=== PATIENT | female | born 1975 | race Caucasian/White ===

== ENCOUNTER 2025-01-31 11:19 | Outpatient (CLI) | payer BC, SELFPAY ==
--- NOTE | 2025-01-31 | CA_ITS ---
APPROVED REPORT Exam: Exercise Treadmill Technologist: Michelle Toledo Stress Nurse: Nathalia MENDOSA, RN Ht: 5 ft 6 in Wt: 191 lbs BSA: 1.96 m2 HR: 85 bpm BP: 143/89 mmHg Indications: Rule out ischemia due to chest pain, abnormal ECG Stress Test Details Test: Exercise stress testing was performed using a Dave protocol. HR Resting HR: 85 bpm Max Heart Rate (APMHR): 169.337208 bpm Max HR Achieved: 164 bpm Target HR (85% APMHR): 143.791028 bpm % of APMHR: 97.04 Recovery HR: 103 bpm BP Resting BP: 143.0/89.0 mmHg Max BP: 172.0/88.0 mmHg Recovery BP: 134.0/70.0 mmHg ECG Resting ECG: Sinus rhythm Stress ECG Conclusion Symptoms: None Arrhythmias/Ectopy: PVC ST-T Changes: Less than 0.[address] segment changes. Conclusion: Goel Treadmill Score: + 9 Electronically signed by : Мария Zarate MD 02/01/2025 00:11:13
--- OUTSIDE RECORDS SUMMARY | 2025-01-31 11:24 | XMS_ITS | Continuity of Care Document ---
Author Organization [facility] Address [address] [place] [address] Assessment No assessment recorded. Plan of Treatment Reminders Order Date Submit Date Provider Last Modified By Organization Details Last Modified Time Details Appointments Follow Up 20 2025 08:40A Sabrina Smith PA-C Not available Not available Not available Lab magnesium , serum or plasma 2024 025 JULIANNA [facility], [address], [address], [place], [address], 12/23/2024 08:26:28 renal function panel, serum 2024 025 JULIANNA [facility], [address], [address], [place], [address], 12/23/2024 08:26:28 Referral cardiolog ist referral 2024 025 JULIANNA Not available 01/11/2025 12:20:05 Procedures None recorded. Surgeries None recorded. Imaging electroca rdiogram 2024 025 [email or web address] [facility], [address] [place], [address], 12/22/2024 15:04:11 Medication Orders None recorded. Patient TargetsNo targets recorded. Patient Instructions Encounter Date Encounter Id Patient Instructions Last Modified By Organization Details Last Modified Time 12/22/2024 [id number] CALL W CHANGES RTC OR ED IF SYMPTOMS CHANGE OR WORSEN KEEP NEXT INTERVAL CHECKUP CONT CHRONIC MEDS PERSCRIBED CHRONIC ISSUES ARE STABLE DISCUSSED NATURAL AND EXPECTED COURSE OF THIS DIAGNOSIS AND NEED TO ALERT ME IF SYMPTOMS DO NOT FOLLOW EXPECTED COURSE, OR IF ANY WORSEN INCREASE HCTZ TO 25MG PO QD. asa 81mg po qd. [email or web address] Not available 12/22/2024 14:41:46 Reason for Referral Adventure Therapist Referral for Ch est discomfort Referring Physician: Davonte Smith, Family Medicine, Encounter Date: 12/22/2024 Results Created Date Observation Date Name Description Value Unit Range Abnormal Flag Note LastModifiedBy Organization Detail LastModifiedTime 12/23/1912/23/2024 RENAL PANEL (10) glucose 137 mg/dL 70-99 above high normal Not Available [facility] [address] [place], [address], 12/23/2024 08:26:28 12/23/19 25 12/23/2024 RENAL PANEL (10) BUN 10 mg/dL 6-24 normal Not Available [facility] [address] [place], [address], 12/23/2024 08:26:28 12/23/1912/23/2024 RENAL PANEL (10) creatinine 0.75 mg/dL 0.57-1 .00 normal Not Available [facility] [address] [place], [address], 12/23/2024 08:26:28 12/23/1912/23/2024 RENAL PANEL (10) eGFR 96 mL/mi n/1.7 3 >59 normal Not Available [facility] [address] [place], [address], 12/23/2024 08:26:28 12/23/1912/23/2024 RENAL PANEL (10) BUN/creatini ne ratio 13 9-23 normal Not Available [facility] [address] [place], [address], 12/23/2024 08:26:28 12/23/19 25 12/23/2024 RENAL PANEL (10) sodium 136 mmol/ L 134-14 4 normal Not Available [facility] [address] [facility] [place], [address], 12/23/2024 08:26:28 12/23/19 25 12/23/2024 RENAL PANEL (10) potassium 3.3 mmol/ L 3.5-5. 2 below low normal Not Available [facility] [address] [facility] [place], [address], 12/23/2024 08:26:28 12/23/19 25 12/23/2024 RENAL PANEL (10) chloride 99 mmol/ L 96-106 normal Not Available [facility] [address] [facility] [place], [address], 12/23/2024 08:26:28 12/23/19 25 12/23/2024 RENAL PANEL (10) carbon dioxide, total 22 mmol/ L 20-29 normal Not Available [facility] [address] [facility] [place], [address], 12/23/2024 08:26:28 12/23/19 25 12/23/2024 RENAL PANEL (10) calcium 9.3 mg/dL 8.7-10 .2 normal Not Available [facility] [address] [facility] [place], [address], 12/23/2024 08:26:28 12/23/19 25 12/23/2024 RENAL PANEL (10) phosphorus 3.2 mg/dL 3.0-4. 3 normal Not Available [facility] [address] [facility] [place], [address], 12/23/2024 08:26:28 12/23/19 25 12/23/2024 RENAL PANEL (10) albumin 4.2 g/dL 3.8-4. 9 normal Not Available [facility] [address] [place], [address], 12/23/2024 08:26:28 12/23/1912/23/2024 MAGNE SIUM magnesium 2.0 mg/dL 1.6-2. 3 normal Not Available [facility] [address] [facility], [place], [address], 12/23/2024 08:26:28 12/23/19 25 12/27/2024 elect rocar diogr am No observ ation record ed. [email or web address] [facility] [address] [facility], [place], [address], 12/27/2024 13:54:52 12/24/1912/22/2024 elect rocar diogr am No observ ation record ed. JENNYFER [facility] [address] [place], [address], 12/23/2024 11:31:23 Result Notes None recorded. Problems Name Problem SNOMED Code Status Onset Date Resolution Date Notes Provider Name and Address Organization Details Recorded Time Exposure to SARS-CoV -2 Completed 07/03/2020 Removal Reason: Problem added by user arshal l45 from the COVID-19 watch flag Amara Pedraza null, [place] - [facility] 1 08:23:57 Hyperten sive disorder 61269183 Active 2018 Octavia Rojo null, [place] - [facility] 9 08:51:29 Anxiety 23888707 Active 2018 Octavialuca Rojo null, [place] - [facility] 9 08:51:35 Depressi ve disorder 92049546 Active 2018 Octavia Grullonter null, [place] - [facility] 9 08:51:40 Inguinal lymphade nopathy 067593898 Completed 201905/29/2021 Jane Franco, [employer] [address], [place], [address] , [place] - [facility] 2 15:54:19 Uterine leiomyom a 52132235 Active 2019 Jane Franco APRN [address], [place], [address] , [place] - [facility] 0 12:48:28 Endometr ium thickene d 205757057 Completed 201912/25/2019 Noreen Segura MD [address], [place], [address] , [place] [facility] 0 18:23:33 Menorrha cristóbal 071456041 Completed 201905/29/2021 Jane Franco APRN [address], [place], [address] , [place] [facility] 3 15:27:49 Enlarged uterus 241419882 Completed 201912/25/2019 Noreen Segura MD [address], [place], [address] , [place] [facility] 0 18:23:38 Polyp of corpus uteri 21230059 Completed 201905/29/2021 Jane Franco APRN [address], [place], [address] , [place] [facility] 2 15:54:15 Crying associat ed with mood 700199472 Completed 202108/11/2022 Jane Franco APRN [address], [place], [address] , [place] [facility] 3 08:25:06 Night sweats 37201242 Active 2021 Jane Franco APRN [address], [place], [address] , [place] [facility] 2 15:55:33 Body mass index 30+ - obesity 085487605 Active 2021 Jane Franco APRN [address], [place], [address] , [place] [facility] 2 15:55:42 Mammogra phy abnormal 436151817 Active 2022 Possible evolving focal symmetry left breast. Recommen d spot compress ion tomograp hy in the cc view, true lateral tomogram , and sonograp hic evaluati on-6 mm hypoecho ic nodule superfic ially at the 4 o'clock position of the left breast-b x schedule d 06/19/22- stromal sclerosi s and FBC; no atypia or malignan cy Jane Salvador, [employer] [address], [place], [address] , [place] [facility] 3 17:01:57 Menorrha cristóbal 631164667 Active 2022 Jane Franco APRN [address], [place], [address] , [place] [facility] 3 15:27:49 Anemia 895275308 Active 2022 Jane Franco APRN [address], [place], [address] , [place] [facility] 3 15:27:53 Dysmenor tobi 774404335 Active 2022 Jane Franco APRN [address], [place], [address] , [place] [facility] 3 15:27:55 Cough 09053982 Active 2022 Xiomara Easley PA-C [address], [place], [address] , [place] [facility] 3 11:18:54 COVID-19 408203341 Active 2024 Xiomara Easley PA-C [address], [place], [address] , [place] [facility] 5 09:31:09 Problem Notes None recorded. Procedures Surgical History Date Name Laterality Status Provider Name and Address Organization Details Recorded Time 06/20/19 Breast Biopsy completed Jane Franco APRN [address], [place], [address], [place] [facility] 06/23/2022 17:02:18 05/30/19 23 Date of Last Mammogram completed Jane Franco APRN [address], [place], [address], [place] [facility] 06/02/2022 16:41:04 05/29/19 22 Date of Last Pap Smear completed Jane Lópezcker, [employer] [address], [place], [address], [place] - [facility] 06/03/2021 11:55:05 02/01/20 21 Date of Last Colonoscopy completed Bethany Scales [place] - [facility] 05/29/2021 09:46:27 12/08/19 20 hysteroscopy completed Amara Pedraza [place] - [facility] 12/25/2020 08:17:25 12/29/19 13 Tubal Ligation completed Amara Pedraza [place] - [facility] 12/25/2020 08:17:25 07/17/19 01 Caesarean Section completed Amara MAGUIRE - [facility] 12/25/2020 08:17:25 Tubal Ligation completed Octavia Rojo [place] - [facility] 06/25/2018 08:55:44 section completed Octavia Rojo [place] - [facility] 06/25/2018 08:55:53 Cholecystectomy, laparoscopic completed Octavia Rojo [place] - [facility] 06/25/2018 08:55:58 Imaging Results None recorded. Procedure Notes None recorded. Medical Equipment None Reported. Allergies Allergen ID Allergen Name Allergen Category Reaction Reaction Severity Criticality Documentation Date Start Date Code Code System Note Provider Name and Address Organization Details Recorded Time 045774 doxycycli ne Not available rash Not available Not available 11/18/2022 3640 RxNorm Jeffrey villaseñor [place] - [facility] 3 14:19:58 70309 amoxicill in trihydrat e medicatio n hives Not available Not available 01/11/20162007 10708 8 RxNorm React ion: Hives ; Comme nt: amoxi cilli n; Not Available [facility] 6 09:16:35 Medications Name Sig Start Date Stop Date Status Note LastModified by Organization Details LastModified Time Synalar 0.025 % topical ointment apply to affected area(s) by topical route 2 times per day x one week 11/09 completed Synalar 0.025 % topical ointment ;Recorde d Status: Recorded on: 09/22/19 09 12:04PM; Disconti nued Status: Disconti nued on: 11/10/19 10 11:03AM; User: [facility];P rinted: 09/22/19 09 Not Available Not Available Not Available fluconazo le 100 mg tablet take 1 tablet by oral route daily for 7 days 07/08 completed fluconaz ole 100 mg oral tablet;P rescribe Status: Prescrib ed on: 06/22/19 16 10:47AM; Disconti nued Status: Disconti nued on: 07/09/19 16 4:03PM;U ser: [email or web address];E st. Completi on: 06/29/19 16;Indic ation: Vulvovag inal Candidia sis - ();Phar macyVeri fied: 06/22/19 16 10:47AM Not Available Not Available Not Available venlafaxi ne ER 37.5 mg capsule,e xtended release 24 hr TAKE ONE CAPSULE BY MOUTH DAILY FOR FOURTEEN DAYS 12/06 completed Not Available Not Available Not Available prednison e 10 mg tablet TAKE ONE TABLET BY MOUTH EVERY DAY FOR 5 DAYS 10/16 completed Not Available Not Available Not Available venlafaxi ne ER 75 mg capsule,e xtended release 24 hr TAKE ONE CAPSULE BY MOUTH EVERY DAY active Not Available Not Available No t Available doxycycli ne hyclate 100 mg capsule TAKE ONE CAPSULE BY MOUTH TWICE DAILY 07/03 completed Not Available Not Available Not Available clindamyc in HCl 300 mg capsule Take 1 capsule 3 times a day by oral route for 7 days. 12/20 completed Not Available Not Available Not Available azithromy trevon 250 mg tablet TAKE 2 TABLETS BY MOUTH ON DAY 1, THEN TAKE 1 TABLET DAILY ON DAYS 2-5 06/01 completed Not Available Not Available Not Available hydrocodo ne 5 mg-acetam inophen 325 mg tablet Take 1 Tablet by mouth once for 1 dose. Bring to office on day of procedur e. 11/10 completed Not Available Not Available Not Available prednison e 20 mg tablet TAKE ONE TABLET BY MOUTH EVERY DAY FOR 5 DAYS 06/01 completed Not Available Not Available Not Available Diflucan 150 mg tablet take 1 tablet (150 mg) by oral route once 12/16 completed Diflucan 150 mg oral tablet;R ecorded Status: Recorded on: 12/01/19 13 11:51AM; Disconti nued Status: Disconti nued on: 12/17/19 13 10:46AM; User: Xavier rinted: 12/01/19 13 Not Available Not Available Not Available ciproflox acin 500 mg tablet 07/17 completed Not Available Not Available Not Available doxycycli ne monohydra te 100 mg tablet 11/22 completed Not Available Not Available Not Available triamcino lone acetonide 0.1 % topical cream APPLY A THIN LAYER TO THE AFFECTED AREA(S) BY TOPICAL ROUTE 2 TIMES PER DAY active Not Available Not Available No t Available ketorolac 30 mg/mL (1 mL) injection solution Inject 30 mg by intramus cular route. 12/25 completed Not Available Not Available Not Available terbinafi ne HCl 250 mg tablet TAKE TWO TABLETS BY MOUTH EVERY DAY FOR 7 DAYS, THREE WEEKS off THEN REPEAT 08/08 completed Not Available Not Available Not Available alprazola m 0.5 mg tablet TAKE ONE TABLET BY MOUTH DAILY NEEDED FOR ANXIETY active Not Available Not Available No t Available citalopra m 20 mg tablet TAKE ONE TABLET BY MOUTH DAILY 12/22 completed Not Available Not Available Not Available famotidin e 20 mg tablet TAKE ONE TABLET BY MOUTH TWICE DAILY 08/08 completed Not Available Not Available Not Available Flagyl 500 mg tablet take 1 tablet (500 mg) by oral route every 12 hours for 7 days 05/27 completed Flagyl 500 mg oral tablet;R ecorded Status: Recorded on: 04/22/19 14 11:36AM; Disconti nued Status: Disconti nued on: 05/27/19 14 1:23PM;U ser: [email or web address]; Printed: 04/22/19 14 Not Available Not Available Not Available amlodipin e 10 mg tablet TAKE ONE TABLET BY MOUTH DAILY 2024 active Not Available Not Available Not Avai lable Xanax 0.25 mg tablet take 1 tablet (0.25 mg) by oral route 3 times per day 01/21 completed Xanax 0.25 mg oral tablet;R ecorded Status: Recorded on: 11/10/19 10 12:01PM; Disconti nued Status: Disconti nued on: 01/22/20 10 2:33PM;U ser: [email or web address];In dication : Anxiety - (3000 00) Not Available Not Available Not Available doxycycli ne monohydra te 100 mg capsule Take 1 capsule twice a day by oral route for 10 days. 11/18 completed Not Available Not Available Not Available pantopraz ole 40 mg tablet,de layed release TAKE ONE TABLET BY MOUTH TWICE DAILY active Not Available Not Available No t Available oseltamiv ir 75 mg capsule TAKE ONE CAPSULE BY MOUTH EVERY DAY FOR 10 DAYS 11/10 completed Not Available Not Available Not Available triamcino lone acetonide 0.1 % topical ointment 05/29 completed Not Available Not Available Not Available misoprost ol 200 mcg tablet 12/18 completed Not Available Not Available Not Available metoprolo l tartrate 50 mg tablet take 1 tablet (50 mg) by oral route 1 time per day with meals 06/15 completed metoprol ol tartrate 50 mg oral tablet;R ecorded Status: Recorded on: 05/17/19 13 11:18AM; Disconti nued Status: Disconti nued on: 06/16/19 13 2:58PM;U ser: [email or web address];I ndicatio n: Hyperten mook - (4019 00) Not Available Not Available Not Available hydrochlo rothiazid e 12.5 mg capsule TAKE ONE CAPSULE BY MOUTH DAILY active Not Available Not Available No t Available Valtrex 1 gram tablet Take 1 tablet 3 times a day by oral route for 7 days. 12/20 completed Not Available Not Available Not Available hydrochlo rothiazid e 25 mg tablet take 1 tablet (25 mg) by oral route once daily 11/09 completed hydrochl orothiaz anup 25 mg oral tablet;R ecorded Status: Recorded on: 09/22/19 09 11:27AM; Disconti nued Status: Disconti nued on: 11/10/19 10 11:03AM; User: alix Not Available Not Available Not Available methylpre dnisolone 4 mg tablets in a dose pack take as directed ON package 05/04 completed Not Available Not Available Not Available labetalol 100 mg tablet take 1 tablet (100 mg) by oral route once daily 11/15 completed labetalo l 100 mg oral tablet;R ecorded Status: Recorded on: 07/14/19 13 10:18AM; Disconti nued Status: Disconti nued on: 11/16/19 13 3:17PM;U ser: [email or web address];Lucila grewal Completi on: 11/11/19 13;Print ed: 07/14/19 13 Not Available Not Available Not Available albuterol sulfate HFA 90 mcg/actua tion aerosol inhaler inhale 2 puffs EVERY 4 TO 6 HOURS NEEDED active Not Available Not Available No t Available Terazol 7 0.4 % vaginal cream insert 1 applicat orful by vaginal route once daily at bedtime for 7 days 12/16 completed Terazol 7 0.4 % vaginal cream;Re corded Status: Recorded on: 12/01/19 13 11:51AM; Disconti nued Status: Disconti nued on: 12/17/19 13 10:46AM; User: [email or web address];Lucila grewal Completi on: 12/08/19 13;Print ed: 12/01/19 13 Not Available Not Available Not Available cefdinir 300 mg capsule TAKE ONE CAPSULE BY MOUTH EVERY TWELVE HOURS FOR SEVEN DAYS 12/14 completed Not Available Not Available Not Available losartan 100 mg tablet TAKE ONE TABLET BY MOUTH DAILY 2024 active Not Available Not Available Not Avai lable fluticaso ne propionat e 50 mcg/actua tion nasal spray,isidro pension SPRAY 2 SPRAYS INTO EACH NOSTRIL ONCE DAILY active Not Available Not Available No t Available doxycycli ne hyclate 100 mg tablet TAKE ONE TABLET BY MOUTH TWICE DAILY FOR 7 DAYS 12/24 completed Not Available Not Available Not Available diazepam 5 mg tablet Take 1 Tablet by mouth once for 1 dose. Bring to office on day of procedur e. 11/10 completed Not Available Not Available Not Available Premarin 0.625 mg/gram vaginal cream insert 0.5 gram by vaginal route twice weekly for 30 days 11/01 completed Premarin 0.625 mg/gram vaginal cream;Pr escribe Status: Prescrib ed on: 07/05/19 16 1:30PM;U ser: [email or web address]; Est. Completi on: 11/02/19 16;Pharm [email or web address] ied: 07/05/19 16 1:30PM Not Available Not Available Not Available metoprolo l succinate 04/22 completed metoprol ol succinat e Oral;Rec orded Status: Recorded on: 11/16/19 13 3:19PM;D iscontin ued Status: Disconti nued on: 04/22/19 14 10:57AM; User: [email or web address] Not Available Not Available Not Available Loestrin 24 Fe 1 mg-20 mcg (24)/75 mg (4) tablet take 1 tablet (1-20 (24)-75( 4) mg-mcg-m g) by oral route daily for 28 days 05/17 completed Loestrin 24 Fe 1 mg-20 mcg (24)/75 mg (4) oral tablet;R ecorded Status: Recorded on: 12/10/19 12 9:38AM;D iscontin ued Status: Disconti nued on: 05/17/19 13 11:16AM; User: [email or web address];Lucila st. Completi on: 06/24/19 13;Print ed: 12/10/19 12 Not Available Not Available Not Available Pristiq 50 mg tablet,ex tended release take 1 tablet (50 mg) by oral route once daily for 30 days 08/10 completed Pristiq 50 mg oral tablet extended release 24 hr;Recor ded Status: Recorded on: 09/08/19 14 3:44PM;D iscontin ued Status: Disconti nued on: 08/11/19 15 9:17AM;U ser: santos;E st. Completi on: 09/03/19 15;Print ed: 09/08/19 14 Not Available Not Available Not Available Paxlovid 300 mg (150 mg x 2)-100 mg tablets in a dose pack Take 1 dose pk by oral route as directed . 07/18 completed Not Available Not Available Not Available Vitals Date Recorded Body height Respiratory rate Pain severity - 0-10 verbal numeric rating [Score] - Reported Body temperature Heart rate Oxygen saturation Oxygen saturation in Arterial blood by Pulse oximetry Systolic And Diastolic Provider Name and Address Organization Details Last Updated DateTime 5 167.64 cm 14 /min 0 99.2 [degF] 82 /min 99 % 99 % 152/94 mm[Hg] Kari Mancini [place] - [facility] 5 14:09:37 Social History Question Answer Notes LastModified by Organizat ion Details LastModified Time Tobacco Smoking Status Never Smoker Octavia villaseñor, [place] - [facility] 06/25/2018 08:54:17 Do You Have An Advance Directive? Yes Information not available 06/25/2018 How Many Years Have You Consumed Alcohol? 25 [email or web address] Information not available 12/25/2020 Are You Blind Or Do You Have Difficulty Seeing? No [email or web address] Information not available 06/19/2022 Is Blood Transfusion Acceptable In An Emergency? Yes Information not available 06/25/2018 What Is Your Level Of Caffeine Consumption? Moderate Information not available 06/25/2018 How Much Tobacco Do You Chew? None Information not available 06/25/2018 In The 14 Days Before Symptom Onset, Have You Had Close Contact With A Laboratory-confir med COVID-19 While That Case Was Ill? No Information not available 08/08/2022 In The 14 Days Before Symptom Onset, Have You Had Close Contact With A Person Who Is Under Investigation For COVID-19 While That Person Was Ill? No Information not available 08/08/2022 Have You Been To An Area Known To Be High Risk For COVID-19? No Information not available 08/08/2022 Are You Deaf Or Do You Have Serious Difficulty Hearing? No Information not available 06/25/2018 What Type Of Diet Are You Following? REGULAR Information not available 06/25/2018 Which Illicit Or Recreational Drugs Have You Used? Denies Information not available 06/25/2018 Have You Processed Blood Or Body Fluids From An Ebola Virus Disease Patient Without Appropriate PPE? No Information not available 08/08/2022 Do You Reside In Or Have You Traveled To An Area Where Ebola Virus Transmission Is Active? No Information not available 08/08/2022 What Is The Highest Grade Or Level Of School You Have Completed Or The Highest Degree You Have Received? [id number] [email or web address] Information not available 12/25/2020 Have There Been Any Changes To Your Family Or Social Situation? No Information no t available 08/08/2022 What Is The Fluoride Status Of Your Home? Fluoridated Information not available 08/08/2022 Have You Recently Or Are You Planning To Travel To An Area With Zika Virus? No Information not available 08/08/2022 Live Alone Or With Others? With Others [email or web address] Information not available 06/19/2022 Last Menstrual Period? 07/27/2022 Information not available 08/08/2022 Do You Have A Medical Power Of Shop Assistant? No Information not available 08/08/2022 What Was The Date Of Your Most Recent Tobacco Screening? 01/24/2025 [email or web address] Information not available 01/24/2025 How Many Children Do You Have? 3 Information not available 06/25/2018 Performs Monthly Self-breast Exam? No [email or web address] Information no t available 06/19/2022 Do You Use Protection During Sex? Always Information not available 08/08/2022 Do You Use Protection Against STDs? No [email or web address] Information not available 06/19/2022 What Is Your Relationship Status? Information not available 06/25/2018 Do You Use Your Seat Belt Or Car Seat Routinely? Yes [email or web address] Information not available 12/25/2020 Seat Belts Used Routinely Yes Information not available 06/19/2022 Are You Sexually Active? Yes Information not available 02/15/2021 Do You Have Smoke And Carbon Monoxide Detectors In Your Home? Yes [email or web address] Information not available 12/25/2020 Are You Passively Exposed To Smoke? No [email or web address] Information no t available 12/25/2020 How Much Tobacco Do You Smoke? No [email or web address] Information not available 06/19/2022 Do You Use Sunscreen Routinely? Yes Information not available 06/25/2018 Has Tobacco Cessation Counseling Been Provided? No Information not available 08/08/2022 Do You Have Difficulty Walking Or Climbing Stairs? No Information not available 06/19/2022 What Contraceptive Method Was Reported At Start Of This Visit? Female Sterilization Information not available 08/08/2022 Do You Want To Talk About Contraception Or Prevention During Your Visit Today? No - I Do Not Want To Talk About Contraception Today Because I Am Here For Something Else Information not available 08/08/2022 Do You Have Any Future Plans To Get ? No, I Don't Want To Become Information not available 08/08/2022 Sex: Female Functional Status Question Answer Note LastModified by Radiance ion Details LastModified Time How many times per week do you consume alcohol? 5-7 times per week Information not available 08/08/2022 Do you or have you ever used smokeless tobacco? Never used smokeless tobacco [email or web address] Information not available 07/18/2019 Are you currently employed? Yes [email or web address] Information not available 12/25/2020 Do you have transportation difficulties? No Information not available 08/08/2022 Urinary incontinence assessment performed? No [email or web address] Information not available 06/19/2022 Are you able to care for yourself independently? Yes [email or web address] Information not available 12/25/2020 Do you have difficulty dressing, bathing, grooming, or toileting? No [email or web address] Information not available 06/19/2022 Do you or have you ever used e-cigarettes or vape? Never used electronic cigarettes Information not available 07/18/2019 What is your exercise level? Occasional Information not available 06/25/2018 Do you use any illicit or recreational drugs? No Information not available 08/08/2022 Do you or have you ever used any other forms of tobacco or nicotine? No Information not available 08/08/2022 What is your level of alcohol consumption? Moderate [email or web address] Information not available 12/25/2020 What is your status? Not Information no t available 08/08/2022 Are you able to walk independently without assistance or assistive devices? YESWOREST [email or web address] Information not available 06/19/2022 Do you have difficulty doing errands alone? No [email or web address] Information not available 06/19/2022 What is your occupation? [employer] Information not available 06/25/2018 Mental Status Question Answer Note LastModified by Organizat ion Details LastModified Time Do you feel stressed (tense, restless, nervous, or anxious, or unable to sleep at night)? [id number] [email or web address] Information not available 12/25/2020 Do you have difficulty concentrating, remembering or making decisions? No [email or web address] Information no t available 06/19/2022 Family History Relationship Description Onset Age of this Age Resolved Age Notes LastModified by Organization Details LastModified Time Maternal Grandmother Cerebrovascu lar accident ntarter Not available 08:53:33 Maternal Grandmother Hypertensive disorder ntarter Not available 2018 08:53:59 Brother Diabetes mellitus Not available 09:09:30 Maternal Grandfather Hypertensive disorder [email or web address] Not available 12/06 08:17:03 Mother Hypertensive disorder ntarter Not available 2018 08:53:59 Mother Disorder of thyroid gland ntarter Not available 2018 08:54:10 Mother Heart disease 16 [email or web address] Not available 12/06 08:17:03 Mother Arthritis [email or web address] Not avail able 12/25/2020 08:17:03 Father Hypercholest erolemia [email or web address] Not available 12/06 08:17:03 Father Hypertensive disorder [email or web address] Not available 12/06 08:17:03 Maternal Uncle Diabetes mellitus [email or web address] Not available 09:09:30 Medical History Condition Response AIDS/HIV N ADD/ADHD N Anxiety Disorder Y Allergies/Hayfever Y Acid Reflux (GERD) Y Hypertension Y Depression Y Gynecological History Statement/Question Response Abnormal Pap N Date of Last Mammogram 05/30/2022 Flow Heavy Date of LMP 07/27/2022 Post Menopausal Bleeding N STIs/STDs N HPV Vaccine N Duration of Flow (days) 8 Current Control Method Tubal Ligat ion Age at Menarche 12 Age at First Child 25 Last Annual Exam/Provider 05/29/2021 w/DT Last Lipids 06/19/22 abn Date of Last Colonoscopy 01/31/2021 Frequency of Cycle (Q days) 26 Sexually Active? Y Menses Monthly Y Date of Last Pap Smear 05/29/2021 Sexual Problems? N LMP Definite Hormone Replacement Therapy N Obstetrics History GPAL:G 3 P 3 0 0 3 Type Value Full Term 3 Living 3 Total 3 Immunizations Vaccine Type Date Status Note Provider Name and Address Organization Details Recorded Time Influenza, split virus, quadrivalent, preservative 07/18/19 20 cancelled patient objection Jane Salvador, [employer] [address], [place], [address], [place] [facility] 07/18/2019 16:43:45 Influenza, split virus, quadrivalent, PF 12/26/19 21 completed Amara Pedraza null, [place] - [facility] 01/08/2021 13:40:47 COVID-19, mRNA, LNP-S, PF, 100 mcg/0.5mL dose or 50 mcg/0.25mL dose 04/19/19 22 completed Davonte Smith PA-C [address], [place], [address], [place] [facility] 04/19/2021 11:19:06 Tdap 06/25/19 22 completed Amara Pedraza null, [place] [facility] 06/24/2021 09:29:49 Influenza, split virus, quadrivalent, PF 01/13/20 23 completed Davonte Smith PA-C [address], [place], [address], [place] [facility] 01/12/2023 15:32:57 Influenza, split virus, trivalent, preservative 01/25/20 24 completed Xiomara Spivey PA-C [address], [place], [address], [place] [facility] 01/25/2024 15:25:34 COVID-19, mRNA, LNP-S, PF, 100 mcg/0.5mL dose or 50 mcg/0.25mL dose 06/13/19 21 completed Tiffanie Coats null, [place] - [facility] 08/08/2022 14:58:26 COVID-19, mRNA, LNP-S, PF, 100 mcg/0.5mL dose or 50 mcg/0.25mL dose 07/11/19 21 completed Tiffanie villaseñor, [place] - [facility] 08/08/2022 14:58:26 Past Encounters Encounter ID Performer Location Encounter Start Date Encounter Closed Date Diagnosis/Indication Diagnosis SNOMED-CT Code Diagnosis ICD10 Code Diagnosis IMO Codes Diagnosis Note [id number] ALISON Kee [address] [address] 12/06/2024 14:41:29 12/06/2024 14:55:29 Cellulitis of face 757248782 J34.0 30297 Eruption o f skin of face 0113413098 R21 [id number] Davonte Smith PA-C [place] [address] [address] 12/22/2024 14:03:57 12/22/2024 14:41:52 Chest discomfort 551632503 R07.89 68296 -new Essential hypertension 51243030 I10 33569 -sub optimal control Health Concerns Section Related Observation LastModified by Organization Detai ls LastModified Time None Recorded Concern Status LastModified by Organization Details LastModified Time None Recorded Payers Encounter Date Sequence Insurance Name Policy Number Policy Sorenson Covered Member ID Sorenson Member ID Guarantor Name 12/22/2024 1 [employer] [id number] 1 Tiara Guerra [id number] Tiara Guerra Notes Date Note Type Note Provider Name and Address Organization Details Recorded Time 12/22/2024 text/html PT had some twinges in her chest last week, on and off, pt started checking BP. BP was running elevated 150/90's. PT restarted hctz at 12.5mg and staying about the same at home running 140-150. Last episode of twinge was this AM. none currently. no new meds, pt reports some stress last week at work. no new diet. disc vitalsdisc labsdisc ekg. Davonte Smith PA-C [address], [place], [address], [place] - [facility] 12/22/2024 14:42:08 OBGyn Episode No OBEpisode recorded.
--- OUTSIDE RECORDS SUMMARY | 2025-01-31 11:24 | XMS_ITS | Data Portability ---
Author Organization [facility] RACQUEL Null [place] [facility] Address [address] [place] [address] Care Team Providers Care Systems Tester Name Role Phone CHUCKIE RUIZ Collar Tacker Assessment No assessment recorded. Plan of Treatment Reminders Order Date Submit Date Provider Last Modified By Organization Details Last Modified Time Details Appointments FOLLOW UP [facility] 2025 02:30P M CHUCKIE GALLO-Bull Not available Not available Not available Lab None recorded . Referral None recorded . Procedures None recorded . Surgeries None recorded . Imaging None recorded . Medication Orders None recorded . Patient TargetsNo targets recorded. Patient InstructionsNo instructions recorded. Reason for Referral None Reported. 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 Medical Equipment None Reported. Allergies Allergen ID Allergen Name Allergen Category Reaction Reaction Severity Criticality Documentation Date Start Date Code Code System Note Provider Name and Address Organization Details Recorded Time 345940 amoxicill in trihydrat e medicatio n Not available Not available Not available 02/29/20162015 36671 8 RxNorm Comme nt: Creat ed By: [place] Cryst al;Cr eated Date: 016 2:23: 03 PM; Not Available [facility] 6 10:10:22 958203 doxycycli ne Not available Not available Not available Not available 02/25/2023 3640 RxNorm Darshana Santana [facility] 3 08:04:01 Medications Name Sig Start Date Stop Date Status Note LastModified by Organization Details LastModified Time amlodipine active Medicatio n Description : amlodipine; refills:0 Not Available Not Available Not Available losartan active Not Available Not Avai lable Not Available Celexa active Medication Description : citalopram; refills:0 Not Available Not Available Not Available pantoprazole active Not Available Not Available Not Available Vitals None Recorded Social History Question Answer Notes LastModified by Organizat ion Details LastModified Time Tobacco Smoking Status Never Smoker Darshana Santana [facility] 02/25/2023 08:05:13 Sunscreen Use? Yes [email or web address] Informatio n not available 02/25/2023 Tanning Bed Use Yes Informati on not available 02/25/2023 Are You Or Trying To Become ? No [email or web address] Information not available 02/25/2023 Are You On Control? Yes IUD [email or web address] Information not available 02/25/2023 Are You ? No Information not available 02/25/2023 Sex: Female Functional Status Question Answer Note LastModified by Organizat ion Details LastModified Time Do you use any illicit or recreational drugs? No Information not available 02/25/2023 What is your level of alcohol consumption? Moderate [email or web address] Information not available 02/25/2023 Mental Status None recorded. Family History Relationship Description Onset Age of this Age Resolved Age Notes LastModified by Organization Details LastModified Time Father No current problems or disability [email or web address] Not available 02/25 08:04:58 Mother No current problems or disability [email or web address] Not available 02/25 08:04:58 Medical History Condition Response Autoimmune disease N Melanoma N Skin Cancer N Squamous Cell Carcinoma N Basal Cell Carcinoma N Gynecological HistoryNo gynecological history recorded. Obstetrics History GPAL:G 0 P 0 0 0 0 Past Encounters Encounter ID Performer Location Encounter Start Date Encounter Closed Date Diagnosis/Indication Diagnosis SNOMED-CT Code Diagnosis ICD10 Code Diagnosis IMO Codes Diagnosis Note [id number] CHUCKIE RUIZ PA-C [address] [address] 02/25/2023 07:37:26 02/25/2023 13:06:45 Multiple benign melanocytic nevi 339878603 D22.5 - Benign moles seen on exam today - SPF 30 or higher broad-spec trum sunscreen recommende d with re-applica tion every 2 hours - Discussed sun protection measures, including wide-brimm ed hat, sun-protec tive clothing, and avoidance of sun during peak hours of 10am-4pm - Avoid tanning beds as these can increase the chances of all 3 types of skin cancer - Instructed to monitor for changes and to call us for appointmen t with any changing or worrisome lesions Seborrheic keratosis 394 394784 L82.1 - Benign overgrowth s of skin- Hereditary lesion on R chest previously bx'd, proven to be an SK. Senile angioma 2321832 I 78.1 - Benign blood vessel growths - Hereditary Solar lentigo 65528300 L 81.4 - Benign brown spots - Sun-induce d Acne 18422576 L70.0 Explained dx.Options include bx, which will likely make it worse cosmetical ly; cosmetic tx; retinoids. Pt prefers retinoid. Topical retinoid recommende d: differin gel OTC. Retinoids can cause irritation . Apply pea-sized amount to dry clean skin at night - start a few times a week, then work up to every other to every night, depending on how skin reacts. Avoid eyes and facial folds. Dryness and irritation is common, especially in the first few weeks. May apply moisturize r over retinoid to reduce irritation . Stop use and call clinic with severe irritation . Sun protect area of applicatio n. Do not use during or breastfeed ing. Handout explaining use provided. [id number] CHUCKIE RUIZ PA-C [facility] [place] [address] [place] [address] 05/09/2024 13:48:56 05/09/2024 14:54:27 Multiple benign melanocytic nevi 820122460 D22.5 - Benign moles seen on exam today - SPF 30 or higher broad-spec trum sunscreen recommende d with re-applica tion every 2 hours - Discussed sun protection measures, including wide-brimm ed hat, sun-protec tive clothing, and avoidance of sun during peak hours of 10am-4pm - Avoid tanning beds as these can increase the chances of all 3 types of skin cancer - Instructed to monitor for changes and to call us for appointmen t with any changing or worrisome lesions Seborrheic keratosis 394 131863 L82.1 - Benign overgrowth s of skin - Hereditary Senile angioma 5424051 I 78.1 - Benign blood vessel growths- Hereditary Solar lentigo 58729741 L 81.4 - Benign brown spots - Sun-induce d Telangiect justin of skin of face 249386372 I78.1 - Pt reports lesions recently bleeding- Has been using TAC, rec to stop- The nature of the Dx was discussed. - Informed treatment would be cosmetic with vascular laser Health Concerns Section Related Observation LastModified by Organization Detai ls LastModified Time None Recorded Concern Status LastModified by Organization Details LastModified Time None Recorded Advance Directives Directive None Recorded Payers Insurance Date Sequence Insurance Name Policy Number Policy Sorenson Covered Member ID Sorenson Member ID Guarantor Name 05/09/2024 1 [employer] [id number] 1 Tiara Guerra [id number] Tiara Guerra Notes Date Note Type Note Provider Name and Address Organization Details Recorded Time 02/25/2023 text/html Patient requests a full body skin exam. Location: Full bodyDuration: 2yrsHistory: No Hx of NMSCAreas of concern: Nose CHUCKIE RUIZ PA-C [address] [place], [address], [facility] 02/25/2023 09:02:45 05/09/2024 text/html ROS as noted in the HPI Patient requests a full body skin exam. Location: Full bodyDuration: AnnualHistory: No hx of NMSC/MMAreas of concern: R nose (pt was given triamcinalone by PCP) CHUCKIE RUIZ PA-C [address] [place], [address], [facility] 05/09/2024 21:13:34 OBGyn Episode No OBEpisode recorded.
--- OUTSIDE RECORDS SUMMARY | 2025-01-31 11:24 | XMS_ITS | Data Portability ---
Author Organization [facility] Address [address] [place] [address] Assessment No assessment recorded. Plan of Treatment Reminders Order Date Submit Date Provider Last Modified By Organization Details Last Modified Time Details Appointments Follow Up 2025 08:40A Sabrina Smith PA-C Not available Not available Not available Lab CBC w/ auto diff 2024 025 JULIANNA [facility], [address], [address], [place], [address], 01/25/2025 08:26:50 lipid panel, serum 2024 025 JULIANNA [facility], [address], [place] [address], [place], [address], 01/25/2025 08:26:50 CMP, serum or plasma 2024 025 JULIANNA [facility], [address], [place] [address], [place], [address], 01/25/2025 08:26:50 magnesium , serum or plasma 2024 025 JULIANNA [facility], [address], [place] [address], [place], [address], 12/23/2024 08:26:28 renal function panel, serum 2024 025 JULIANNA [facility], [address], [place], [place], [address], 12/23/2024 08:26:28 CMP, serum or plasma 2024 025 JULIANNA [facility], [address], [place] [address], [place], [address], 07/19/2024 12:21:30 CBC w/ auto diff 2024 025 JULIANNA [facility], [address], [place] [address], [place], [address], 07/19/2024 12:21:29 lipid panel, serum 2024 025 JULIANNA [facility], [address], [place], [place], [address], 07/19/2024 12:21:30 rapid flu (A+B) 2024 025 [facility], [address] [place] [address], [id number], 06/01/2024 09:30:06 rapid SARS CoV + SARS CoV 2 Ag, QL IA, respirato ry specimen 2024 025 [facility], [address] [place] [address], [id number], 06/01/2024 09:30:06 rapid strep group A, throat 2024 025 [facility], [address] [place] [address], [id number], 06/01/2024 09:30:06 Referral cardiolog ist referral 2024 025 JULIANNA Not available 01/11/2025 12:20:05 Procedures None recorded. Surgeries None recorded. Imaging electroca rdiogram 2024 025 [email or web address] [facility], [address] [place] [address], [id number], 12/22/2024 15:04:11 Medication Orders losartan 100 mg tablet 2024 025 JULIANNA Anna, [address] [place] [address] [address] [place], [place], [id number], 01/24/2025 10:35:49 amlodipin e 10 mg tablet 2024 025 JULIANNA [facility], [address] [place] [address] [place], [id number], 01/24/2025 10:25:44 Valtrex 1 gram tablet 2024 JULIANNA Anna, [address] [place] [address] [place], [id number], 12/20/2024 05:01:55 clindamyc in HCl 300 mg capsule 2024 025 JULIANNA Anna, [address] [place] [address] [address] [place], [place], [id number], 12/20/2024 05:01:55 hydrochlo rothiazid e 12.5 mg capsule 2024 025 JULIANNA Anna, [address] [place] [address] [address] [place], [place], [id number], 07/18/2024 13:04:57 amlodipin e 10 mg tablet 2024 025 JULIANNA Anna, [address] [place] [address] [address] [place], [id number], 11/28/2024 17:08:30 citalopra m 20 mg tablet 2024 025 JULIANNA Anna [address] [place] [address] Dr [place], [place], [id number], 12/22/2024 14:47:50 fluticaso ne propionat e 50 mcg/actua tion nasal spray,isidro pension 2024 025 [facility], [address] [place] [address] , [place], [place], [id number], 12/17/2024 11:32:40 losartan 100 mg tablet 2024 [facility], [address] [place] [address] [address] [place], [place], [id number], 01/14/2025 10:52:28 Paxlovid 300 mg (150 mg x 2)-100 mg tablets in a dose pack 2024 [facility], [address] [place] [address] [address] [place], [place], [id number], 07/18/2024 09:26:15 albuterol sulfate HFA 90 mcg/actua tion aerosol inhaler 2024 [facility], [address] [place] [address] [address] [place], [place], [id number], 06/01/2024 10:37:06 Patient TargetsNo targets recorded. Patient Instructions Encounter Date Encounter Id Patient Instructions Last Modified By Organization Details Last Modified Time 06/01/2024 [id number] Call with change s RTC or ED if symptoms change or worsen Keep next interval check-up Cont. chronic meds as prescribed Chronic conditions are stable Discussed natural and expected course of this diagnosis and need to alert me if symptoms do not follow expected course or if any worsens [email or web address] Not available 06/01/2024 09:14:49 07/18/2024 [id number] CALL WITH CHANGE S RTC OR GO TO ED IF SYMPTOMS CHANGE OR WORSEN DISCUSSED IMPORTANCE OF DIET AND EXERCISE ROUTINE HEALTH MAINTANENCE REVIEWED MEDS REVD WITH PATIENT TODAY, SIDE EFFECTS DISCUSSED AND PATIENT VOICES UNDERSTANDING OF THIS CHRONIC ISSUES ARE STABLE CONT CURRENT MEDICATIONS PERSCRIBED DISCUSSED NATURAL AND EXPECTED COURSE OF THIS DIAGNOSIS AND NEED TO ALERT ME IF SYMPTOMS DO NOT FOLLOW EXPECTED COURSE, OR IF ANY WORSEN. [email or web address] Not available 07/18/2024 09:22:25 12/06/2024 [id number] CALL W CHANGES RTC OR ED IF SYMPTOMS CHANGE OR WORSEN KEEP NEXT INTERVAL CHECKUP CONT CHRONIC MEDS PERSCRIBED CHRONIC ISSUES ARE STABLE DISCUSSED NATURAL AND EXPECTED COURSE OF THIS DIAGNOSIS AND NEED TO ALERT ME IF SYMPTOMS DO NOT FOLLOW EXPECTED COURSE, OR IF ANY WORSEN [email or web address] Not available 12/06/2024 14:53:57 12/22/2024 [id number] CALL W CHANGES RTC OR ED IF SYMPTOMS CHANGE OR WORSEN KEEP NEXT INTERVAL CHECKUP CONT CHRONIC MEDS PERSCRIBED CHRONIC ISSUES ARE STABLE DISCUSSED NATURAL AND EXPECTED COURSE OF THIS DIAGNOSIS AND NEED TO ALERT ME IF SYMPTOMS DO NOT FOLLOW EXPECTED COURSE, OR IF ANY WORSEN INCREASE HCTZ TO 25MG PO QD. asa 81mg po qd. [email or web address] Not available 12/22/2024 14:41:46 01/24/2025 [id number] CALL WITH CHANGE S RTC OR GO TO ED IF SYMPTOMS CHANGE OR WORSEN DISCUSSED IMPORTANCE OF DIET AND EXERCISE ROUTINE HEALTH MAINTANENCE REVIEWED MEDS REVD WITH PATIENT TODAY, SIDE EFFECTS DISCUSSED AND PATIENT VOICES UNDERSTANDING OF THIS CHRONIC ISSUES ARE STABLE CONT CURRENT MEDICATIONS PERSCRIBED DISCUSSED NATURAL AND EXPECTED COURSE OF THIS DIAGNOSIS AND NEED TO ALERT ME IF SYMPTOMS DO NOT FOLLOW EXPECTED COURSE, OR IF ANY WORSEN. 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 Referral for Ch est discomfort Referring Physician: Davonte Smith, Family Medicine, Encounter Date: 12/22/2024 Results Created Date Observation Date Name Description Value Unit Range Abnormal Flag Note LastModifiedBy Organization Detail LastModifiedTime 05/04/19 25 05/05/2024 BASIC METAB OLIC PANEL (8) glucose 94 mg/dL 70-99 normal Not Available [facility] ([facility]) [address] [place], [address], 05/05/2024 08:23:50 05/04/19 25 05/05/2024 BASIC METAB OLIC PANEL (8) BUN 15 mg/dL 6-24 normal Not Available [facility] ([facility]) [address] [place], [address], 05/05/2024 08:23:50 05/04/19 25 05/05/2024 BASIC METAB OLIC PANEL (8) creatinine 0.67 mg/dL 0.57-1 .00 normal Not Available [facility] ([facility]) [address], [place], [address], 05/05/2024 08:23:50 05/04/19 25 05/05/2024 BASIC METAB OLIC PANEL (8) eGFR 106 mL/mi n/1.7 3 >59 normal Not Available [facility] ([facility]) [address] [facility] [place], [address], 05/05/2024 08:23:50 05/04/19 25 05/05/2024 BASIC METAB OLIC PANEL (8) BUN/creatini ne ratio 22 9-23 normal Not Available [facility] ([facility]) [address] [facility] [place], [address], 05/05/2024 08:23:50 05/04/19 25 05/05/2024 BASIC METAB OLIC PANEL (8) sodium 138 mmol/ L 134-14 4 normal Not Available [facility] ([facility]) [address] [facility] [place], [address], 05/05/2024 08:23:50 05/04/19 25 05/05/2024 BASIC METAB OLIC PANEL (8) potassium 3.9 mmol/ L 3.5-5. 2 normal Not Available [facility] ([facility]) [address] [facility] [place], [address], 05/05/2024 08:23:50 05/04/19 25 05/05/2024 BASIC METAB OLIC PANEL (8) chloride 100 mmol/ L 96-106 normal Not Available [facility] ([facility]) [address] [facility] [place], [address], 05/05/2024 08:23:50 05/04/19 25 05/05/2024 BASIC METAB OLIC PANEL (8) carbon dioxide, total 24 mmol/ L 20-29 normal Not Available [facility] ([facility]) [address] [facility] [place], [address], 05/05/2024 08:23:50 05/04/19 25 05/05/2024 BASIC METAB OLIC PANEL (8) calcium 9.4 mg/dL 8.7-10 .2 normal Not Available [facility] ([facility]) [address] [facility], [place], [address], 05/05/2024 08:23:50 05/04/19 25 05/05/2024 SEDIM ENTAT ION RATE- WESTE RGREN sedimentatio n rate-westerg rich 13 mm/HR 0-40 normal Not Available [facility] ([facility]) [address] [facility], [place], [address], 05/05/2024 08:23:51 05/04/19 25 05/05/2024 C-DARIO CTIVE PROTE IN, QUANT C-reactive protein, quant 1 mg/L 0-10 normal Not Available [facility] ([facility]) [address] [facility], [place], [address], 05/05/2024 08:23:51 06/01/19 25 06/01/2024 rapid SARS CoV + SARS CoV 2 Ag, QL IA, respi rator y speci men SARS CoV antigen Positi ve Not Available [address], [address], 06/01/2024 09:05:12 06/01/19 25 06/01/2024 rapid strep group A, throa t Strep negati ve Not Available [address], [address], 06/01/2024 09:05:16 06/01/19 25 06/01/2024 rapid strep group A, throa t Culture No Not Available [address], [address], 06/01/2024 09:05:16 06/01/19 25 06/01/2024 rapid flu (A+B) Flu negati ve Not Available [address], [place], [address], 06/01/2024 09:05:08 06/01/19 25 06/01/2024 rapid flu (A+B) Type Both A & B Not Available [facility] [address], [place], [address], 06/01/2024 09:05:08 07/19/19 25 07/19/2024 CBC WITH DIFFE RENTI AL/PL ATELE T WBC 6.1 x10e3 /uL 3.4-10 .8 normal Not Available [facility] ([facility]) [address] [place], [address], 07/19/2024 12:21:29 07/19/19 25 07/19/2024 CBC WITH DIFFE RENTI AL/PL ATELE T RBC 4.22 x10e6 /uL 3.77-5 .28 normal Not Available [facility] ([facility]) [address] [place], [address], 07/19/2024 12:21:29 07/19/19 25 07/19/2024 CBC WITH DIFFE RENTI AL/PL ATELE T hemoglobin 13.7 g/dL 11.1-1 5.9 normal Not Available [facility] ([facility]) [address] [place], [address], 07/19/2024 12:21:29 07/19/19 25 07/19/2024 CBC WITH DIFFE RENTI AL/PL ATELE T hematocrit 42.4 % 34.0-4 6.6 normal Not Available [facility] ([facility]) [address] [place], [address], 07/19/2024 12:21:29 07/19/19 25 07/19/2024 CBC WITH DIFFE RENTI AL/PL ATELE T MCV 101 fL 79-97 above high normal Not Available [facility] ([facility]) [address] [facility], [place], [address], 07/19/2024 12:21:29 07/19/19 25 07/19/2024 CBC WITH DIFFE RENTI AL/PL ATELE T MCH 32.5 pg 26.6-3 3.0 normal Not Available [facility] ([facility]) [address] [facility], [place], [address], 07/19/2024 12:21:29 07/19/19 25 07/19/2024 CBC WITH DIFFE RENTI AL/PL ATELE T MCHC 32.3 g/dL 31.5-3 5.7 normal Not Available [facility] ([facility]) [address] [facility], [place], [address], 07/19/2024 12:21:29 07/19/19 25 07/19/2024 CBC WITH DIFFE RENTI AL/PL ATELE T RDW 13.0 % 11.7-1 5.4 Not Available [facility] ([facility]) [address] [place], [address], 07/19/2024 12:21:29 07/19/19 25 07/19/2024 CBC WITH DIFFE RENTI AL/PL ATELE T platelets 341 x10e3 /uL 150-45 0 normal Not Available [facility] ([facility]) [address] [place], [address], 07/19/2024 12:21:29 07/19/19 25 07/19/2024 CBC WITH DIFFE RENTI AL/PL ATELE T neutrophils 55 % not estab. normal Not Available [facility] ([facility]) [address] [place], [address], 07/19/2024 12:21:29 07/19/19 25 07/19/2024 CBC WITH DIFFE RENTI AL/PL ATELE T lymphs 30 % not estab. normal Not Available [facility] ([facility]) [address] [place], [address], 07/19/2024 12:21:29 07/19/19 25 07/19/2024 CBC WITH DIFFE RENTI AL/PL ATELE T monocytes 12 % not estab. normal Not Available [facility] ([facility]) [address] [facility], [place], [address], 07/19/2024 12:21:29 07/19/19 25 07/19/2024 CBC WITH DIFFE RENTI AL/PL ATELE T eos 2 % not estab. normal Not Available [facility] ([facility]) [address] [place], [address], 07/19/2024 12:21:29 07/19/19 25 07/19/2024 CBC WITH DIFFE RENTI AL/PL ATELE T basos 1 % not estab. normal Not Available [facility] ([facility]) [address] [facility], [place], [address], 07/19/2024 12:21:29 07/19/19 25 07/19/2024 CBC WITH DIFFE RENTI AL/PL ATELE T immature cells COLLISION TECHNICIAN Not Available [facility] ([facility]) [address] [place], [address], 07/19/2024 12:21:29 07/19/19 25 07/19/2024 CBC WITH DIFFE RENTI AL/PL ATELE T neutrophils (absolute) 3.4 x10e3 /uL 1.4-7. 0 normal Not Available [facility] ([facility]) [address] [place], [address], 07/19/2024 12:21:29 07/19/19 25 07/19/2024 CBC WITH DIFFE RENTI AL/PL ATELE T lymphs (absolute) 1.8 x10e3 /uL 0.7-3. 1 normal Not Available [facility] ([facility]) [address] [place], [address], 07/19/2024 12:21:29 07/19/19 25 07/19/2024 CBC WITH DIFFE RENTI AL/PL ATELE T monocytes(ab solute) 0.7 x10e3 /uL 0.1-0. 9 normal Not Available [facility] ([facility]) [address] [facility], [place], [address], 07/19/2024 12:21:29 07/19/19 25 07/19/2024 CBC WITH DIFFE RENTI AL/PL ATELE T eos (absolute) 0.1 x10e3 /uL 0.0-0. 4 normal Not Available [facility] ([facility]) [address] [facility], [place], [address], 07/19/2024 12:21:29 07/19/19 25 07/19/2024 CBC WITH DIFFE RENTI AL/PL ATELE T baso (absolute) 0.0 x10e3 /uL 0.0-0. 2 normal Not Available [facility] ([facility]) [address] [place], [address], 07/19/2024 12:21:29 07/19/19 25 07/19/2024 CBC WITH DIFFE RENTI AL/PL ATELE T immature granulocytes 0 % not estab. Not Available [facility] ([facility]) [address] [place], [address], 07/19/2024 12:21:29 07/19/19 25 07/19/2024 CBC WITH DIFFE RENTI AL/PL ATELE T immature grans (abs) 0.0 x10e3 /uL 0.0-0. 1 Not Available [facility] ([facility]) [address] [place], [address], 07/19/2024 12:21:29 07/19/19 25 07/19/2024 CBC WITH DIFFE RENTI AL/PL ATELE T NRBC COLLISION TECHNICIAN Not Available [facility] ([facility]) [address] [facility], [place], [address], 07/19/2024 12:21:29 07/19/19 25 07/19/2024 CBC WITH DIFFE YOUSIF AL/RYANN Harris hematology comments: COLLISION TECHNICIAN Not Available [facility] ([facility]) [address] [facility], [place], [address], 07/19/2024 12:21:29 07/19/19 25 07/19/2024 COMP. METAB OLIC PANEL (14) glucose 84 mg/dL 70-99 normal Not Available [facility] ([facility]) [address] [facility], [place], [address], 07/19/2024 12:21:30 07/19/19 25 07/19/2024 COMP. METAB OLIC PANEL (14) BUN 9 mg/dL 6-24 normal Not Available [facility] ([facility]) [address] [facility], [place], [address], 07/19/2024 12:21:30 07/19/19 25 07/19/2024 COMP. METAB OLIC PANEL (14) creatinine 0.74 mg/dL 0.57-1 .00 normal Not Available [facility] ([facility]) [address] [facility], [place], [address], 07/19/2024 12:21:30 07/19/19 25 07/19/2024 COMP. METAB OLIC PANEL (14) eGFR 98 mL/mi n/1.7 3 >59 normal Not Available [facility] ([facility]) [address] [facility], [place], [address], 07/19/2024 12:21:30 07/19/19 25 07/19/2024 COMP. METAB OLIC PANEL (14) BUN/creatini ne ratio 12 9-23 normal Not Available [facility] ([facility]) [address] [facility], [place], [address], 07/19/2024 12:21:30 07/19/19 25 07/19/2024 COMP. METAB OLIC PANEL (14) sodium 138 mmol/ L 134-14 4 normal Not Available [facility] ([facility]) [address] [facility] [place], [address], 07/19/2024 12:21:30 07/19/19 25 07/19/2024 COMP. METAB OLIC PANEL (14) potassium 4.1 mmol/ L 3.5-5. 2 normal Not Available [facility] ([facility]) [address] [facility] [place], [address], 07/19/2024 12:21:30 07/19/19 25 07/19/2024 COMP. METAB OLIC PANEL (14) chloride 101 mmol/ L 96-106 normal Not Available [facility] ([facility]) [address] [facility] [place], [address], 07/19/2024 12:21:30 07/19/19 25 07/19/2024 COMP. METAB OLIC PANEL (14) carbon dioxide, total 21 mmol/ L 20-29 normal Not Available [facility] ([facility]) [address] [place], [address], 07/19/2024 12:21:30 07/19/19 25 07/19/2024 COMP. METAB OLIC PANEL (14) calcium 9.0 mg/dL 8.7-10 .2 normal Not Available [facility] ([facility]) [address] [place], [address], 07/19/2024 12:21:30 07/19/19 25 07/19/2024 COMP. METAB OLIC PANEL (14) protein, total 6.6 g/dL 6.0-8. 5 normal Not Available [facility] ([facility]) [address] [facility] [place], [address], 07/19/2024 12:21:30 07/19/19 25 07/19/2024 COMP. METAB OLIC PANEL (14) albumin 4.1 g/dL 3.8-4. 9 normal Not Available [facility] ([facility]) [address] [place], [address], 07/19/2024 12:21:30 07/19/19 25 07/19/2024 COMP. METAB OLIC PANEL (14) globulin, total 2.5 g/dL 1.5-4. 5 Not Available [facility] ([facility]) [address] [place], [address], 07/19/2024 12:21:30 07/19/19 25 07/19/2024 COMP. METAB OLIC PANEL (14) bilirubin, total 0.9 mg/dL 0.0-1. 2 normal Not Available [facility] ([facility]) [address] [place], [address], 07/19/2024 12:21:30 07/19/19 25 07/19/2024 COMP. METAB OLIC PANEL (14) alkaline phosphatase 70 IU/L 44-121 normal Not Available [facility] ([facility]) [address] [place], [address], 07/19/2024 12:21:30 07/19/19 25 07/19/2024 COMP. METAB OLIC PANEL (14) AST (SGOT) 17 IU/L 0-40 normal Not Available [facility] ([facility]) [address] [place], [address], 07/19/2024 12:21:30 07/19/19 25 07/19/2024 COMP. METAB OLIC PANEL (14) ALT (SGPT) 15 IU/L 0-32 normal Not Available [facility] ([facility]) [address] [place], [address], 07/19/2024 12:21:30 07/19/19 25 07/19/2024 LIPID PANEL cholesterol, total 204 mg/dL 100-19 9 above high normal Not Available [facility] ([facility]) [address] [place], [address], 07/19/2024 12:21:30 07/19/19 25 07/19/2024 LIPID PANEL triglyceride s 78 mg/dL 0-149 normal Not Available [facility] ([facility]) [address] [place], [address], 07/19/2024 12:21:30 07/19/19 25 07/19/2024 LIPID PANEL HDL cholesterol 74 mg/dL >39 normal Not Available [facility] ([facility]) [address] [place], [address], 07/19/2024 12:21:30 07/19/19 25 07/19/2024 LIPID PANEL VLDL cholesterol param 14 mg/dL 5-40 Not Available [facility] ([facility]) [address] [place], [address], 07/19/2024 12:21:30 07/19/19 25 07/19/2024 LIPID PANEL LDL chol calc ([facility]) 116 mg/dL 0-99 above high normal Not Available [facility] ([facility]) [address] [place], [address], 07/19/2024 12:21:30 07/19/19 25 07/19/2024 LIPID PANEL LDL calc comment: COLLISION TECHNICIAN Not Available [facility] ([facility]) [address] [place], [address], 07/19/2024 12:21:30 07/19/19 25 07/20/2024 VITAM IN B12 AND FOLAT E vitamin B12 436 pg/mL 232-12 45 normal Not Available [facility] ([facility]) [address] [place], [address], 07/20/2024 12:23:13 07/19/19 25 07/20/2024 VITAM IN B12 AND FOLAT E folate (folic acid), serum 15.6 NG/mL >3.0 normal A serum folat e gin ntrat ion of less than 3.1 ng/mL is consi dered to repre sent clini param defic iency . Not Available [facility] ([facility]) [address] [facility], [place], [address], 07/20/2024 12:23:13 07/19/1907/19/2024 DIXON EN AUTHO RIZAT ION written authorizatio n Commen t Dixon en Autho rizat ion Recei mary. Autho rizat ion recei mary from [employer] [facility] 07-19 Logge d by Rocky Zimmerman an Not Available [facility] ([facility]) [address] [facility], [place], [address], 07/20/2024 12:23:14 12/23/1912/23/2024 RENAL PANEL (10) glucose 137 mg/dL 70-99 above high normal Not Available [facility] ([facility]) [address] [facility], [place], [address], 12/23/2024 08:26:28 12/23/19 25 12/23/2024 RENAL PANEL (10) BUN 10 mg/dL 6-24 normal Not Available [facility] ([facility]) [address] [place], [address], 12/23/2024 08:26:28 12/23/1912/23/2024 RENAL PANEL (10) creatinine 0.75 mg/dL 0.57-1 .00 normal Not Available [facility] ([facility]) [address] [place], [address], 12/23/2024 08:26:28 12/23/19 25 12/23/2024 RENAL PANEL (10) eGFR 96 mL/mi n/1.7 3 >59 normal Not Available [facility] ([facility]) [address] [place], [address], 12/23/2024 08:26:28 12/23/19 25 12/23/2024 RENAL PANEL (10) BUN/creatini ne ratio 13 9-23 normal Not Available [facility] ([facility]) [address] [facility] [place], [address], 12/23/2024 08:26:28 12/23/19 25 12/23/2024 RENAL PANEL (10) sodium 136 mmol/ L 134-14 4 normal Not Available [facility] ([facility]) [address] [facility] [place], [address], 12/23/2024 08:26:28 12/23/19 25 12/23/2024 RENAL PANEL (10) potassium 3.3 mmol/ L 3.5-5. 2 below low normal Not Available [facility] ([facility]) [address] [facility] [place], [address], 12/23/2024 08:26:28 12/23/19 25 12/23/2024 RENAL PANEL (10) chloride 99 mmol/ L 96-106 normal Not Available [facility] ([facility]) [address] [facility] [place], [address], 12/23/2024 08:26:28 12/23/19 25 12/23/2024 RENAL PANEL (10) carbon dioxide, total 22 mmol/ L 20-29 normal Not Available [facility] ([facility]) [address] [facility] [place], [address], 12/23/2024 08:26:28 12/23/19 25 12/23/2024 RENAL PANEL (10) calcium 9.3 mg/dL 8.7-10 .2 normal Not Available [facility] ([facility]) [address] [place], [address], 12/23/2024 08:26:28 12/23/19 25 12/23/2024 RENAL PANEL (10) phosphorus 3.2 mg/dL 3.0-4. 3 normal Not Available [facility] ([facility]) [address] [place], [address], 12/23/2024 08:26:28 12/23/19 25 12/23/2024 RENAL PANEL (10) albumin 4.2 g/dL 3.8-4. 9 normal Not Available [facility] ([facility]) [address] [facility], [place], [address], 12/23/2024 08:26:28 12/23/19 25 12/23/2024 MAGNE SIUM magnesium 2.0 mg/dL 1.6-2. 3 normal Not Available [facility] ([facility]) [address] [facility], [place], [address], 12/23/2024 08:26:28 01/25/20 25 01/25/2025 CBC WITH DIFFE RENTI AL/PL ATELE T WBC 6.8 x10e3 /uL 3.4-10 .8 normal Not Available [facility] ([facility]) [address] [place], [address], 01/25/2025 08:26:50 01/25/20 25 01/25/2025 CBC WITH DIFFE RENTI AL/PL ATELE T RBC 4.11 x10e6 /uL 3.77-5 .28 normal Not Available [facility] ([facility]) [address] [place], [address], 01/25/2025 08:26:50 01/25/20 25 01/25/2025 CBC WITH DIFFE RENTI AL/PL ATELE T hemoglobin 13.3 g/dL 11.1-1 5.9 normal Not Available [facility] ([facility]) [address] [place], [address], 01/25/2025 08:26:50 01/25/20 25 01/25/2025 CBC WITH DIFFE RENTI AL/PL ATELE T hematocrit 40.4 % 34.0-4 6.6 normal Not Available [facility] ([facility]) [address] [facility], [place], [address], 01/25/2025 08:26:50 01/25/20 25 01/25/2025 CBC WITH DIFFE RENTI AL/PL ATELE T MCV 98 fL 79-97 above high normal Not Available [facility] ([facility]) [address] [facility], [place], [address], 01/25/2025 08:26:50 01/25/20 25 01/25/2025 CBC WITH DIFFE RENTI AL/PL ATELE T MCH 32.4 pg 26.6-3 3.0 normal Not Available [facility] ([facility]) [address] [facility], [place], [address], 01/25/2025 08:26:50 01/25/20 25 01/25/2025 CBC WITH DIFFE RENTI AL/PL ATELE T MCHC 32.9 g/dL 31.5-3 5.7 normal Not Available [facility] ([facility]) [address] [place], [address], 01/25/2025 08:26:50 01/25/20 25 01/25/2025 CBC WITH DIFFE RENTI AL/PL ATELE T RDW 11.8 % 11.7-1 5.4 Not Available [facility] ([facility]) [address] [facility], [place], [address], 01/25/2025 08:26:50 01/25/20 25 01/25/2025 CBC WITH DIFFE RENTI AL/PL ATELE T platelets 308 x10e3 /uL 150-45 0 normal Not Available [facility] ([facility]) [address] [place], [address], 01/25/2025 08:26:50 01/25/20 25 01/25/2025 CBC WITH DIFFE RENTI AL/PL ATELE T neutrophils 55 % not estab. normal Not Available [facility] ([facility]) [address] [facility], [place], [address], 01/25/2025 08:26:50 01/25/20 25 01/25/2025 CBC WITH DIFFE RENTI AL/PL ATELE T lymphs 32 % not estab. normal Not Available [facility] ([facility]) [address] [place], [address], 01/25/2025 08:26:50 01/25/20 25 01/25/2025 CBC WITH DIFFE RENTI AL/PL ATELE T monocytes 11 % not estab. normal Not Available [facility] ([facility]) [address] [facility], [place], [address], 01/25/2025 08:26:50 01/25/20 25 01/25/2025 CBC WITH DIFFE RENTI AL/PL ATELE T eos 1 % not estab. normal Not Available [facility] ([facility]) [address] [facility], [place], [address], 01/25/2025 08:26:50 01/25/20 25 01/25/2025 CBC WITH DIFFE RENTI AL/PL ATELE T basos 1 % not estab. normal Not Available [facility] ([facility]) [address] [place], [address], 01/25/2025 08:26:50 01/25/20 25 01/25/2025 CBC WITH DIFFE RENTI AL/PL ATELE T immature cells COLLISION TECHNICIAN Not Available [facility] ([facility]) [address] [facility], [place], [address], 01/25/2025 08:26:50 01/25/20 25 01/25/2025 CBC WITH DIFFE RENTI AL/PL ATELE T neutrophils (absolute) 3.7 x10e3 /uL 1.4-7. 0 normal Not Available [facility] ([facility]) [address] [place], [address], 01/25/2025 08:26:50 01/25/20 25 01/25/2025 CBC WITH DIFFE RENTI AL/PL ATELE T lymphs (absolute) 2.2 x10e3 /uL 0.7-3. 1 normal Not Available [facility] ([facility]) [address] [facility], [place], [address], 01/25/2025 08:26:50 01/25/20 25 01/25/2025 CBC WITH DIFFE RENTI AL/PL ATELE T monocytes(ab solute) 0.8 x10e3 /uL 0.1-0. 9 normal Not Available [facility] ([facility]) [address] [place], [address], 01/25/2025 08:26:50 01/25/20 25 01/25/2025 CBC WITH DIFFE RENTI AL/PL ATELE T eos (absolute) 0.1 x10e3 /uL 0.0-0. 4 normal Not Available [facility] ([facility]) [address] [place], [address], 01/25/2025 08:26:50 01/25/20 25 01/25/2025 CBC WITH DIFFE RENTI AL/PL ATELE T baso (absolute) 0.0 x10e3 /uL 0.0-0. 2 normal Not Available [facility] ([facility]) [address] [facility], [place], [address], 01/25/2025 08:26:50 01/25/20 25 01/25/2025 CBC WITH DIFFE RENTI AL/PL ATELE T immature granulocytes 0 % not estab. Not Available [facility] ([facility]) [address] [place], [address], 01/25/2025 08:26:50 01/25/20 25 01/25/2025 CBC WITH DIFFE RENTI AL/PL ATELE T immature grans (abs) 0.0 x10e3 /uL 0.0-0. 1 Not Available [facility] ([facility]) [address], [place], [address], 01/25/2025 08:26:50 01/25/20 25 01/25/2025 CBC WITH DIFFE RENTI AL/PL ATELE T NRBC COLLISION TECHNICIAN Not Available [facility] ([facility]) [address], [place], [address], 01/25/2025 08:26:50 01/25/20 25 01/25/2025 CBC WITH DIFFE RENTI AL/PL ATELE T hematology comments: COLLISION TECHNICIAN Not Available [facility] ([facility]) [address], [place], [address], 01/25/2025 08:26:50 01/25/20 25 01/25/2025 COMP. METAB OLIC PANEL (14) glucose 95 mg/dL 70-99 normal Not Available [facility] ([facility]) [address], [place], [address], 01/25/2025 08:26:50 01/25/20 25 01/25/2025 COMP. METAB OLIC PANEL (14) BUN 10 mg/dL 6-24 normal Not Available [facility] ([facility]) [address] [facility], [place], [address], 01/25/2025 08:26:50 01/25/20 25 01/25/2025 COMP. METAB OLIC PANEL (14) creatinine 0.76 mg/dL 0.57-1 .00 normal Not Available [facility] ([facility]) [address] [facility] [place], [address], 01/25/2025 08:26:50 01/25/20 25 01/25/2025 COMP. METAB OLIC PANEL (14) eGFR 95 mL/mi n/1.7 3 >59 normal Not Available [facility] ([facility]) [address] [facility] [place], [address], 01/25/2025 08:26:50 01/25/20 25 01/25/2025 COMP. METAB OLIC PANEL (14) BUN/creatini ne ratio 13 9-23 normal Not Available [facility] ([facility]) [address] [facility], [place], [address], 01/25/2025 08:26:50 01/25/20 25 01/25/2025 COMP. METAB OLIC PANEL (14) sodium 137 mmol/ L 134-14 4 normal Not Available [facility] ([facility]) [address] [facility], [place], [address], 01/25/2025 08:26:50 01/25/20 25 01/25/2025 COMP. METAB OLIC PANEL (14) potassium 3.9 mmol/ L 3.5-5. 2 normal Not Available [facility] ([facility]) [address] [facility], [place], [address], 01/25/2025 08:26:50 01/25/20 25 01/25/2025 COMP. METAB OLIC PANEL (14) chloride 99 mmol/ L 96-106 normal Not Available [facility] ([facility]) [address] [place], [address], 01/25/2025 08:26:50 01/25/20 25 01/25/2025 COMP. METAB OLIC PANEL (14) carbon dioxide, total 22 mmol/ L 20-29 normal Not Available [facility] ([facility]) [address] [place], [address], 01/25/2025 08:26:50 01/25/20 25 01/25/2025 COMP. METAB OLIC PANEL (14) calcium 9.3 mg/dL 8.7-10 .2 normal Not Available [facility] ([facility]) [address] [facility], [place], [address], 01/25/2025 08:26:50 01/25/20 25 01/25/2025 COMP. METAB OLIC PANEL (14) protein, total 6.8 g/dL 6.0-8. 5 normal Not Available [facility] ([facility]) [address] [place], [address], 01/25/2025 08:26:50 01/25/20 25 01/25/2025 COMP. METAB OLIC PANEL (14) albumin 4.2 g/dL 3.8-4. 9 normal Not Available [facility] ([facility]) [address] [place], [address], 01/25/2025 08:26:50 01/25/20 25 01/25/2025 COMP. METAB OLIC PANEL (14) globulin, total 2.6 g/dL 1.5-4. 5 Not Available [facility] ([facility]) [address] [place], [address], 01/25/2025 08:26:50 01/25/20 25 01/25/2025 COMP. METAB OLIC PANEL (14) bilirubin, total 1.3 mg/dL 0.0-1. 2 above high normal Not Available [facility] ([facility]) [address] [place], [address], 01/25/2025 08:26:50 01/25/20 25 01/25/2025 COMP. METAB OLIC PANEL (14) alkaline phosphatase 73 IU/L 49-135 normal Not Available [facility] ([facility]) [address] [place], [address], 01/25/2025 08:26:50 01/25/20 25 01/25/2025 COMP. METAB OLIC PANEL (14) AST (SGOT) 17 IU/L 0-40 normal Not Available [facility] ([facility]) [address] [place], [address], 01/25/2025 08:26:50 01/25/20 25 01/25/2025 COMP. METAB OLIC PANEL (14) ALT (SGPT) 17 IU/L 0-32 normal Not Available [facility] ([facility]) [address] [place], [address], 01/25/2025 08:26:50 01/25/20 25 01/25/2025 LIPID PANEL cholesterol, total 205 mg/dL 100-19 9 above high normal Not Available [facility] ([facility]) [address] [place], [address], 01/25/2025 08:26:50 01/25/20 25 01/25/2025 LIPID PANEL triglyceride s 101 mg/dL 0-149 normal Not Available [facility] ([facility]) [address] [place], [address], 01/25/2025 08:26:50 01/25/20 25 01/25/2025 LIPID PANEL HDL cholesterol 54 mg/dL >39 normal Not Available [facility] ([facility]) [address] [place], [address], 01/25/2025 08:26:50 01/25/20 25 01/25/2025 LIPID PANEL VLDL cholesterol param 18 mg/dL 5-40 Not Available [facility] ([facility]) [address] [place], [address], 01/25/2025 08:26:50 01/25/20 25 01/25/2025 LIPID PANEL LDL chol calc ([facility]) 133 mg/dL 0-99 above high normal Not Available [facility] ([facility]) [address] [place], [address], 01/25/2025 08:26:50 01/25/20 25 01/25/2025 LIPID PANEL LDL calc comment: COLLISION TECHNICIAN Not Available [facility] ([facility]) [address] [place], [address], 01/25/2025 08:26:50 05/02/19 25 04/27/2024 elect rocar diogr am No observ ation record ed. BARCODE [address], [place], [address], 05/02/2024 15:13:03 05/04/19 CT, head, w/o contr ast No observ ation record ed. [email or web address] [address], [place], [address], 05/04/2024 14:19:23 05/19/19 25 05/19/2024 MRI, head, w/o contr ast No observ ation record ed. [email or web address] [facility] (Scheduling) [address], [place], [address], 05/26/2024 11:04:24 05/25/19 25 05/19/2024 MRI, head, w/o contr ast No observ ation record ed. [facility] [address], [place], [address], 05/26/2024 08:51:24 12/23/19 25 12/27/2024 elect rocar diogr am No observ ation [facility] ed. [email or web address] [address], [place], [address], 12/27/2024 13:54:52 12/24/19 25 12/22/2024 elect rocar diogr am No observ ation record ed. [address], [address], 12/23/2024 11:31:23 Result Notes None recorded. Problems Name Problem SNOMED Code Status Onset Date Resolution Date Notes Provider Name and Address Organization Details Recorded Time Exposure to SARS-CoV -2 Completed 07/03/2020 Removal Reason: Problem added by user rmarshal [email or web address] from the COVID-19 watch flag Amara villaseñor [place] - [facility] 08:23:57 Hyperten sive disorder 69388574 Active 2018 Octavia Rojo null, [place] - [facility] 9 08:51:29 Anxiety 27539735 Active 2018 Octavia Rojo [place], [place] - [facility] 9 08:51:35 Depressi ve disorder 13263851 Active 2018 Octavia Rojo null, [place] - [facility] 9 08:51:40 Inguinal lymphade nopathy 374597074 Completed 201905/29/2021 Jane Franco APRN [address], [place], [address] , [place] - [facility] 2 15:54:19 Uterine leiomyom a 01688067 Active 2019 Jane Franco APRN [address], [place], [address] , [place] - [facility] 0 12:48:28 Endometr ium thickene d 165830769 Completed 201912/25/2019 Noreen Segura MD [address], [place], [address] , [place] - [facility] 0 18:23:33 Menorrha cristóbal 890217324 Completed 201905/29/2021 Jane Franco APRN [address], [place], [address] , [place] - [facility] 3 15:27:49 Enlarged uterus 943736183 Completed 201912/25/2019 Noreen Segura MD [address], [place], [address] , [place] - [facility] 0 18:23:38 Polyp of corpus uteri 79748596 Completed 201905/29/2021 Jane Franco APRN [address], [place], [address] , [place] - [facility] 2 15:54:15 Crying associat ed with mood 505764544 Completed 202108/11/2022 Jane Franco APRN [address], [place], [address] , [place] - [facility] 3 08:25:06 Night sweats 35028771 Active 2021 Jane Franco APRN [address], [place], [address] , [place] [facility] 2 15:55:33 Body mass index 30+ - obesity 265599874 Active 2021 Jane Franco, [employer] [address], [place], [address] , [place] [facility] 2 15:55:42 Mammogra phy abnormal 914293143 Active 2022 Possible evolving focal symmetry left breast. Recommen d spot compress ion tomograp hy in the cc view, true lateral tomogram , and sonograp hic evaluati on-6 mm hypoecho ic nodule superfic ially at the 4 o'clock position of the left breast-b x schedule d 06/19/22- stromal sclerosi s and FBC; no atypia or malignan cy Jane Franco, [employer] [address], [place], [address] , [place] [facility] 3 17:01:57 Menorrha cristóbal 938762960 Active 2022 Jane Franco, [employer] [address], [place], [address] , [place] [facility] 3 15:27:49 Anemia 746904037 Active 2022 Jane FrancoBERNA [address], [place], [address] , [place] [facility] 3 15:27:53 Dysmenor tobi 331595904 Active 2022 Jane Lópezcker, [employer] [address], [place], [address] , [place] [facility] 3 15:27:55 Cough 97492526 Active 2022 Xiomara Easley PA-C [address], [place], [address] , [place] [facility] 3 11:18:54 COVID-19 817911899 Active 2024 Xiomara Easley PA-C [address], [place], [address] , [place] - [facility] 09:31:09 Problem Notes None recorded. Procedures Surgical History Date Name Laterality Status Provider Name and Address Organization Details Recorded Time 06/20/19 23 Breast Biopsy completed Jane FrancoBERNA [address], [place], [address], [place] - [facility] 06/23/2022 17:02:18 05/30/19 23 Date of Last Mammogram completed Jane ParkerABHISHEK johnN [address], [place], [address], [place] - [facility] 06/02/2022 16:41:04 05/29/19 22 Date of Last Pap Smear completed Jane FrancoBERNA [address], [place], [address], [place] - [facility] 06/03/2021 11:55:05 02/01/20 21 Date of Last Colonoscopy completed Bethany Scales [place] - [facility] 05/29/2021 09:46:27 12/08/19 20 hysteroscopy completed Amara Pderaza [place] - [facility] 12/25/2020 08:17:25 12/29/19 13 Tubal Ligation completed Amara Pedraza [place] - [facility] 12/25/2020 08:17:25 07/17/19 01 Caesarean Section completed Amara Pedraza [place] - [facility] 12/25/2020 08:17:25 Tubal Ligation completed Octavia Rojo [place] - [facility] 06/25/2018 08:55:44 section completed Octavia Grullonter [place] - [facility] 06/25/2018 08:55:53 Cholecystectomy, laparoscopic completed Octavia Grullonter [place] - [facility] 06/25/2018 08:55:58 Imaging Results None recorded. Procedure Notes None recorded. Medical Equipment None Reported. Allergies Allergen ID Allergen Name Allergen Category Reaction Reaction Severity Criticality Documentation Date Start Date Code Code System Note Provider Name and Address Organization Details Recorded Time 456854 doxycycli ne Not available rash Not available Not available 11/18/2022 3640 RxNorm Jeffrey villaseñor [place] - [facility] 3 14:19:58 94200 amoxicill in trihydrat e medicatio n hives Not available Not available 01/11/20162007 82151 8 RxNorm React ion: Hives ; Comme nt: amoxi cilli n; Not Available [facility] 6 09:16:35 Medications Name Sig Start Date Stop Date Status Note LastModified by Organization Details LastModified Time Synalar 0.025 % topical ointment apply to affected area(s) by topical route 2 times per day x one week 11/09 completed Synalar 0.025 % topical ointment ;Recorde d Status: Recorded on: 09/22/19 09 12:04PM; Disconti nued Status: Disconti nued on: 11/10/19 10 11:03AM; User: [email or web address];Karen rinted: 09/22/19 09 Not Available Not Available [...] Disconti nued on: 12/17/19 13 10:46AM; User: [email or web address];P rinted: 12/01/19 13 Not Available Not Available [...] Disconti nued on: 05/27/19 14 1:23PM;U ser: [email or web address]; Printed: 04/22/19 14 Not Available Not Available [...] 2:33PM;U ser: [email or web address];In dication : Anxiety - () Not Available Not Available Not Available doxycycli [...] ser: [email or web address];I ndicatio n: Hyperten mook - () Not Available Not Available Not Available hydrochlo [...] Disconti nued on: 11/10/19 10 11:03AM; User: [email or web address] Not Available Not Available Not Available methylpre [...] Disconti nued on: 11/16/19 13 3:17PM;U ser: Mame grewal Completi on: 11/11/19 13;Print ed: 07/14/19 [...] Disconti nued on: 12/17/19 13 10:46AM; User: Mame grewal Completi on: 12/08/19 13;Print ed: 12/01/19 [...] Prescrib ed on: 07/05/19 16 1:30PM;U ser: [email or web address]; Est. Completi on: 11/02/19 16;Pharm acyVerif ied: 07/05/19 16 1:30PM Not Available Not [...] Disconti nued on: 05/17/19 13 11:16AM; User: [email or web address];E st. Completi on: 06/24/19 13;Print ed: 12/10/19 12 Not Available Not Available Not Available Pristiq 50 mg tablet,ex tended release take 1 tablet (50 mg) by oral route once daily for 30 days 08/10 completed Pristiq 50 mg oral tablet extended release 24 hr;Recor ded Status: Recorded on: 09/08/19 14 3:44PM;D iscontin ued Status: Discguillei nued on: 08/11/19 15 9:17AM;U ser: grant;E st. Completi on: 09/03/19 15;Print ed: 09/08/19 14 Not Available Not Available Not Available Paxlovid 300 mg (150 mg x 2)-100 mg tablets in a dose pack Take 1 dose pk by oral route as directed . 07/18 completed Not Available Not Available Not Available Vitals Date Recorded Body height Respiratory rate Heart rate Oxygen saturation Oxygen saturation in Arterial blood by Pulse oximetry Pain severity - 0-10 verbal numeric rating [Score] - Reported Body temperature Systolic And Diastolic Provider Name and Address Organization Details Last Updated DateTime 5 167.64 cm 14 /min 87 /min 98 % 98 % 0 98.6 [degF] 144/82 mm[Hg] Jenny Schwartz [place] - [facility] 5 09:04:21 Date Recorded Body height Respiratory rate Pain severity - 0-10 verbal numeric rating [Score] - Reported Body temperature Oxygen saturation Oxygen saturation in Arterial blood by Pulse oximetry Heart rate Systolic And Diastolic Provider Name and Address Organization Details Last Updated DateTime 5 167.64 cm 14 /min 0 98.5 [degF] 98 % 98 % 75 /min 125/70 mm[Hg] Kari Mancini [place] - [facility] 5 09:13:04 Date Recorded Body height Respiratory rate Pain severity - 0-10 verbal numeric rating [Score] - Reported Body temperature Heart rate Oxygen saturation Oxygen saturation in Arterial blood by Pulse oximetry Systolic And Diastolic Provider Name and Address Organization Details Last Updated DateTime 5 167.64 cm 14 /min 0 99.1 [degF] 81 /min 96 % 96 % 144/86 mm[Hg] Kari Mancini [place] - [facility] 5 14:47:42 Date Recorded Body height Respiratory rate Pain severity - 0-10 verbal numeric rating [Score] - Reported Body temperature Heart rate Oxygen saturation Oxygen saturation in Arterial blood by Pulse oximetry Systolic And Diastolic Provider Name and Address Organization Details Last Updated DateTime 5 167.64 cm 14 /min 0 99.2 [degF] 82 /min 99 % 99 % 152/94 mm[Hg] Kari Mancini [facility] 5 14:09:37 Date Recorded Body height Respiratory rate Pain severity - 0-10 verbal numeric rating [Score] - Reported Body mass index (BMI) Body weight Body temperature Heart rate Oxygen saturation Oxygen saturation in Arterial blood by Pulse oximetry Systolic And Diastolic Provider Name and Address Organization Details Last Updated DateTime 5 167.64 cm 14 /min 0 29.9 kg/m2 38589.6 9 g 98.2 [degF] 80 /min 98 % 98 % 130/72 mm[Hg] Kari Mancini [facility] 5 10:02:51 Social History Question Answer Notes LastModified by Organizat ion Details LastModified Time Tobacco Smoking Status [facility] 08:54:17 Do You Have An Advance Directive? Yes Information not available 06/25/2018 How Many Years Have You Consumed Alcohol? 25 [email or web address] Information not available 12/25/2020 Are You Blind Or Do You Have Difficulty Seeing? No [email or web address] Information not available 06/19/2022 Is Blood Transfusion [...] Or The Highest Degree You Have Received? [id number] [email or web address] Information not available 12/25/2020 Have There Been Any Changes To Your Family Or Social Situation? No Information no t available 08/08/2022 What Is The Fluoride Status Of Your Home? Fluoridated Information not available 08/08/2022 Have You Recently Or Are You Planning To Travel To An Area With Zika Virus? No Information not available 08/08/2022 Live Alone Or With Others? With Others [email or web address] Information not available 06/19/2022 Last Menstrual Period? 07/27/2022 Information not available 08/08/2022 Do You Have A Medical Power Of Media Associate? No Information not available 08/08/2022 What Was The Date Of Your Most Recent Tobacco Screening? 01/24/2025 [email or web address] Information not available 01/24/2025 How Many Children Do You Have? 3 Information not available 06/25/2018 Performs Monthly Self-breast Exam? No [email or web address] Information no t available 06/19/2022 Do You Use Protection During Sex? Always Information not available 08/08/2022 Do You Use Protection Against STDs? No [email or web address] Information not available 06/19/2022 What Is Your Relationship Status? Information not available 06/25/2018 Do You Use Your Seat Belt Or Car Seat Routinely? Yes [email or web address] Information not available 12/25/2020 Seat Belts Used Routinely Yes [email or web address] Information not available 06/19/2022 Are You Sexually Active? Yes [email or web address] Information not available 02/15/2021 Do You Have Smoke And Carbon Monoxide Detectors In Your Home? Yes [email or web address] Information not available 12/25/2020 Are You Passively Exposed To Smoke? No [email or web address] Information no t available 12/25/2020 How Much Tobacco Do You Smoke? No [email or web address] Information not available 06/19/2022 Do You Use Sunscreen Routinely? Yes Information not available 06/25/2018 Has Tobacco Cessation Counseling Been Provided? No Information not available 08/08/2022 Do You Have Difficulty Walking Or Climbing Stairs? No [email or web address] Information not available 06/19/2022 What Contraceptive Method [...] Functional Status Question Answer Note LastModified by [employer] ion Details LastModified Time How many times per week do you consume alcohol? 5-7 times per week Information not available 08/08/2022 Do you or have you ever used smokeless tobacco? Never used smokeless tobacco [email or web address] Information not available 07/18/2019 Are you currently employed? Yes [email or web address] Information not available 12/25/2020 Do you have transportation difficulties? No Information not available 08/08/2022 Urinary incontinence assessment performed? No [email or web address] Information not available 06/19/2022 Are you able to care for yourself independently? Yes [email or web address] Information not available 12/25/2020 Do you have difficulty dressing, bathing, grooming, or toileting? No [email or web address] Information not available 06/19/2022 Do you or have you ever used e-cigarettes or vape? Never used electronic cigarettes [email or web address] Information not available 07/18/2019 What is your exercise level? Occasional Information not available 06/25/2018 Do you use any illicit or recreational drugs? No Information not available 08/08/2022 Do you or have you ever used any other forms of tobacco or nicotine? No Information not available 08/08/2022 What is your level of alcohol consumption? Moderate [email or web address] Information not available 12/25/2020 What is your status? Not Information no t available 08/08/2022 Are you able to walk independently without assistance or assistive devices? [email or web address] Information not available 06/19/2022 Do you have difficulty doing errands alone? No [email or web address] Information not available 06/19/2022 What is your occupation? [employer] Information not available 06/25/2018 Mental Status Question Answer Note LastModified by Organizat ion Details LastModified Time Do you feel stressed (tense, restless, nervous, or anxious, or unable to sleep at night)? [id number] [email or web address] Information not available 12/25/2020 Do you have difficulty concentrating, remembering or making decisions? No Information no t available 06/19/2022 Family History Relationship Description Onset Age of this Age Resolved Age Notes LastModified by Organization Details LastModified Time Maternal Grandmother Cerebrovascu lar accident ntarter Not available 08:53:33 Maternal Grandmother Hypertensive disorder ntarter Not available 2018 08:53:59 Brother Diabetes mellitus [email or web address] Not available 09:09:30 Maternal Grandfather Hypertensive disorder [email or web address] Not available 12/06 08:17:03 Mother Hypertensive disorder ntarter Not available 2018 08:53:59 Mother Disorder of thyroid gland ntarter Not available 2018 08:54:10 Mother Heart disease 16 [email or web address] Not available 12/06 08:17:03 Mother Arthritis [email or web address] Not avail able 12/25/2020 08:17:03 Father Hypercholest erolemia [email or web address] Not available 12/06 08:17:03 Father Hypertensive disorder [email or web address] Not available 12/06 08:17:03 Maternal Uncle Diabetes mellitus [email or web address] Not available 09:09:30 Medical History Condition Response Allergies/Hayfever Y Depression Y ADD/ADHD N Anxiety Disorder Y AIDS/HIV N Acid Reflux (GERD) Y Hypertension Y Gynecological History Statement/Question Response Abnormal Pap [...] preservative 07/18/19 20 cancelled patient objection Jane Franco, BERNA [address], [place], [address], [place] [facility] 07/18/2019 16:43:45 Influenza, split virus, quadrivalent, PF 12/26/19 21 completed Amara villaseñor, [place] - [facility] 01/08/2021 13:40:47 COVID-19, mRNA, LNP-S, PF, 100 mcg/0.5mL dose or 50 mcg/0.25mL dose 04/19/19 22 completed Davonte Smith PA-C [address], [place], [address], [place] [facility] 04/19/2021 11:19:06 Tdap 06/25/19 22 completed Amara Pedraza null, [place] - [facility] 06/24/2021 09:29:49 Influenza, split virus, quadrivalent, PF 01/13/20 23 completed Davonte Smith PA-C [address], [place], [address], [place] [facility] 01/12/2023 15:32:57 Influenza, split virus, trivalent, preservative 01/25/20 24 completed Xiomara Spivey PA-C [address], [place], [address], [place] [facility] 01/25/2024 15:25:34 COVID-19, mRNA, LNP-S, PF, 100 mcg/0.5mL dose or 50 mcg/0.25mL dose 06/13/19 21 completed Tiffanie villaseñor, [place] - [facility] 08/08/2022 14:58:26 COVID-19, mRNA, LNP-S, PF, 100 mcg/0.5mL dose or 50 mcg/0.25mL dose 07/11/19 21 completed Tiffanie villaseñor, [place] - [facility] 08/08/2022 14:58:26 Past Encounters Encounter ID Performer Location Encounter Start Date Encounter Closed Date Diagnosis/Indication Diagnosis SNOMED-CT Code Diagnosis ICD10 Code Diagnosis IMO Codes Diagnosis Note [id number] [facility] [address] [place] [address] 08/10/2014 00:00:00 [id number] [facility] [address] [place] [address] 06/22/2015 00:00:00 [id number] [facility] [address] [place] [address] 07/09/2015 00:00:00 [id number] [facility] [address] [place] [address] 08/13/2015 00:00:00 [id number] [facility] [address] [place] [address] 11/03/2005 00:00:00 [id number] [facility] [address] [place] [address] 11/06/2006 00:00:00 [id number] [facility] [address] [place] [address] 05/04/2007 00:00:00 [id number] [facility] [address] [place] [address] 09/21/2008 00:00:00 [id number] [facility] [address] [place] [address] 11/09/2009 00:00:00 [id number] [facility] [address] [place] [address] 01/21/2010 00:00:00 [id number] [facility] [address] [place] [address] 02/08/2010 00:00:00 [id number] [facility] [address] [place] [address] 04/22/2010 00:00:00 [id number] [facility] [address] [place] [address] 12/02/2010 00:00:00 [id number] [facility] [address] [place] [address] 12/10/2011 00:00:00 [id number] [facility] [address] [place] [address] 05/17/2012 00:00:00 [id number] [facility] [address] [place] [address] 06/15/2012 00:00:00 [id number] [facility] [address] [place] [address] 01/13/2013 00:00:00 [id number] [facility] [address] [place] [address] 02/17/2013 00:00:00 [id number] [facility] [address] [place] [address] 04/22/2013 00:00:00 [id number] [facility] [address] [place] [address] 05/27/2013 00:00:00 [id number] [facility] [address] [place] [address] 06/22/2013 00:00:00 [id number] [facility] [address] [place] [address] 09/07/2013 00:00:00 [id number] BERNA Ureña [employer] [address] [place] [address] [place] [address] 06/25/2018 08:34:36 06/25/2018 09:36:45 Routine gynecologic examination done 0147435813 9101 Z01.419 Depression screening 171 745284 Z13.89 Hypertensi on screening 676881799 Z13.6 Screening for malignant neoplasm of cervix 777482818 Z12.4 Diet education 95769824 Z71.3 Encourage healthy eating/dec reased fats, sugars, fried foods Counseling 936912624 Z71 .82 Encouraged regular exercise 30-40min/d ay 4-5 days/wk Body mass index 25-29 - overweight 332562628 Z68.28 Hypertensive disorder 38 839744 I10 [id number] BERNA Ureña [employer] [address] [place] [address] [place] [address] 02/04/2019 13:56:30 02/04/2019 14:26:48 Cyst of right ovary 0498298015 4636929 N83.726 [id number] BERNA Ureña [employer] [address] [place] [address] [place] [address] 02/07/2019 10:59:15 02/07/2019 11:25:32 Cyst of right ovary 0682545958 3317364 N83.423 [id number] BERNA Ureña [employer] [address] [place] [address] [place] [address] 07/18/2019 14:51:50 07/18/2019 16:22:47 Routine gynecologic examination done 9376085211 9101 Z01.419 Depression screening 171 005320 Z13.89 Diet education 90912909 Z71.3 Encourage healthy eating/dec reased fats, sugars, fried foods Counseling 524608061 Z71 .82 Encouraged regular exercise 30-40min/d ay 4-5 days/wk Administra tion of influenza vaccine 31338486 Z23 Examinatio n of blood pressure 008170774 Z01.30 Body mass index 25-29 - overweight 493892090 Z68.28 Hypertensive disorder 38 997926 I10 Depressive disorder 3548 9007 F32.9 Screening for malignant neoplasm of breast 291229622 Z12.39 Menorrhagia 535063126 N9 2.0 [id number] BERNA Ureña [employer] [address] [place] [address] [place] [address] 11/23/2019 14:08:12 11/23/2019 15:04:20 Inguinal lymphadenopathy 225081330 R59.0 [id number] BERNA Ureña [employer] [address] [place] [address] [place] [address] 11/25/2019 09:46:19 11/25/2019 10:14:01 Inguinal lymphadenopathy 371340819 R59.0 Uterine leiomyoma 950661 05 D25.9 Endometrium thickened 44 8226638 R93.89 Enlarged uterus 01669908 4 N85.2 [id number] MD Gloria Carias [employer] [address] [place] [address] [place] [address] 12/06/2019 14:55:58 12/06/2019 16:00:02 Pre-surgery evaluation 536871544 Z01.818 Abnormal u terine bleeding 2983573639 9100 N93.9 Inguinal lymphadenopathy 500881905 R59.0 Uterine leiomyoma 239591 05 D25.9 [id number] MD Gloria Carias [employer] [address] [place] [address] [place] [address] 12/23/2019 13:20:35 12/23/2019 13:42:19 Postoperative visit 299900905 Z09 Abnormal u terine bleeding 9094649263 9100 N93.9 Polyp of corpus uteri 11 661265 N84.0 Uterine leiomyoma 186398 05 D25.9 [id number] ALISON Augustin [facility] [address] [place] [address] 07/03/2020 08:23:20 07/03/2020 09:08:35 Headache 81792421 R51.9 went over to push fluids. tylenol, Ibuprofen. Went over to hold Ibuprofen. Acute sinusitis 87828736 J01.90 Long-term current use of drug therapy 600941695 Z79.094 [id number] Davonte Smith PA-C [address] [address] 12/05/2020 13:31:08 12/05/2020 14:13:52 Congestion of nasal sinus 06708657 R09.81 -new Pain in throat 263068655 R07.0 -new [id number] Xiomara Spivey PA-C [address] [address] 12/25/2020 08:16:04 12/25/2020 08:52:12 Depressive disorder 34589836 F32.9 stable. Anxiety 36272575 F41.9 stable Hypertensive disorder 38 703008 I10 stable Screening mammography 24 860902 Z12.31 pt had at [facility] . last was normal per pt was with in the year. Screening for malignant neoplasm of colon 189823257 Z12.11 pt will do cologuard. Administra tion of influenza vaccine 19341144 Z23 Taking med ication for chronic disease 2721734686 80705 Z79.899 Fatigue 32542965 R53.83 Vitamin D deficiency 347 25991 E55.9 last level was 39 in old system. PT takes OTC Vit D. [id number] Xiomara Spivey PA-C [address] [address] 02/15/2021 09:02:51 02/15/2021 09:47:28 Cough 76557016 R05.9 pt did not want chest xray Dyspnea 203222956 R06.00 push fluids, steam will help. gave inhaler. Acute sinusitis 13684737 J01.90 Long-term drug therapy 473820466 Z79.899 chronic conditons are stable. pt did not need refills. Sinusitis 52428156 J32.9 push fluids, steam will help. [id number] Xiomara Spivey PA-C [address] [address] 03/06/2021 15:16:17 03/06/2021 15:37:22 Allergic rhinitis 73132559 J30.9 went over to take claritin. use mucinex. Acute sinusitis 17149156 J01.90 gave pred and different antibiotic . went over to eat yogurt. Pruritic rash 39811562 L 28.2 continue steroid cream. [id number] ALISON Augustin [address] [address] 04/19/2021 11:02:47 04/19/2021 11:41:53 Administration of SARS-CoV-2 antigen vaccine 579148620 Z23 [id number] BERNA Ureña [employer] [address] [facility] [place] [address] 05/29/2021 09:37:17 05/29/2021 10:53:18 Routine gynecologic examination done 0473641799 9101 Z01.419 Depression screening 171 301950 Z13.89 Screening for malignant neoplasm of cervix 626365257 Z12.4 Diet education 58129763 Z71.3 Encourage healthy eating/dec reased fats, sugars, fried foods Counseling 079718534 Z71 .82 Encouraged regular exercise 30-40min/d ay 4-5 days/wk Examinatio n of blood pressure 359899497 Z01.30 Anxiety 93287247 F41.9 Hypertensive disorder 38 680749 I10 Crying ass ociated with mood 395411907 R45.89 Night sweats 58098701 R6 1 Body mass index 30+ - obesity 755370173 Z68.30 [id number] ALISON Augustin [address] [address] 06/24/2021 09:02:44 06/24/2021 09:29:31 Anxiety 11288542 F41.9 stable Body mass index 30+ - obesity 311239410 Z68.30 30.8 Depressive disorder 3548 9007 F32.9 stable. Hypertensive disorder 38 138707 I10 stable Screening mammography 24 933753 Z12.31 pt had at [facility] . we have in chart. Screening for malignant neoplasm of cervix 209006761 Z12.4 pt has done this with Jane, in chart. Screening for malignant neoplasm of colon 994988806 Z12.11 pt did cologuard in Uterine leiomyoma 684110 05 D25.9 pt sees jane. Viral screening 06995962 4 Z11.59 Taking med ication for chronic disease 4172263269 23238 Z79.899 chronic conditions are stable. gave refills. Vitamin D deficiency 347 54818 E55.9 last level was 39 in old system. PT takes OTC Vit D. Hemoglobin below reference range 164869979 D64.9 pt could not give blood. Long-term drug therapy 774177428 Z79.899 chronic conditions are stable. pt did not need refills. Administra tion of tetanus vaccine 767538091 Z23 [id number] ALISON Augustin [place] [address] 2 10/11/2021 09:05:37 10/11/2021 09:50:17 SARS-CoV-2 154204451 U07.1 went over to quarantine for full 10 days Dyspnea 319703635 R06.00 push fluids, steam will help. gave inhaler. [id number] ALISON Augustin [address] 2 10/16/2021 13:38:02 10/16/2021 14:34:12 COVID-19 716296242 U07.1 improved Dyspnea 064918102 R06.00 improving. Long-term drug therapy 634078993 Z79.899 chronic conditions are stable. pt did not need refills. [id number] ALISON Kee [address] 2 11/18/2021 08:56:52 11/18/2021 09:51:40 Viral screening 906920915 Z11.52 Cough 52906894 R05.1 -new Tachycardia 2667507 R00. 0 -new ekg revd today. Pneumonia 218122512 J18. 9 -new Chest pain 65214220 R07. 9 [id number] Davonte Smith PA-C [place] [address] 11/21/2021 11:36:56 11/21/2021 11:57:08 Headache 47084438 R51.9 -stable Chest pain 00913749 R07. 9 -improving Cough 58552025 R05.1 -improving [id number] Davonte Smith PA-C [facility] [address] [place] [address] 12/24/2021 09:05:42 12/24/2021 09:51:07 Hypertensive disorder 67852839 I10 -stable Anxiety 86445131 F41.9 -stable Heartburn 19484397 R12 -new Long-term drug therapy 638922737 Z79.365 [id number] Jane Franco APRN [place] [employer] [address] [facility] [place] [address] 08/08/2022 14:53:38 08/08/2022 15:35:17 Routine gynecologic examination done 9880607633 9101 Z01.419 Depression screening 171 057955 Z13.89 Diet education 07185970 Z71.3 Encourage healthy eating/yu it fats, sugars, fried foods Counseling 065168105 Z71 .82 Encouraged regular exercise 30-40min/d ay 4-5 days/wk Examinatio n of blood pressure 566051467 Z01.30 Body mass index 30+ - obesity 114893466 Z68.30 Obesity 647063917 E66.9 Hypertensive disorder 38 827964 I10 Menorrhagia 249586446 N9 2.0 Uterine leiomyoma 406844 05 D25.9 Anemia 697035044 D64.9 Dysmenorrhea 786388743 N 94.6 [id number] Davonte Smith PA-C [place] [facility] [address] [place] [address] 06/19/2022 09:06:04 06/19/2022 09:35:59 Hypertensive disorder 07132037 I10 -stable Anxiety 44108347 F41.9 -stable General ex amination of patient 106025480 Z00.00 Screening for cardiovascular system disease 692989728 Z13.6 Exercises education, guidance, and counseling 119365443 Z71.82 The patient was advised to continue a healthy diet and exercise regularly. Dietary ma nagement surveillance 524114849 Z71.3 Acute sinusitis 17140814 J01.90 Long-term drug therapy 361355542 Z79.419 [id number] Noreen Segura MD [place] [employer] [address] [facility] [place] [address] 08/29/2022 15:53:19 08/29/2022 16:56:43 Menorrhagia 257788824 N92.0 Anemia 681551098 D64.9 Uterine leiomyoma 782928 05 D25.9 [id number] Xiomara Easley PA-C [address] [address] 11/10/2022 10:41:16 11/10/2022 11:23:21 Cough 60448168 R05.9 worsening [id number] Davonte Smith PA-C [address] [address] 12/18/2022 08:54:02 12/18/2022 09:30:32 Hypertensive disorder 82785741 I10 -stable Depressive disorder 3548 9007 F32.9 -stable Anxiety 42150289 F41.9 -stable Body mass index 30+ - obesity 837814868 Z68.30 Obesity 875304039 E66.9 Long-term drug therapy 104020573 Z79.714 [id number] Davonte Smith PA-C [address] [address] 01/12/2023 15:16:14 01/12/2023 16:08:23 Influenza vaccine needed 2629324122 106 Z23 [id number] Davonte Smith PA-C [address] [address] 06/18/2023 08:37:44 06/18/2023 09:19:26 Hypertensive disorder 86716320 I10 -stable Long-term drug therapy 098150384 Z79.899 Anemia 284658477 D64.9 -stable Anxiety 59936829 F41.9 -stable [id number] Davonte Smith PA-C [place] [address] 12/15/2023 08:10:48 12/15/2023 09:04:03 Hypertensive disorder 31724927 I10 -stable Anxiety 05302242 F41.9 -stable Long-term drug therapy 576166082 Z79.899 Fatigue 94102103 R53.83 [id number] Xiomara Spivey PA-C [place] [address] 01/25/2024 11:53:02 01/25/2024 12:06:22 Influenza vaccine needed 3421589246 106 Z23 [id number] Davonte Smith PA-C [place] [address] 03/16/2024 11:32:29 03/16/2024 11:44:18 Lesion of skin of face 9866763568 06 L98.9 -new [id number] Davonte Smith PA-C [address] 2 04/27/2024 10:17:21 04/27/2024 11:09:19 Essential hypertension 03413084 I10 Dizziness 253919130 R42 Horizontal nystagmus 817 24012 H55.09 [id number] Davonte Smith PA-C [place] [address] 05/04/2024 10:43:17 05/04/2024 11:26:21 Headache 02488956 R51.9 -stable Acute sinusitis 12468776 J01.90 Essential hypertension 51033605 I10 -improving [id number] Xiomara Easley PA-C [address] [address] 06/01/2024 08:39:36 06/01/2024 09:30:54 Cough 91637770 R05.9 worsening COVID-19 001482492 U07.1 -[facility] sed supportive care, encouraged oral fluids to maintain hydration, acetaminop hen or ibuprofen per OTC label instructio ns for pain/fever . [id number] ALISON Kee [address] [address] 07/18/2024 09:01:20 07/18/2024 09:46:45 Long-term drug therapy 197522558 Z79.899 Essential hypertension 20855472 I10 -stable Anxiety 42886848 F41.9 -stable [id number] ALISON Kee [address] [address] 12/06/2024 14:41:29 12/06/2024 14:55:29 Cellulitis of face 437981963 J34.0 28750 Eruption o f skin of face 0118609724 R21 41549383 [id number] aDvonte Smith PA-C [place] [address] [address] 12/22/2024 14:03:57 12/22/2024 14:41:52 Chest discomfort 070019838 R07.89 23462 -new Essential hypertension 37340681 I10 95250 -sub optimal control [id number] Davonte Smith PA-C [address] [address] 01/24/2025 09:55:47 01/24/2025 10:33:19 Anxiety 34870025 F41.9 -stable Hypertensive disorder 38 239749 I10 -stable Long-term drug therapy 206113807 Z79.899 Health Concerns Section Related Observation LastModified by Organization Detai ls LastModified Time None Recorded Concern Status LastModified by Organization Details LastModified Time None Recorded Advance Directives Directive Y: Payers Insurance Date Sequence Insurance Name Policy Number Policy Sorenson Covered Member ID Sorenson Member ID Guarantor Name 01/30/2025 1 [place] [id number] 1 Tiara Guerra [id number] Tiara Guerra Notes Date Note Type Note Provider Name and Address Organization Details Recorded Time 06/01/2024 text/html ROS as noted in the HPI pt presents to the office for shortness of breathe. pt states she has been coughing, congestion, and headachesPt reports not feeling wellShe will cough so much she has a hard time getting her breathsymptoms started Thursdaydenies fever, body aches.She reports the soa when coughing or going up and down stairs. It is both productive and dry cough. Pt has tried claritin, mucinex, and she tried left over prednisone. It didn't help much. Pt denies n/v/d, chest pain, trouble swallowing, or trouble going to the bathroom. Xiomara Easley PA-C [address], [place], [address], [facility] 06/01/2024 09:31:13 07/18/2024 text/html Hypertension F/UReported by PatientHPIFor medications, patient reportstaking medications as directedandno side effects from medication. For lifestyle, patient reportsregular exercise,limiting/oni iding salt, andcompliant with low salt diet. For associated symptoms, patient reportsno dizziness,no lightheadedness,no chest pain,no shortness of breath,no palpitations,no edema,no calf pain with exertion, andno headache. Generalized Anxiety DisorderReported by PatientHPIFor associated symptoms, patient reportsno difficulty concentrating,no difficulty controlling worry,no difficulty swallowing,no anxiety,no excessive sweating,no hot flashes,no palpitations,no shortness of breath,no nausea,no diarrhea,no fatigue,no irritability,no muscle tension,no muscle aches,no trembling,no twitching,no headaches,no restlessness, andno sleep disturbances. Chronic medication use, meds reviewed with patient. Compliance is good. Patient reports no side effects. Davonte Smith PA-C [address], [place], [address], [facility] 07/18/2024 09:27:41 12/06/2024 text/html PT noticed a rash on her face that started Thursday AM, on upper lip but has spread up to nose and on face. No itching or burning of rash. No changes with water. Davonte Smith PA-C [address], [place], [address], [facility] 12/06/2024 14:54:08 12/22/2024 text/html PT had some twinges in [...] ekg. Davonte Smith PA-C [address], [place], [address], [facility] 12/22/2024 14:42:08 01/24/2025 text/html Hypertension F/UReported by PatientHPIFor medications, patient reportstaking medications as directedandno side effects from medication. For lifestyle, patient reportsregular exercise,limiting/oni iding salt, andcompliant with low salt diet. For associated symptoms, patient reportsno dizziness,no lightheadedness,no chest pain,no shortness of breath,no palpitations,no edema,no calf pain with exertion, andno headache. Generalized Anxiety DisorderReported by PatientHPIFor associated symptoms, patient reportsno difficulty concentrating,no difficulty controlling worry,no difficulty swallowing,no anxiety,no excessive sweating,no hot flashes,no palpitations,no shortness of breath,no nausea,no diarrhea,no fatigue,no irritability,no muscle tension,no muscle aches,no trembling,no twitching,no headaches,no restlessness, andno sleep disturbances. Chronic medication use, meds reviewed with patient. Compliance is good. Patient reports no side effects. Davonte Smith PA-C [address], [place], [address], [facility] 01/24/2025 10:17:09 OBGyn Episode No OBEpisode recorded.
--- OUTSIDE RECORDS SUMMARY | 2025-01-31 11:24 | XMS_ITS | Continuity of Care Document ---
Author Organization [facility] Address [address] [place] [address] Assessment No assessment recorded. Plan of Treatment Reminders Order Date Submit Date Provider Last Modified By Organization Details Last Modified Time Details Appointments Follow Up 2025 08:40A Sabrina Smith PA-C Not available Not available Not available Lab None recorded. Referral None recorded. Procedures None recorded. Surgeries None recorded. Imaging None recorded. Medication Orders Valtrex 1 gram tablet 2024 025 [place] [employer], [address] [place] [address] [place], [phone], 12/20/2024 05:01:55 clindamyc in HCl 300 mg capsule 2024 025 [place] [facility], [address] [place] [address] [place], [place], [phone], 12/20/2024 05:01:55 Patient TargetsNo targets recorded. Patient Instructions Encounter Date Encounter Id Patient Instructions Last Modified By Organization Details Last Modified Time 12/06/2024 [id number] CALL W CHANGES RTC OR ED IF SYMPTOMS CHANGE OR WORSEN KEEP NEXT INTERVAL CHECKUP CONT CHRONIC MEDS PERSCRIBED CHRONIC ISSUES ARE STABLE DISCUSSED NATURAL AND EXPECTED COURSE OF THIS DIAGNOSIS AND NEED TO ALERT ME IF SYMPTOMS DO NOT FOLLOW EXPECTED COURSE, OR IF ANY WORSEN aappelman Not available 12/06/2024 14:53:57 Reason for Referral None Reported. Results Created Date Observation Date Name Description Value Unit Range Abnormal Flag Note LastModifiedBy Organization Detail LastModifiedTime 12/23/1912/27/2024 elect jessy coughlin am No observ ation record ed. [facility] [address], [place], [address], 12/27/2024 13:54:52 12/24/19 25 12/22/2024 elect jessy coughlin am No observ ation record ed. JENNY[facility] [address], [place], [address], 12/23/2024 11:31:23 Result Notes None recorded. Problems Name Problem SNOMED Code Status Onset Date Resolution Date Notes Provider Name and Address Organization Details Recorded Time Exposure to SARS-CoV -2 Completed 07/03/2020 Removal Reason: Problem added by user kayla [email or web address] from the COVID-19 watch flag Amara Milo null, [place] - [facility] 1 08:23:57 Hyperten sive disorder 29856060 Active 2018 Octavia Rojo null, [place] - [facility] 9 08:51:29 Anxiety 15636320 Active 2018 Octavia Alia null[place] - [facility] 9 08:51:35 Depressi ve disorder 55505655 Active 2018 Octavia Rojo null[place] [facility] 9 08:51:40 Inguinal lymphade nopathy 541771264 Completed 201905/29/2021 Jane Franco APRN [address], [place], [address] , [place] - [facility] 2 15:54:19 Uterine leiomyom a 41223957 Active 2019 Jane Franco APRN [address], [place], [address] , [place] - [facility] 0 12:48:28 Endometr ium thickene d 778402787 Completed 201912/25/2019 Noreen Segura MD [address], [place], [address] , [place] - [facility] 0 18:23:33 Menorrha cristóbal 456600206 Completed 201905/29/2021 Jane Franco APRN [address], [place], [address] , [place] [facility] 3 15:27:49 Enlarged uterus 255784927 Completed 201912/25/2019 Noreen Segura MD [address], [place], [address] , [place] [facility] 0 18:23:38 Polyp of corpus uteri 97109863 Completed 201905/29/2021 Jane Franco APRN [address], [place], [address] , [place] [facility] 2 15:54:15 Crying associat ed with mood 820540480 Completed 202108/11/2022 Jane Franco APRN [address], [place], [address] , [place] [facility] 3 08:25:06 Night sweats 88824825 Active 2021 Jane Franco APRN [address], [place], [address] , [place] [facility] 2 15:55:33 Body mass index 30+ - obesity 967736784 Active 2021 Jane Franco APRN [address], [place], [address] , [place] [facility] 2 15:55:42 Mammogra phy abnormal 837204180 Active 2022 Possible evolving focal symmetry left breast. Recommen d spot compress ion tomograp hy in the cc view, true lateral tomogram , and sonograp hic evaluati on-6 mm hypoecho ic nodule superfic ially at the 4 o'clock position of the left breast-b x schedule d 06/19/22- stromal sclerosi s and FBC; no atypia or malignan cy Jane Franco APRN [address], [place], [address] , [place] [facility] 3 17:01:57 Menorrha cristóbal 889419865 Active 2022 Jane Franco APRN [address], [place], [address] , [place] [facility] 3 15:27:49 Anemia 329498195 Active 2022 Jane Franco [employer] [address], [place], [address] , [place] [facility] 3 15:27:53 Dysmenor tobi 441028153 Active 2022 Jane Salvador BERNA [address], [place], [address] , [place] [facility] 3 15:27:55 Cough 87034267 Active 2022 Xiomara Ealsey PA-C [address], [place], [address] , [place] [facility] 3 11:18:54 COVID-19 306742308 Active 2024 Xiomara Easley PA-C [address], [place], [address] , [place] [facility] 5 09:31:09 Problem Notes None recorded. Procedures Surgical History Date Name Laterality Status Provider Name and Address Organization Details Recorded Time 06/20/19 23 Breast Biopsy completed Jane Franco APRN [address], [place], [address], [place] [facility] 06/23/2022 17:02:18 05/30/19 23 Date of Last Mammogram completed Jane Franco APRN [address], [place], [address], [place] [facility] 06/02/2022 16:41:04 05/29/19 22 Date of Last Pap Smear completed Jane Franco APRN [address], [place], [address], [place] [facility] 06/03/2021 11:55:05 02/01/20 21 Date of Last Colonoscopy completed Bethany Scales [place] - [facility] 05/29/2021 09:46:27 12/08/19 20 hysteroscopy completed Amara Pedraza [place] - [facility] 12/25/2020 08:17:25 12/29/19 13 Tubal Ligation completed Amara MAGUIRE - [facility] 12/25/2020 08:17:25 07/17/19 01 Caesarean Section completed Amara MAGUIRE - [facility] 12/25/2020 08:17:25 Tubal Ligation completed Octavia MAGUIRE - [facility] 06/25/2018 08:55:44 section completed Octavia MAGUIRE - [facility] 06/25/2018 08:55:53 Cholecystectomy, laparoscopic completed Octavia MAGUIRE - [facility] 06/25/2018 08:55:58 Imaging Results None recorded. Procedure Notes None recorded. Medical Equipment None Reported. Allergies Allergen ID Allergen Name Allergen Category Reaction Reaction Severity Criticality Documentation Date Start Date Code Code System Note Provider Name and Address Organization Details Recorded Time 209626 doxycycli ne Not available rash Not available Not available 11/18/2022 3640 RxNorm [facility] 3 14:19:58 37676 amoxicill in trihydrat e medicatio n hives Not available Not available 01/11/20162007 73155 8 RxNorm React ion: Hives ; Comme nt: amoxi cilli n; Not Available [facility] 6 09:16:35 Medications Name Sig Start Date Stop Date Status Note LastModified by Organization Details LastModified Time Synalar 0.025 % topical ointment apply to affected area(s) by topical route 2 times per day x one week 11/09 completed Synalar 0.025 % topical ointment ;Recorde d Status: Recorded on: 09/22/19 09 12:04PM; Disconti nued Status: Disconti nued on: 11/10/19 10 11:03AM; User: Xavier rinted: 09/22/19 09 Not Available Not Available Not Available fluconazo le 100 mg tablet take 1 tablet by oral route daily for 7 days 07/08 completed fluconaz ole 100 mg oral tablet;P rescribe Status: Prescrib ed on: 06/22/19 16 10:47AM; Disconti nued Status: Disconti nued on: 07/09/19 16 4:03PM;U ser: youngk;E st. Completi on: 06/29/19 16;Indic ation: Vulvovag inal Candidia sis - ();Phar Praneeth fied: 06/22/19 16 10:47AM Not Available Not [...] Disconti nued on: 12/17/19 13 10:46AM; User: santos;Karen rinted: 12/01/19 13 Not Available Not Available [...] Disconti nued on: 06/16/19 13 2:58PM;U ser: hiangiem;I ndicatio n: Hyperten mook - (4019 ) Not Available Not Available Not Available hydrochlo [...] Disconti nued on: 11/16/19 13 3:17PM;U ser: santosCharlotte grewal Completi on: 11/11/19 13;Print ed: 07/14/19 [...] Disconti nued on: 12/17/19 13 10:46AM; User: [email or web address] grewal Completsavage on: 12/08/19 13;Print ed: 12/01/19 13 Not [...] Prescrib ed on: 07/05/19 16 1:30PM;U ser: andru; EstLorin Completsavage on: 11/02/19 16;Pharm acyVerif ied: 07/05/19 16 [...] nued on: 05/17/19 13 11:16AM; User: santos;Lucila holloway. Completi on: 06/24/19 13;Print ed: 12/10/19 12 Not Available Not Available Not Available Pristiq 50 mg tablet,ex tended release take 1 tablet (50 mg) by oral route once daily for 30 days 08/10 completed Pristiq 50 mg oral tablet extended release 24 hr;Recor ded Status: Recorded on: 09/08/19 14 3:44PM;D iscontin ued Status: Disconti nued on: 08/11/19 15 9:17AM;U ser: santos;Lucila st. Completi on: 09/03/19 15;Print ed: 09/08/19 [...] 96 % 96 % 144/86 mm[Hg] Kari Mancnii [place] - [facility] 5 14:47:42 Social History Question Answer Notes LastModified by Organizat ion Details LastModified Time Tobacco Smoking Status Never Smoker Octavia Rojo null, [place] - [facility] 06/25/2018 08:54:17 Do You Have An Advance Directive? Yes Information not available 06/25/2018 How Many Years Have You Consumed Alcohol? 25 [email or web address] Information not available 12/25/2020 Are You Blind Or Do You Have Difficulty Seeing? No [email or web address] Information not available 06/19/2022 Is Blood Transfusion [...] Or The Highest Degree You Have Received? UT84210-9 [email or web address] Information not available 12/25/2020 Have There Been Any Changes To Your Family Or Social Situation? No Information no t available 08/08/2022 What Is The Fluoride Status Of Your Home? Fluoridated Information not available 08/08/2022 Have You Recently Or Are You Planning To Travel To An Area With Zika Virus? No Information not available 08/08/2022 Live Alone Or With Others? With Others [email or web address] Information not available 06/19/2022 Last Menstrual Period? 07/27/2022 Information not available 08/08/2022 Do You Have A Medical Power Of Liquor Clerk? No Information not available 08/08/2022 What Was The Date Of Your Most Recent Tobacco Screening? 01/24/2025 [email or web address] Information not available 01/24/2025 How Many Children Do You Have? 3 Information not available 06/25/2018 Performs Monthly Self-breast Exam? No [email or web address] Information no t available 06/19/2022 Do You Use Protection During Sex? Always Information not available 08/08/2022 Do You Use Protection Against STDs? No [email or web address] Information not available 06/19/2022 What Is Your Relationship Status? Information not available 06/25/2018 Do You Use Your Seat Belt Or Car Seat Routinely? Yes [email or web address] Information not available 12/25/2020 Seat Belts Used Routinely Yes [email or web address] Information not available 06/19/2022 Are You Sexually Active? Yes [email or web address] Information not available 02/15/2021 Do You Have Smoke And Carbon Monoxide Detectors In Your Home? Yes [email or web address] Information not available 12/25/2020 Are You Passively Exposed To Smoke? No [email or web address] Information no t available 12/25/2020 How Much Tobacco Do You Smoke? No [email or web address] Information not available 06/19/2022 Do You Use Sunscreen Routinely? Yes Information not available 06/25/2018 Has Tobacco Cessation Counseling Been Provided? No Information not available 08/08/2022 Do You Have Difficulty Walking Or Climbing Stairs? No [email or web address] Information not available 06/19/2022 What Contraceptive Method [...] LastModified by Organizat ion Details LastModified Time How many times per week do you consume alcohol? 5-7 times per week Information not available 08/08/2022 Do you or have you ever used smokeless tobacco? Never used smokeless tobacco Information not available 07/18/2019 Are you currently employed? Yes [email or web address] Information not available 12/25/2020 Do you have transportation difficulties? No Information not available 08/08/2022 Urinary incontinence assessment performed? No [email or web address] Information not available 06/19/2022 Are you able to care for yourself independently? Yes [email or web address] Information not available 12/25/2020 Do you have difficulty dressing, bathing, grooming, or toileting? No [email or web address] Information not available 06/19/2022 Do you or [...] is your level of alcohol consumption? Moderate [email or web address] Information not available 12/25/2020 What is your status? Not Information no t available 08/08/2022 Are you able to walk independently without assistance or assistive devices? YESWOREST [email or web address] Information not available 06/19/2022 Do you have difficulty doing errands alone? No [email or web address] Information not available 06/19/2022 What is your occupation? [employer] Information not available 06/25/2018 Mental Status Question Answer Note LastModified by Organizat ion Details LastModified Time Do you feel stressed (tense, restless, nervous, or anxious, or unable to sleep at night)? [id number] [email or web address] Information not available 12/25/2020 Do you have difficulty concentrating, remembering or making decisions? No Information no t available 06/19/2022 Family History Relationship Description Onset Age of this Age Resolved Age Notes LastModified by Organization Details LastModified Time Maternal Grandmother Cerebrovascu lar accident ntarter Not available 08:53:33 Maternal Grandmother Hypertensive disorder ntarter Not available 2018 08:53:59 Brother Diabetes mellitus [email or web address] Not available 09:09:30 Maternal Grandfather Hypertensive disorder [email or web address] Not available 12/06 08:17:03 Mother Hypertensive disorder ntarter Not available 2018 08:53:59 Mother Disorder of thyroid gland ntarter Not available 2018 08:54:10 Mother Heart disease 16 [email or web address] Not available 12/06 08:17:03 Mother Arthritis [email or web address] Not avail able 12/25/2020 08:17:03 Father Hypercholest erolemia Not available 12/06 08:17:03 Father Hypertensive disorder [email or web address] Not available 12/06 08:17:03 Maternal Uncle Diabetes mellitus [email or web address] Not available 09:09:30 Medical History Condition Response [...] cancelled patient objection Jane Franco, BERNA [address], [place], [address], [place] [facility] 07/18/2019 16:43:45 Influenza, split virus, quadrivalent, PF 12/26/19 21 completed Amara Pedraza null, [place] [facility] 01/08/2021 13:40:47 COVID-19, mRNA, LNP-S, PF, 100 mcg/0.5mL dose or 50 mcg/0.25mL dose 04/19/19 22 completed Davonte Smith PA-C [address], [place], [address], [place] [facility] 04/19/2021 11:19:06 Tdap 06/25/19 22 completed Amara Pedra[place] [facility] 06/24/2021 09:29:49 Influenza, split virus, quadrivalent, PF 01/13/20 23 completed Davonte Smith PA-C [address], [place], [address], [place] [facility] 01/12/2023 15:32:57 Influenza, split virus, trivalent, preservative 01/25/20 24 completed Xiomara Spivey PA-C [address], [place], [address], [place] [facility] 01/25/2024 15:25:34 COVID-19, mRNA, LNP-S, PF, 100 mcg/0.5mL dose or 50 mcg/0.25mL dose 06/13/19 21 completed Tiffanie Coats null, [place] [facility] 08/08/2022 14:58:26 COVID-19, mRNA, LNP-S, PF, 100 mcg/0.5mL dose or 50 mcg/0.25mL dose 07/11/19 21 completed Tiffanie Coats null, [place] [facility] 08/08/2022 14:58:26 Past Encounters Encounter ID Performer Location Encounter Start Date Encounter Closed Date Diagnosis/Indication Diagnosis SNOMED-CT Code Diagnosis ICD10 Code Diagnosis IMO Codes Diagnosis Note [id number] ALISON Kee [address] [address] 12/06/2024 14:41:29 12/06/2024 14:55:29 Cellulitis of face 814797484 J34.0 98114 Eruption o f skin of face 2836929141 R21 52178174 Health Concerns Section Related Observation LastModified by Organization Detai ls LastModified Time None Recorded Concern Status LastModified by Organization Details LastModified Time None Recorded Payers Encounter Date Sequence Insurance Name Policy Number Policy Sorenson Covered Member ID Sorenson Member ID Guarantor Name 12/06/2024 1 [employer] [id number] 1 Tiara Guerra [id number] Tiara Guerra Notes Date Note Type Note Provider Name and Address Organization Details Recorded Time 12/06/2024 text/html PT noticed a rash on her face that started Thursday AM, on upper lip but has spread up to nose and on face. No itching or burning of rash. No changes with water. Davonte Smith PA-C [facility] [address], [place], [address], [place] [facility] 12/06/2024 14:54:08 OBGyn Episode No OBEpisode recorded.
--- OUTSIDE RECORDS SUMMARY | 2025-01-31 11:24 | XMS_ITS | Continuity of Care Document ---
Author Organization [facility] Address [address] [place] [id number] Assessment No assessment recorded. Plan of Treatment Reminders Order Date Submit Date Provider Last Modified By Organization Details Last Modified Time Details Appointments Follow Up 2025 08:40A Sabrina Smith PA-C Not available Not available Not available Lab CBC w/ auto diff 2024 025 PEETZ [facility], [address], [place], [place], [address], 01/25/2025 08:26:50 lipid panel, serum 2024 025 PEETZ [facility], [address], [place] [address], [place], [address], 01/25/2025 08:26:50 CMP, serum or plasma 2024 025 JULIANNA [facility], [address], [place] [address], [place], [address], 01/25/2025 08:26:50 Referral None recorded. Procedures None recorded. Surgeries None recorded. Imaging None recorded. Medication Orders losartan 100 mg tablet 2024 025 JULIANNA Herman [facility], [address] [place] [address] [place], [place], [id number], 01/24/2025 10:35:49 amlodipin e 10 mg tablet 2024 025 PEETZ Herman [facility], [address] [place] [address] Dr, [place], [place], [id number], 01/24/2025 10:25:44 Patient TargetsNo targets recorded. Patient Instructions Encounter Date Encounter Id Patient Instructions Last Modified By Organization Details Last Modified Time 01/24/2025 [id number] CALL WITH CHANGE S RTC OR GO [...] OR IF ANY WORSEN. [email or web address] Not available 01/24/2025 10:12:32 Reason for Referral None Reported. Results Created Date Observation Date Name Description Value Unit Range Abnormal Flag Note LastModifiedBy Organization Detail LastModifiedTime 01/25/2001/25/2025 CBC WITH DIFFE RENTI AL/PL ATELE T WBC 6.8 x10e3 /uL 3.4-10 .8 normal Not Available [facility] ([facility]) [address] [place], [address], 01/25/2025 08:26:50 01/25/2001/25/2025 CBC WITH DIFFE RENTI AL/PL ATELE T RBC 4.11 x10e6 /uL 3.77-5 .28 normal Not Available [facility] ([facility]) [address] [place], [address], 01/25/2025 08:26:50 01/25/20 25 01/25/2025 CBC WITH DIFFE RENTI AL/PL ATELE T hemoglobin 13.3 g/dL 11.1-1 5.9 normal Not Available [facility] ([facility]) [address] [place], [address], 01/25/2025 08:26:50 01/25/20 25 01/25/2025 CBC WITH DIFFE RENTI AL/PL ATELE T hematocrit 40.4 % 34.0-4 6.6 normal Not Available [facility] ([facility]) [address] [facility], [place], [address], 01/25/2025 08:26:50 01/25/2001/25/2025 CBC WITH DIFFE RENTI AL/PL ATELE T MCV 98 fL 79-97 above high normal Not Available [facility] ([facility]) [address] [facility], [place], [address], 01/25/2025 08:26:50 01/25/20 25 01/25/2025 CBC WITH DIFFE RENTI AL/PL ATELE T MCH 32.4 pg 26.6-3 3.0 normal Not Available [facility] ([facility]) [address] [facility], [place], [address], 01/25/2025 08:26:50 01/25/20 25 01/25/2025 CBC WITH DIFFE RENTI AL/PL ATELE T MCHC 32.9 g/dL 31.5-3 5.7 normal Not Available [facility] ([facility]) [address] [facility], [place], [address], 01/25/2025 08:26:50 01/25/20 25 01/25/2025 CBC WITH DIFFE RENTI AL/PL ATELE T RDW 11.8 % 11.7-1 5.4 Not Available [facility] ([facility]) [address] [facility], [place], [address], 01/25/2025 08:26:50 01/25/20 25 01/25/2025 CBC WITH DIFFE RENTI AL/PL ATELE T platelets 308 x10e3 /uL 150-45 0 normal Not Available [facility] ([facility]) [address] [place], [address], 01/25/2025 08:26:50 01/25/20 25 01/25/2025 CBC WITH DIFFE RENTI AL/PL ATELE T neutrophils 55 % not estab. normal Not Available [facility] ([facility]) [address] [place], [address], 01/25/2025 08:26:50 01/25/20 25 01/25/2025 CBC WITH DIFFE RENTI AL/PL ATELE T lymphs 32 % not estab. normal Not Available [facility] ([facility]) [address] [facility], [place], [address], 01/25/2025 08:26:50 01/25/20 25 01/25/2025 CBC WITH DIFFE RENTI AL/PL ATELE T monocytes 11 % not estab. normal Not Available [facility] ([facility]) [address] [facility], [place], [address], 01/25/2025 08:26:50 01/25/2001/25/2025 CBC WITH DIFFE RENTI AL/PL ATELE T eos 1 % not estab. normal Not Available [facility] ([facility]) [address] [facility], [place], [address], 01/25/2025 08:26:50 01/25/20 25 01/25/2025 CBC WITH DIFFE RENTI AL/PL ATELE T basos 1 % not estab. normal Not Available [facility] ([facility]) [address] [facility], [place], [address], 01/25/2025 08:26:50 01/25/20 25 01/25/2025 CBC WITH DIFFE RENTI AL/PL ATELE T immature cells DOOR CAPTAIN Not Available [facility] ([facility]) [address] [facility], [place], [address], 01/25/2025 08:26:50 01/25/20 25 01/25/2025 CBC WITH DIFFE RENTI AL/PL ATELE T neutrophils (absolute) 3.7 x10e3 /uL 1.4-7. 0 normal Not Available [facility] ([facility]) [address] [place], [address], 01/25/2025 08:26:50 01/25/20 25 01/25/2025 CBC WITH DIFFE RENTI AL/PL ATELE T lymphs (absolute) 2.2 x10e3 /uL 0.7-3. 1 normal Not Available [facility] ([facility]) [address] [facility], [place], [address], 01/25/2025 08:26:50 01/25/20 25 01/25/2025 CBC WITH DIFFE RENTI AL/PL ATELE T monocytes(ab solute) 0.8 x10e3 /uL 0.1-0. 9 normal Not Available [facility] ([facility]) [address] [facility], [place], [address], 01/25/2025 08:26:50 01/25/20 25 01/25/2025 CBC WITH DIFFE RENTI AL/PL ATELE T eos (absolute) 0.1 x10e3 /uL 0.0-0. 4 normal Not Available [facility] ([facility]) [address] [facility], [place], [address], 01/25/2025 08:26:50 01/25/20 25 01/25/2025 CBC WITH DIFFE RENTI AL/PL ATELE T baso (absolute) 0.0 x10e3 /uL 0.0-0. 2 normal Not Available [facility] ([facility]) [address] [facility], [place], [address], 01/25/2025 08:26:50 01/25/20 25 01/25/2025 CBC WITH DIFFE RENTI AL/PL ATELE T immature granulocytes 0 % not estab. Not Available [facility] ([facility]) [address] [place], [address], 01/25/2025 08:26:50 01/25/20 25 01/25/2025 CBC WITH DIFFE RENTI AL/PL ATELE T immature grans (abs) 0.0 x10e3 /uL 0.0-0. 1 Not Available [facility] ([facility]) [address], [place], [address], 01/25/2025 08:26:50 01/25/20 25 01/25/2025 CBC WITH DIFFE RENTI AL/PL ATELE T NRBC DOOR CAPTAIN Not Available [facility] ([facility]) [address], [place], [address], 01/25/2025 08:26:50 01/25/20 25 01/25/2025 CBC WITH DIFFE RENTI AL/PL ATELE T hematology comments: DOOR CAPTAIN Not Available [facility] ([facility]) [address] [facility], [place], [address], 01/25/2025 08:26:50 01/25/20 25 01/25/2025 COMP. METAB OLIC PANEL (14) glucose 95 mg/dL 70-99 normal Not Available [facility] ([facility]) [address] [facility], [place], [address], 01/25/2025 08:26:50 01/25/20 25 01/25/2025 COMP. METAB OLIC PANEL (14) BUN 10 mg/dL 6-24 normal Not Available [facility] ([facility]) [address] [facility], [place], [address], 01/25/2025 08:26:50 01/25/20 25 01/25/2025 COMP. METAB OLIC PANEL (14) creatinine 0.76 mg/dL 0.57-1 .00 normal Not Available [facility] ([facility]) [address] [facility], [place], [address], 01/25/2025 08:26:50 01/25/20 25 01/25/2025 COMP. METAB OLIC PANEL (14) eGFR 95 mL/mi n/1.7 3 >59 normal Not Available [facility] ([facility]) [address] [facility], [place], [address], 01/25/2025 08:26:50 01/25/20 25 01/25/2025 COMP. METAB OLIC PANEL (14) BUN/creatini ne ratio 13 9-23 normal Not Available [facility] ([facility]) [address] [place], [address], 01/25/2025 08:26:50 01/25/20 25 01/25/2025 COMP. METAB OLIC PANEL (14) sodium 137 mmol/ L 134-14 4 normal Not Available [facility] ([facility]) [address] [place], [address], 01/25/2025 08:26:50 01/25/20 25 01/25/2025 COMP. METAB OLIC PANEL (14) potassium 3.9 mmol/ L 3.5-5. 2 normal Not Available [facility] ([facility]) [address] [place], [address], 01/25/2025 08:26:50 01/25/20 25 01/25/2025 COMP. METAB OLIC PANEL (14) chloride 99 mmol/ L 96-106 normal Not Available [facility] ([facility]) [address] [place], [address], 01/25/2025 08:26:50 01/25/20 25 01/25/2025 COMP. METAB OLIC PANEL (14) carbon dioxide, total 22 mmol/ L 20-29 normal Not Available [facility] ([facility]) [address] [place], [address], 01/25/2025 08:26:50 01/25/20 25 01/25/2025 COMP. METAB OLIC PANEL (14) calcium 9.3 mg/dL 8.7-10 .2 normal Not Available [facility] ([facility]) [address] [place], [address], 01/25/2025 08:26:50 01/25/20 25 01/25/2025 COMP. METAB OLIC PANEL (14) protein, total 6.8 g/dL 6.0-8. 5 normal Not Available [facility] ([facility]) [address] [facility] [place], [address], 01/25/2025 08:26:50 01/25/20 25 01/25/2025 COMP. METAB OLIC PANEL (14) albumin 4.2 g/dL 3.8-4. 9 normal Not Available [facility] ([facility]) [address] [facility] [place], [address], 01/25/2025 08:26:50 01/25/20 25 01/25/2025 COMP. METAB OLIC PANEL (14) globulin, total 2.6 g/dL 1.5-4. 5 Not Available [facility] ([facility]) [address] [facility] [place], [address], 01/25/2025 08:26:50 01/25/20 25 01/25/2025 COMP. METAB OLIC PANEL (14) bilirubin, total 1.3 mg/dL 0.0-1. 2 above high normal Not Available [facility] ([facility]) [address] [facility] [place], [address], 01/25/2025 08:26:50 01/25/20 25 01/25/2025 COMP. METAB OLIC PANEL (14) alkaline phosphatase 73 IU/L 49-135 normal Not Available [facility] ([facility]) [address] [facility] [place], [address], 01/25/2025 08:26:50 01/25/20 25 01/25/2025 COMP. METAB OLIC PANEL (14) AST (SGOT) 17 IU/L 0-40 normal Not Available [facility] ([facility]) [address] [facility] [place], [address], 01/25/2025 08:26:50 01/25/20 25 01/25/2025 COMP. METAB OLIC PANEL (14) ALT (SGPT) 17 IU/L 0-32 normal Not Available [facility] ([facility]) [address] [place], [address], 01/25/2025 08:26:50 01/25/20 25 01/25/2025 LIPID PANEL cholesterol, total 205 mg/dL 100-19 9 above high normal Not Available [facility] ([facility]) [address] [place], [address], 01/25/2025 08:26:50 01/25/2001/25/2025 LIPID PANEL triglyceride s 101 mg/dL 0-149 normal Not Available [facility] ([facility]) [address] [place], [address], 01/25/2025 08:26:50 01/25/2001/25/2025 LIPID PANEL HDL cholesterol 54 mg/dL >39 normal Not Available [facility] ([facility]) [address] [place], [address], 01/25/2025 08:26:50 01/25/20 25 01/25/2025 LIPID PANEL VLDL cholesterol param 18 mg/dL 5-40 Not Available [facility] ([facility]) [address] [place], [address], 01/25/2025 08:26:50 01/25/20 25 01/25/2025 LIPID PANEL LDL chol calc ([facility]) 133 mg/dL 0-99 above high normal Not Available [facility] ([facility]) [address] [place], [address], 01/25/2025 08:26:50 01/25/2001/25/2025 LIPID PANEL LDL calc comment: DOOR CAPTAIN Not Available [facility] ([facility]) [address] [place], [address], 01/25/2025 08:26:50 Result Notes None recorded. Problems Name Problem SNOMED Code Status Onset Date Resolution Date Notes Provider Name and Address Organization Details Recorded Time Exposure to SARS-CoV -2 Completed 07/03/2020 Removal Reason: Problem added by user [email or web address] [email or web address] from the COVID-19 watch flag Amara Pedraza null, [place] - [facility] 1 08:23:57 Hyperten sive disorder 45938114 Active 2018 Octavia Rojo null, [place] - [facility] 9 08:51:29 Anxiety 50512445 Active 2018 Octavia Rojo null, [place] - [facility] 9 08:51:35 Depressi ve disorder 72300517 Active 2018 Octavia Rjoo null, [place] - [facility] 9 08:51:40 Inguinal lymphade nopathy 052152730 Completed 201905/29/2021 Jane Franco APRN [address], [place], [address] , [place] - [facility] 2 15:54:19 Uterine leiomyom a 82790718 Active 2019 Jane Franco APRN [address], [place], [address] , [place] - [facility] 0 12:48:28 Endometr ium thickene d 199555401 Completed 201912/25/2019 Noreen Segura MD [address], [place], [address] , [place] - [facility] 0 18:23:33 Menorrha cristóbal 501444898 Completed 201905/29/2021 Jane Franco APRN [address], [place], [address] , [place] - [facility] 3 15:27:49 Enlarged uterus 913454768 Completed 201912/25/2019 Noreen Segura MD [address], [place], [address] , [place] - [facility] 0 18:23:38 Polyp of corpus uteri 55102189 Completed 201905/29/2021 Jane Franco APRN [address], [place], [address] , [place] - [facility] 2 15:54:15 Crying associat ed with mood 584183813 Completed 202108/11/2022 Jane Franco CLASS C [employer]UCK [employer] [address], [place], [address] , [place] - [facility] 3 08:25:06 Night sweats 05539731 Active 2021 Jane Franco CLASS C [employer] [address], [place], [address] , [place] [facility] 2 15:55:33 Body mass index 30+ - obesity 111490817 Active 2021 Jane Franco CLASS C [employer]UCK [employer]IVER [address], [place], [address] , [place] [facility] 2 15:55:42 Mammogra phy abnormal 039558111 Active 2022 Possible evolving focal symmetry left breast. Recommen d spot compress ion tomograp hy in the cc view, true lateral tomogram , and sonograp hic evaluati on-6 mm hypoecho ic nodule superfic ially at the 4 o'clock position of the left breast-b x schedule d 06/19/22- stromal sclerosi s and FBC; no atypia or malignan cy Jane FrancoABHISHEKN [address], [place], [address] , [place] [facility] 3 17:01:57 Menorrha cristóbal 027821615 Active 2022 Jane SalvadorBERNA thomas [address], [place], [address] , [place] [facility] 3 15:27:49 Anemia 712045105 Active 2022 Jane Salvador, CLASS C [employer]IVER [address], [place], [address] , [place] [facility] 3 15:27:53 Dysmenor tobi 683439450 Active 2022 Jane Franco APRN [address], [place], [address] , [place] [facility] 3 15:27:55 Cough 38844299 Active 2022 Xiomara Easley PA-C [address], [place], [address] , [place] - [facility] 11:18:54 COVID-19 721197730 Active 2024 iXomara Easley PA-C [address], [place], [address] , [place] - [facility] 09:31:09 Problem Notes None recorded. Procedures Surgical History Date Name Laterality Status Provider Name and Address Organization Details Recorded Time 06/20/19 23 Breast Biopsy completed Jane Franco APRN [address], [place], [address], [place] - [facility] 06/23/2022 17:02:18 05/30/19 23 Date of Last Mammogram completed Jane Franco APRN [address], [place], [address], [place] - [facility] 06/02/2022 16:41:04 05/29/19 22 Date of Last Pap Smear completed Jane Franco APRN [address], [place], [address], [place] - [facility] 06/03/2021 11:55:05 02/01/20 21 Date of Last Colonoscopy completed Bethany Scales [place] - [facility] 05/29/2021 09:46:27 12/08/19 20 hysteroscopy completed Amara Pedraza [place] - [facility] 12/25/2020 08:17:25 12/29/19 13 Tubal Ligation completed Amara Hernandezall [place] - [facility] 12/25/2020 08:17:25 07/17/19 01 Caesarean Section completed Amara Pedraza [place] - [facility] 12/25/2020 08:17:25 Tubal Ligation completed Octavia Alia [place] - [facility] 06/25/2018 08:55:44 section completed Octavia Alia [place] - [facility] 06/25/2018 08:55:53 Cholecystectomy, laparoscopic completed Octavia Alia [place] - [facility] 06/25/2018 08:55:58 Imaging Results None recorded. Procedure Notes None recorded. Medical Equipment None Reported. Allergies Allergen ID Allergen Name Allergen Category Reaction Reaction Severity Criticality Documentation Date Start Date Code Code System Note Provider Name and Address Organization Details Recorded Time 982089 doxycycli ne Not available rash Not available Not available 11/18/2022 3640 RxNorm Jeffrey villaseñor, [place] - [facility] 3 14:19:58 47726 amoxicill in trihydrat e medicatio n hives Not available Not available 01/11/20162007 02441 8 RxNorm React ion: Hives ; Comme nt: amoxi cilli n; Not Available [facility] 6 09:16:35 Medications Name Sig Start Date Stop Date Status Note LastModified by Organization Details LastModified Time Synalar 0.025 % topical ointment apply to affected area(s) by topical route 2 times per day x one week 11/09 completed Synalar 0.025 % topical ointment ;Recorde d Status: Recorded on: 09/22/19 09 12:04PM; Disconti nued Status: Disconti nued on: 11/10/19 10 11:03AM; User: [email or web address];P rinted: 09/22/19 09 Not Available Not Available [...] Disconti nued on: 12/17/19 13 10:46AM; User: [email or web address];P rinted: 12/01/19 13 Not Available Not [...] 2:33PM;U ser: ringm;In dication : Anxiety - (05.3000 00) Not Available Not Available Not Available [...] Disconti nued on: 06/16/19 13 2:58PM;U ser: Carmen [email or web address] n: Hyperten mook - (4019 ) Not [...] nued on: 11/16/19 13 3:17PM;U ser: Mame Smithi on: 11/11/19 13;Print ed: 07/14/19 13 Not [...] nued on: 12/17/19 13 10:46AM; User: santos;Lucila st. Completi on: 12/08/19 13;Print ed: 12/01/19 13 [...] 167.64 cm 14 /min 0 29.9 kg/m2 90197.6 9 g 98.2 [degF] 80 /min 98 % 98 % 130/72 mm[Hg] Kari Mancini [place] - [facility] 5 10:02:51 Social History Question Answer Notes LastModified by Organizat ion Details LastModified Time Tobacco Smoking Status Never Smoker Octavia villaseñor, [place] - [facility] 06/25/2018 08:54:17 Do You Have An Advance Directive? Yes Information not available 06/25/2018 How Many Years Have You Consumed Alcohol? 25 [email or web address] Information not available 12/25/2020 Are You Blind Or Do You Have Difficulty Seeing? No [email or web address] Information not available 06/19/2022 Is Blood Transfusion [...] Or The Highest Degree You Have Received? GP68740-5 Information not available 12/25/2020 Have There Been Any Changes To Your Family Or Social Situation? No Information no t available 08/08/2022 What Is The Fluoride Status Of Your Home? Fluoridated Information not available 08/08/2022 Have You Recently Or Are You Planning To Travel To An Area With Zika Virus? No Information not available 08/08/2022 Live Alone Or With Others? With Others [email or web address] Information not available 06/19/2022 Last Menstrual Period? 07/27/2022 Information not available 08/08/2022 Do You Have A Medical Power Of Electrotherapist? No Information not available 08/08/2022 What Was The Date Of Your Most Recent Tobacco Screening? 01/24/2025 [email or web address] Information not available 01/24/2025 How Many Children Do You Have? 3 Information not available 06/25/2018 Performs Monthly Self-breast Exam? No [email or web address] Information no t available 06/19/2022 Do You Use Protection During Sex? Always Information not available 08/08/2022 Do You Use Protection Against STDs? No [email or web address] Information not available 06/19/2022 What Is Your Relationship Status? Information not available 06/25/2018 Do You Use Your Seat Belt Or Car Seat Routinely? Yes Information not available 12/25/2020 Seat Belts Used Routinely Yes [email or web address] Information not available 06/19/2022 Are You Sexually Active? Yes Information not available 02/15/2021 Do You Have Smoke And Carbon Monoxide Detectors In Your Home? Yes [email or web address] Information not available 12/25/2020 Are You Passively Exposed To Smoke? No [email or web address] Information no t available 12/25/2020 How Much Tobacco Do You Smoke? No [email or web address] Information not available 06/19/2022 Do You Use Sunscreen Routinely? Yes Information not available 06/25/2018 Has Tobacco Cessation Counseling Been Provided? No Information not available 08/08/2022 Do You Have Difficulty Walking Or Climbing Stairs? No [email or web address] Information not available 06/19/2022 What Contraceptive Method [...] used smokeless tobacco? Never used smokeless tobacco [email or web address] Information not available 07/18/2019 Are you currently employed? Yes [email or web address] Information not available 12/25/2020 Do you have transportation difficulties? No Information not available 08/08/2022 Urinary incontinence assessment performed? No [email or web address] Information not available 06/19/2022 Are you able to care for yourself independently? Yes Information not available 12/25/2020 Do you have difficulty dressing, bathing, grooming, or toileting? No [email or web address] Information not available 06/19/2022 Do you or have you ever used e-cigarettes or vape? Never used electronic cigarettes [email or web address] Information not available 07/18/2019 What is your exercise level? Occasional Information not available 06/25/2018 Do you use any illicit or recreational drugs? No Information not available 08/08/2022 Do you or have you ever used any other forms of tobacco or nicotine? No Information not available 08/08/2022 What is your level of alcohol consumption? Moderate [email or web address] Information not available 12/25/2020 What is your status? Not Information no t available 08/08/2022 Are you able to walk independently without assistance or assistive devices? YESWOREST [email or web address] Information not available 06/19/2022 Do you have difficulty doing errands alone? No [email or web address] Information not available 06/19/2022 What is your occupation? [employer] Information not available 06/25/2018 Mental Status Question Answer Note LastModified by Organizat ion Details LastModified Time Do you feel stressed (tense, restless, nervous, or anxious, or unable to sleep at night)? [id number] [email or web address] Information not available 12/25/2020 Do you have difficulty concentrating, remembering or making decisions? No [email or web address] Information no t available 06/19/2022 Family History Relationship Description Onset Age of this Age Resolved Age Notes LastModified by Organization Details LastModified Time Maternal Grandmother Cerebrovascu lar accident ntarter Not available 08:53:33 Maternal Grandmother Hypertensive disorder ntarter Not available 2018 08:53:59 Brother Diabetes mellitus [email or web address] Not available 09:09:30 Maternal Grandfather Hypertensive disorder [email or web address] Not available 12/06 08:17:03 Mother Hypertensive disorder ntarter Not available 2018 08:53:59 Mother Disorder of thyroid gland ntarter Not available 2018 08:54:10 Mother Heart disease 16 [email or web address] Not available 12/06 08:17:03 Mother Arthritis [email or web address] Not avail able 12/25/2020 08:17:03 Father Hypercholest erolemia [email or web address] Not available 12/06 08:17:03 Father Hypertensive disorder [email or web address] Not available 12/06 08:17:03 Maternal Uncle Diabetes mellitus [email or web address] Not available 09:09:30 Medical History Condition Response Depression Y Anxiety Disorder Y Acid Reflux (GERD) Y Allergies/Hayfever Y ADD/ADHD N AIDS/HIV N Hypertension Y Gynecological History Statement/Question Response Abnormal [...] cancelled patient objection Jane Franco, BERNA [address], [place], [address], [place] [facility] 07/18/2019 16:43:45 Influenza, split virus, quadrivalent, PF 12/26/19 21 completed Amara villaseñor [place] - [facility] 01/08/2021 13:40:47 COVID-19, mRNA, LNP-S, PF, 100 mcg/0.5mL dose or 50 mcg/0.25mL dose 04/19/19 22 completed Davonte Smith PA-C [address], [place], [address], [place] [facility] 04/19/2021 11:19:06 Tdap 06/25/19 22 completed Amara Pedraza null, [place] - [facility] 06/24/2021 09:29:49 Influenza, split virus, quadrivalent, PF 01/13/20 23 completed Davonte Smith PA-C [address], [place], [address], [place] [facility] 01/12/2023 15:32:57 Influenza, split virus, trivalent, preservative 01/25/20 24 completed Xiomara Spivey PA-C [address], [place], [address], [facility] - [facility] 01/25/2024 15:25:34 COVID-19, mRNA, LNP-S, PF, 100 mcg/0.5mL dose or 50 mcg/0.25mL dose 06/13/19 21 completed Tiffanie Coats null, [place] - [facility] 08/08/2022 14:58:26 COVID-19, mRNA, LNP-S, PF, 100 mcg/0.5mL dose or 50 mcg/0.25mL dose 07/11/19 21 completed Tiffanie Coats null, [place] - [facility] 08/08/2022 14:58:26 Past Encounters Encounter ID Performer Location Encounter Start Date Encounter Closed Date Diagnosis/Indication Diagnosis SNOMED-CT Code Diagnosis ICD10 Code Diagnosis IMO Codes Diagnosis Note [id number] Davonte Smith PA-C [address] [address] 01/24/2025 09:55:47 01/24/2025 10:33:19 Anxiety 20923664 F41.9 -stable Hypertensive disorder 38 502107 I10 -stable Long-term drug therapy 351445735 Z79.899 Health Concerns Section Related Observation LastModified by Organization Detai ls LastModified Time None Recorded Concern Status LastModified by Organization Details LastModified Time None Recorded Payers Encounter Date Sequence Insurance Name Policy Number Policy Sorenson Covered Member ID Sorenson Member ID Guarantor Name 01/24/2025 1 [place] [id number] 1 Tiara Guerra [id number] Tiara Guerra Notes Date Note Type Note Provider Name and Address Organization Details Recorded Time 01/24/2025 text/html Hypertension F/UReported by PatientHPIFor medications, patient reportstaking medications as directedandno side effects from medication. For lifestyle, patient reportsregular exercise,limiting/avoi ding salt, andcompliant with low salt diet. For [...] effects. Davonte Smith PA-C [address], [place], [address], [place] [facility] 01/24/2025 10:17:09 OBGyn Episode No OBEpisode recorded.
[2025-01-31 11:50] VITALS: BP 143/89; BP 172/88; PULSE 85; RESP 14
== END 2025-01-31 23:59 | disposition home or self-care (01) ==
LOC: RT 11:19
PROVIDERS: PCP Family Medicine; Visit Provider Nurse Practitioner Family
DX: I49.3 Ventricular premature depolarization (principal); R94.31 Abnormal electrocardiogram [ECG] [EKG]; R07.89 Other chest pain
CPT/HCPCS: 93017; 93018

== ENCOUNTER 2025-02-17 08:31 | Outpatient (CLI) | payer BC, SELFPAY ==
--- NOTE | 2025-02-17 08:30 | US_ITS ---
FINAL REPORT CLINICAL HISTORY: elevated bilirubin,alcohol use FINDINGS: ULTRASOUND ABDOMEN There is fatty infiltration of the liver. Spleen has a normal sonographic appearance. Patient is status postcholecystectomy. There is mild biliary ductal dilatation, probably related to previous cholecystectomy. The kidneys show no evidence of mass. There is mild hydronephrosis of the left kidney. Pancreas is not well visualized. IVC and aorta are grossly unremarkable. There is no obvious fluid collection. IMPRESSION: Mild biliary ductal dilatation, probably related to previous cholecystectomy. Fatty liver. Mild left hydronephrosis. Reviewed, Interpreted and Dictated by Mohsen Drew MD Transcribed by Odalys Nelson Authenticated and . [facility]
--- OUTSIDE RECORDS SUMMARY | 2025-02-17 08:34 | XMS_ITS | Encounter Summary ---
Author Organization [place] [address] Care Team Providers Care Cap Lining Machine Operator Name Role Phone Fortino Castro MD Unavailable [phone] Reason for Visit * Reason Comments Medication Refill Encounter Details Date Type Department Care Team (Late st Contact Info) Description 01/13/2025 Refill [facility] [address] [place] [address] Fransisco Mariscal MD [address] [place] [address] Medication Refill Social History Tobacco Use Types Packs/Day Years Used Date Smoking Tobacco: Never Passive Smoke Exposure: Never Smokeless Tobacco: Never Alcohol Use Standard Drinks/Week Comments Yes 24 (1 standard drink = 0.6 oz pu re alcohol) Sexually Active Control Partners Comments Yes Surgical Male Tubal Comments No Sex and Gender Information Value Date Recorded Sex Assigned at Not on file Legal Sex Female 8:27 AM EST Gender Identity Not on file Sexual Orientation Not on file documented as of this encounter Miscellaneous Notes * Telephone Encounter - Frieda Herrera CPhT - 01/16/2025 4:58 PM EDT pantoprazole Patient has not had an office visit for any reason in >13 months (395 days). Lab tests needed, if any: NONE Defer to office. documented in this encounter Plan of Treatment Upcoming Encounters Date Type Department Care Team (Late st Contact Info) Description 03/09/2025 10:15 AM EST Office Visit [facility] [address] [address] Israel Bailon MD [address] [address] documented as of this encounter Visit Diagnoses Not on filedocumented in this encounter Care Teams Cap Lining Machine Operator Relationship Specialty Start Date End Date Fortino Castro MD [address] [place] [address] Medical Oncologist Internal Medicine-Hematology and Oncology 09/29/22 documented as of this encounter
--- OUTSIDE RECORDS SUMMARY | 2025-02-17 08:34 | XMS_ITS | Data Portability ---
Author Organization [facility] RACQUEL Null [place] [facility] Address [address] [facility] [address] [place] [address] Care Team Providers Care Director Multimedia Name Role Phone CHUCKIE RUIZ Human Resource Statistician Assessment No assessment recorded. 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 Medical Equipment None Reported. Allergies Allergen ID Allergen Name Allergen Category Reaction Reaction Severity Criticality Documentation Date Start Date Code Code System Note Provider Name and Address Organization Details Recorded Time 264485 amoxicill in trihydrat e medicatio n Not available Not available Not available 02/29/20162015 31531 8 RxNorm Comme nt: Creat ed By: Houston Cryst al;Cr eated Date: 016 2:23: 03 PM; Not Available [facility] 6 10:10:22 894916 doxycycli ne Not available Not available Not available Not available 02/25/2023 3640 RxNorm Darshana Santana [facility] 3 08:04:01 Medications Name Sig Start Date [...] Tobacco Smoking Status Never Smoker Darshana Santana [facility] 02/25/2023 08:05:13 Sunscreen Use? Yes [email or web address] Informatio n not available 02/25/2023 Tanning Bed Use Yes [email or web address] Informati on not available 02/25/2023 Are You Or Trying To Become ? No [email or web address] Information not available 02/25/2023 Are You On Control? Yes IUD [email or web address] Information not available 02/25/2023 Are You ? No [email or web address] Information not available 02/25/2023 Sex: Female Functional Status Question Answer Note LastModified by Organizat ion Details LastModified Time Do you use any illicit or recreational drugs? No Information not available 02/25/2023 What is your level of alcohol consumption? Moderate [email or web address] Information not available 02/25/2023 Mental Status None recorded. Family History Relationship Description Onset Age of this Age Resolved Age Notes LastModified by Organization Details LastModified Time Father No current problems or disability Not available 02/25 08:04:58 Mother No current problems or disability [email or web address] Not available 02/25 08:04:58 Medical History Condition Response Autoimmune disease N Melanoma N Skin Cancer N Squamous Cell Carcinoma N Basal Cell Carcinoma N Gynecological HistoryNo gynecological history recorded. Obstetrics History GPAL:G 0 P 0 0 0 0 Past Encounters Encounter ID Performer Location Encounter Start Date Encounter Closed Date Diagnosis/Indication Diagnosis SNOMED-CT Code Diagnosis ICD10 Code Diagnosis IMO Codes Diagnosis Note [id number] CHUCKIE RUIZ PA-C [address] [address] 02/25/2023 07:37:26 02/25/2023 13:06:45 Multiple benign melanocytic nevi 732092543 D22.5 - Benign moles seen on exam [...] changing or worrisome lesions Seborrheic keratosis 394 485020 L82.1 - Benign overgrowth s of skin- Hereditary lesion on R chest previously bx'd, proven to be an SK. Senile angioma 0096712 I 78.1 - Benign blood vessel growths - Hereditary Solar lentigo 05736012 L 81.4 - Benign brown spots - Sun-induce d Acne 12780382 L70.0 Explained dx.Options include bx, which will [...] or breastfeed ing. Handout explaining use provided. [id number] CHUCKIE RUIZ PA-C [place] [place] [address] [place] [address] 05/09/2024 13:48:56 05/09/2024 14:54:27 Multiple benign melanocytic nevi 892870557 D22.5 - Benign moles seen on exam [...] changing or worrisome lesions Seborrheic keratosis 394 124480 L82.1 - Benign overgrowth s of skin - Hereditary Senile angioma 2175003 I 78.1 - Benign blood vessel growths- Hereditary Solar lentigo 48646652 L 81.4 - Benign brown spots - Sun-induce d Telangiect justin of skin of face 779723527 I78.1 - Pt reports lesions recently bleeding- [...] ID Guarantor Name 05/09/2024 1 [place] [id number] 1 Tiara Guerra [id number] Tiara Guerra Notes Date Note Type Note Provider Name and Address Organization Details Recorded Time 02/25/2023 text/html Patient requests a full body skin exam. Location: Full bodyDuration: 2yrsHistory: No Hx of NMSCAreas of concern: Nose CHUCKIE RUIZ PA-C [address] [place], [address], [facility] 02/25/2023 09:02:45 05/09/2024 text/html ROS as noted in the HPI Patient requests a full body skin exam. Location: Full bodyDuration: AnnualHistory: No hx of NMSC/MMAreas of concern: R nose (pt was given triamcinalone by PCP) CHUCKIE RUIZ PA-C [address] [place], [address], [facility] 05/09/2024 21:13:34 OBGyn Episode No OBEpisode recorded.
--- OUTSIDE RECORDS SUMMARY | 2025-02-17 08:34 | XMS_ITS | Continuity of Care Document ---
Author Organization [facility] Address [address] [place] [address] Assessment No assessment recorded. Plan of Treatment Reminders Order Date Submit Date Provider Last Modified By Organization Details Last Modified Time Details Appointments Follow Up 2025 08:40A Sabrina Smith PA-C Not available Not available Not available Lab None recorded. Referral None recorded. Procedures None recorded. Surgeries None recorded. Imaging None recorded. Medication Orders Valtrex 1 gram tablet 2024 025 [facility], [address] [place] [address] [place], [id number], 12/20/2024 05:01:55 clindamyc in HCl 300 mg capsule 2024 025 [facility], [address] [place] [address] [place], [id number], 12/20/2024 05:01:55 Patient TargetsNo targets recorded. Patient Instructions Encounter Date Encounter Id Patient Instructions Last Modified By Organization Details Last Modified Time 12/06/2024 [id number] CALL W CHANGES RTC OR ED IF [...] Note LastModifiedBy Organization Detail LastModifiedTime 12/23/1912/27/2024 elect rocesme diogr am No observ ation record ed. [email or web address] [facility] [address] [facility], [place], [address], 12/27/2024 13:54:52 12/24/19 25 12/22/2024 elect rocar diogr am No observ ation record ed. BARCODE [facility] [address] [facility], [place], [address], 12/23/2024 11:31:23 02/02/20 25 01/31/2025 cardi ac stres s test No observ ation record ed. [email or web address] [facility] [address], [place], [address], 02/01/2025 16:22:58 Result Notes None recorded. Problems Name Problem SNOMED Code Status Onset Date Resolution Date Notes Provider Name and Address Organization Details Recorded Time Exposure to SARS-CoV -2 Completed 07/03/2020 Removal Reason: Problem added by user rmarshal l45 from the COVID-19 watch flag Amara Pedraza null, [place] - [facility] 1 08:23:57 Hyperten sive disorder 47452633 Active 2018 Octavia Rojo null, [place] - [facility] 9 08:51:29 Anxiety 14097534 Active 2018 Octavia Rojo [place], [place] [facility] 9 08:51:35 Depressi ve disorder 64069260 Active 2018 Octavia Rojo null, [place] [facility] 9 08:51:40 Inguinal lymphade nopathy 525484413 Completed 201905/29/2021 Jane Franco APRN [address], [place], [address] , [place] - [facility] 2 15:54:19 Uterine leiomyom a 82101354 Active 2019 Jane Franco APRN [address], [place], [address] , [place] - [facility] 0 12:48:28 Endometr ium thickene d 363629746 Completed 201912/25/2019 Noreen Segura MD [address], [place], [address] , [place] [facility] 0 18:23:33 Menorrha cristóbal 801594193 Completed 201905/29/2021 Jane Franco APRN [address], [place], [address] , [place] [facility] 3 15:27:49 Enlarged uterus 733288472 Completed 201912/25/2019 Noreen Segura MD [address], [place], [address] , [place] [facility] 0 18:23:38 Polyp of corpus uteri 76013449 Completed 201905/29/2021 Jane Franco APRN [address], [place], [address] , [place] [facility] 2 15:54:15 Crying associat ed with mood 409555437 Completed 202108/11/2022 Jane Franco APRN [address], [place], [address] , [place] [facility] 3 08:25:06 Night sweats 32384188 Active 2021 Jane Franco APRN [address], [place], [address] , [place] [facility] 2 15:55:33 Body mass index 30+ - obesity 151103717 Active 2021 Jane Franco APRN [address], [place], [address] , [place] [facility] 2 15:55:42 Mammogra phy abnormal 598623321 Active 2022 Possible evolving focal symmetry left breast. Recommen d spot compress ion tomograp hy in the cc view, true lateral tomogram , and sonograp hic evaluati on-6 mm hypoecho ic nodule superfic ially at the 4 o'clock position of the left breast-b x schedule d 06/19/22- stromal sclerosi s and FBC; no atypia or malignan cy Jane Lópezcker, NEW ORDER CLERK [address], [place], [address] , [place] [facility] 3 17:01:57 Menorrha cristóbal 482157556 Active 2022 Jane Lópezcker, NEW ORDER CLERK [address], [place], [address] , [place] [facility] 3 15:27:49 Anemia 664443106 Active 2022 Jane ABHISHEK FrancoN [address], [place], [address] , [place] [facility] 3 15:27:53 Dysmenor tobi 986045563 Active 2022 Jane Franco APRN [address], [place], [address] , [place] [facility] 3 15:27:55 Cough 77094377 Active 2022 Xiomara Easley PA-C [address], [place], [address] , [place] [facility] 3 11:18:54 COVID-19 441174955 Active 2024 Xiomara Easley PA-C [address], [place], [address] , [place] [facility] 5 09:31:09 Problem Notes None recorded. Procedures Surgical History Date Name Laterality Status Provider Name and Address Organization Details Recorded Time 06/20/19 23 Breast Biopsy completed Jane Franco APRN [address], [place], [address], [place] [facility] 06/23/2022 17:02:18 05/30/19 23 Date of Last Mammogram completed Jane Franco APRN [address], [place], [address], [place] [facility] 06/02/2022 16:41:04 05/29/19 22 Date of Last Pap Smear completed Jane Franco APRN [address], [place], [address], [place] [facility] 06/03/2021 11:55:05 02/01/20 [...] Name and Address Organization Details Recorded Time 805093 doxycycli ne Not available rash Not available Not available 11/18/2022 3640 RxNorm Jeffrey villaseñor [place] - [facility] 3 14:19:58 52498 amoxicill in trihydrat e medicatio n hives Not available Not available 01/11/20162007 87677 8 RxNorm React ion: Hives ; Comme nt: amoxi cilli n; Not Available [facility] 6 09:16:35 Medications Name Sig Start [...] Disconti nued on: 12/17/19 13 10:46AM; User: granth;Karen reynolds: 12/01/19 13 Not Available Not Available Not [...] completed Not Available Not Available Not Available bisoprolo l fumarate 5 mg tablet TAKE ONE TABLET BY MOUTH EVERY DAY active Not Available Not Available No t Available terbinafi ne HCl 250 mg tablet [...] 2:33PM;U ser: ringm;In dication : Anxiety - (053000 00) Not Available Not Available Not Available [...] Disconti nued on: 11/10/19 10 11:03AM; User: [facility] Not Available Not Available Not Available methylpre [...] Disconti nued on: 11/16/19 13 3:17PM;U ser: santos;E st. Completi on: 11/11/19 13;Print ed: 07/14/19 13 [...] ser: andrusa; Est. Completi on: 11/02/19 16;Pharm acLalito ied: 07/05/19 16 1:30PM Not Available Not Available Not Available telmisart an 80 mg-hydroc hlorothia zide 25 mg tablet TAKE ONE TABLET BY MOUTH EVERY DAY active Not Available Not Available No t Available metoprolo l succinate 04/22 completed metoprol [...] Disconti nued on: 05/17/19 13 11:16AM; User: Mame st. Completi on: 06/24/19 13;Print ed: 12/10/19 [...] Kari Mancini [place] - [facility] 5 14:47:42 Social History Question Answer Notes LastModified by Organizat ion Details LastModified Time Tobacco Smoking Status Never Smoker Octavia villaseñor, [place] - [facility] 06/25/2018 08:54:17 Do You Have An Advance Directive? Yes Information not available 06/25/2018 How Many Years Have You Consumed Alcohol? 25 [email or web address] Information not available 12/25/2020 Are You Blind Or Do You Have Difficulty Seeing? No [email or web address] Information not available 06/19/2022 Is Blood Transfusion [...] Or The Highest Degree You Have Received? OM94179-2 [email or web address] Information not available 12/25/2020 Have There Been Any Changes To Your Family Or Social Situation? No Information no t available 08/08/2022 What Is The Fluoride Status Of Your Home? Fluoridated Information not available 08/08/2022 Have You Recently Or Are You Planning To Travel To An Area With Zika Virus? No Information not available 08/08/2022 Live Alone Or With Others? With Others [email or web address] Information not available 06/19/2022 Last Menstrual Period? 07/27/2022 Information not available 08/08/2022 Do You Have A Medical Power Of Door To Door Selling Agent? No Information not available 08/08/2022 What Was The Date Of Your Most Recent Tobacco Screening? 01/24/2025 [email or web address] Information not available 01/24/2025 How Many Children Do You Have? 3 Information not available 06/25/2018 Performs Monthly Self-breast Exam? No [email or web address] Information no t available 06/19/2022 Do You Use Protection During Sex? Always Information not available 08/08/2022 Do You Use Protection Against STDs? No [email or web address] Information not available 06/19/2022 What Is Your Relationship Status? Information not available 06/25/2018 Do You Use Your Seat Belt Or Car Seat Routinely? Yes [email or web address] Information not available 12/25/2020 Seat Belts Used Routinely Yes [email or web address] Information not available 06/19/2022 Are You Sexually Active? Yes [email or web address] Information not available 02/15/2021 Do You Have Smoke And Carbon Monoxide Detectors In Your Home? Yes [email or web address] Information not available 12/25/2020 Are You Passively Exposed To Smoke? No [email or web address] Information no t available 12/25/2020 How Much Tobacco Do You Smoke? No [email or web address] Information not available 06/19/2022 Do You Use Sunscreen Routinely? Yes Information not available 06/25/2018 Has Tobacco Cessation Counseling Been Provided? No Information not available 08/08/2022 Do You Have Difficulty Walking Or Climbing Stairs? No [email or web address] Information not available 06/19/2022 What Contraceptive Method [...] Functional Status Question Answer Note LastModified by [employer] (deja mi)at ion Details LastModified Time How many times per week do you consume alcohol? 5-7 times per week Information not available 08/08/2022 Do you or have you ever used smokeless tobacco? Never used smokeless tobacco [email or web address] Information not available 07/18/2019 Are you currently employed? Yes [email or web address] Information not available 12/25/2020 Do you have transportation difficulties? No Information not available 08/08/2022 Urinary incontinence assessment performed? No [email or web address] Information not available 06/19/2022 Are you able to care for yourself independently? Yes [email or web address] Information not available 12/25/2020 Do you have difficulty dressing, bathing, grooming, or toileting? No Information not available 06/19/2022 Do you or have you ever used e-cigarettes or vape? Never used electronic cigarettes [email or web address] Information not available 07/18/2019 What is your exercise level? Occasional Information not available 06/25/2018 Do you use any illicit or recreational drugs? No Information not available 08/08/2022 Do you or have you ever used any other forms of tobacco or nicotine? No Information not available 08/08/2022 What is your level of alcohol consumption? Moderate [email or web address] Information not available 12/25/2020 What is your status? Not Information no t available 08/08/2022 Are you able to walk independently without assistance or assistive devices? YESWOREST [email or web address] Information not available 06/19/2022 Do you have difficulty doing errands alone? No [email or web address] Information not available 06/19/2022 What is your occupation? [employer] Information not available 06/25/2018 Mental Status Question Answer Note LastModified by Organizat ion Details LastModified Time Do you feel stressed (tense, restless, nervous, or anxious, or unable to sleep at night)? IV07090-8 [email or web address] Information not available 12/25/2020 Do you have difficulty concentrating, remembering or making decisions? No [email or web address] Information no t available 06/19/2022 Family History Relationship Description Onset Age of this Age Resolved Age Notes LastModified by Organization Details LastModified Time Maternal Grandmother Cerebrovascu lar accident ntarter Not available 08:53:33 Maternal Grandmother Hypertensive disorder ntarter Not available 2018 08:53:59 Brother Diabetes mellitus [email or web address] Not available 09:09:30 Maternal Grandfather Hypertensive disorder [email or web address] Not available 12/06 08:17:03 Mother Hypertensive disorder ntarter Not available 2018 08:53:59 Mother Disorder of thyroid gland ntarter Not available 2018 08:54:10 Mother Heart disease 16 [email or web address] Not available 12/06 08:17:03 Mother Arthritis [email or web address] Not avail able 12/25/2020 08:17:03 Father Hypercholest erolemia [email or web address] Not available 12/06 08:17:03 Father Hypertensive disorder [email or web address] Not available 12/06 08:17:03 Maternal Uncle Diabetes mellitus [email or web address] Not available 09:09:30 Medical History Condition Response [...] Time Influenza, split virus, quadrivalent, preservative 07/18/19 cancelled patient objection Jane Franco, NEW ORDER CLERK [address], [place], [address], [place] [facility] 07/18/2019 16:43:45 Influenza, split virus, quadrivalent, PF 12/26/19 21 completed Amara Pedraza null, [place] - [facility] 01/08/2021 13:40:47 COVID-19, mRNA, LNP-S, PF, 100 mcg/0.5mL dose or 50 mcg/0.25mL dose 04/19/19 22 completed Davonte Smith PA-C [address], [place], [address], [place] [facility] 04/19/2021 11:19:06 Tdap 06/25/19 22 completed Amara Pedraza null, [place] [facility] 06/24/2021 09:29:49 Influenza, split virus, quadrivalent, PF 01/13/20 23 completed Davonte Smith PA-C [address], [place], [address], [place] [facility] 01/12/2023 15:32:57 Influenza, split virus, trivalent, preservative 01/25/20 24 completed Xiomara Spivey PA-C [address], [place], [address], [place] [facility] 01/25/2024 15:25:34 COVID-19, mRNA, LNP-S, PF, 100 mcg/0.5mL dose or 50 mcg/0.25mL dose 06/13/19 21 completed Tiffanie villaseñor, [place] - [facility] 08/08/2022 14:58:26 COVID-19, mRNA, LNP-S, PF, 100 mcg/0.5mL dose or 50 mcg/0.25mL dose 07/11/19 21 completed TING [place] - [facility] 08/08/2022 14:58:26 Past Encounters Encounter ID Performer Location Encounter Start Date Encounter Closed Date Diagnosis/Indication Diagnosis SNOMED-CT Code Diagnosis ICD10 Code Diagnosis IMO Codes Diagnosis Note [id number] ALISON Kee [facility] [address] [place] [address] 12/06/2024 14:41:29 12/06/2024 14:55:29 Cellulitis of face 573253212 J34.0 87923 Eruption o f skin of face 4986140708 R21 59516061 Health Concerns Section Related Observation LastModified by Organization Detai ls LastModified Time None Recorded Concern Status LastModified by Organization Details LastModified Time None Recorded Payers Encounter Date Sequence Insurance Name Policy Number Policy Sorenson Covered Member ID Sorenson Member ID Guarantor Name 12/06/2024 1 [employer] [id number] 1 Tiara Guerra [id number] Tiara Guerra Notes Date Note Type Note Provider Name and Address Organization Details Recorded Time 12/06/2024 text/html PT noticed a rash on her face that started Thursday AM, on upper lip but has spread up to nose and on face. No itching or burning of rash. No changes with water. Davonte Smith PA-C [facility] [address], [place], [address], [place] - [facility] 12/06/2024 14:54:08 OBGyn Episode No OBEpisode recorded.
--- OUTSIDE RECORDS SUMMARY | 2025-02-17 08:35 | XMS_ITS | Data Portability ---
Author Organization [facility] Address [address] [place] [address] Assessment No assessment recorded. Plan of Treatment Reminders Order Date Submit Date Provider Last Modified By Organization Details Last Modified Time Details Appointments Follow Up 2025 08:40A Sabrina Smith PA-C Not available Not available Not available Lab CBC w/ auto diff 2024 025 JULIANNA [facility], [address], Antonio F, [place], [address], 01/25/2025 08:26:50 lipid panel, serum 2024 025 JULIANNA [facility], [address], [place] [address], [place], [address], 01/25/2025 08:26:50 CMP, serum or plasma 2024 025 JULIANNA [facility], [address], [place] [address], [place], [address], 01/25/2025 08:26:50 magnesium , serum or plasma 2024 025 JULIANNA [facility], [address], [place] [address], [place], [address], 12/23/2024 08:26:28 renal function panel, serum 2024 025 JULIANNA [facility], [address], [place], [place], [address], 12/23/2024 08:26:28 CMP, serum or plasma 2024 025 JULIANNA [facility], [address], [place] [address], [place], [address], 07/19/2024 12:21:30 CBC w/ auto diff 2024 025 JULIANNA [facility], [address], [place], [place], [address], 07/19/2024 12:21:29 lipid panel, serum 2024 025 JULIANNA [facility], [address], [place], [place], [address], 07/19/2024 12:21:30 rapid flu (A+B) 2024 025 [facility], [address] [place] [address], [phone], 06/01/2024 09:30:06 rapid SARS CoV + SARS CoV 2 Ag, QL IA, respirato ry specimen 2024 025 [facility], [address] [place] [address], [id number], 06/01/2024 09:30:06 rapid strep group A, throat 2024 025 [facility], [address] [place] [address], [id number], 06/01/2024 09:30:06 Referral cardiolog ist referral 2024 025 JULIANNA Not available 01/11/2025 12:20:05 Procedures None recorded. Surgeries None recorded. Imaging electroca rdiogram 2024 025 [email or web address] [facility], [address] [place] [address], [phone], 12/22/2024 15:04:11 Medication Orders losartan 100 mg tablet 2024 025 JULIANNA Anna, [address] [place] [address] [place], [id number], 01/24/2025 10:35:49 amlodipin e 10 mg tablet 2024 025 JULIANNA [facility], [address] [place] [address] [place], [id number], 01/24/2025 10:25:44 Valtrex 1 gram tablet 2024 JULIANNA Anna, [address] [place] [address] [place], [place], [id number], 12/20/2024 05:01:55 clindamyc in HCl 300 mg capsule 2024 025 JULIANNA Anna, [address] [place] [address] [place], [id number], 12/20/2024 05:01:55 hydrochlo rothiazid e 12.5 mg capsule 2024 025 JULIANNA Anna, [address] [place] [address] [place], [id number], 07/18/2024 13:04:57 amlodipin e 10 mg tablet 2024 025 JULIANNA Anna, [address] [place] [address] [place], [place], [id number], 11/28/2024 17:08:30 citalopra m 20 mg tablet 2024 025 JULIANNA Anna [address] [place] [address] [place], [id number], 12/22/2024 14:47:50 fluticaso ne propionat e 50 mcg/actua tion nasal spray,isidro pension 2024 025 [facility], [address] [place] [address] , [place], [place], [id number], 12/17/2024 11:32:40 losartan 100 mg tablet 2024 [facility], [address] [place] [address] [place], [id number], 01/14/2025 10:52:28 Paxlovid 300 mg (150 mg x 2)-100 mg tablets in a dose pack 2024 [facility], [address] [place] [address] [place], [id number], 07/18/2024 09:26:15 albuterol sulfate HFA 90 mcg/actua tion aerosol inhaler 2024 [facility], [address] [place] [address] [place], [place], [id number], 06/01/2024 10:37:06 Patient TargetsNo targets recorded. Patient Instructions Encounter Date Encounter Id Patient Instructions Last Modified By Organization Details Last Modified Time 06/01/2024 [id number] Call with change s RTC or ED if symptoms change or worsen Keep next interval check-up Cont. chronic meds as prescribed Chronic conditions are stable Discussed natural and expected course of this diagnosis and need to alert me if symptoms do not follow expected course or if any worsens [email or web address] Not available 06/01/2024 09:14:49 07/18/2024 [id number] CALL WITH CHANGE S RTC OR GO [...] WORSEN. [email or web address] Not available 07/18/2024 09:22:25 12/06/2024 [id number] CALL W CHANGES RTC OR ED IF SYMPTOMS CHANGE OR WORSEN KEEP NEXT INTERVAL CHECKUP CONT CHRONIC MEDS PERSCRIBED CHRONIC ISSUES ARE STABLE DISCUSSED NATURAL AND EXPECTED COURSE OF THIS DIAGNOSIS AND NEED TO ALERT ME IF SYMPTOMS DO NOT FOLLOW EXPECTED COURSE, OR IF ANY WORSEN [email or web address] Not available 12/06/2024 14:53:57 12/22/2024 [id number] CALL W CHANGES RTC OR ED IF SYMPTOMS CHANGE OR WORSEN KEEP NEXT INTERVAL CHECKUP CONT CHRONIC MEDS PERSCRIBED CHRONIC ISSUES ARE STABLE DISCUSSED NATURAL AND EXPECTED COURSE OF THIS DIAGNOSIS AND NEED TO ALERT ME IF SYMPTOMS DO NOT FOLLOW EXPECTED COURSE, OR IF ANY WORSEN INCREASE HCTZ TO 25MG PO QD. asa 81mg po qd. 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 Referring Physician: Davonte Smith, Family Medicine, Encounter Date: 12/22/2024 Results Created Date Observation Date Name Description Value Unit Range Abnormal Flag Note LastModifiedBy Organization Detail LastModifiedTime 05/04/19 25 05/05/2024 BASIC METAB OLIC PANEL (8) glucose 94 mg/dL 70-99 normal Not Available [facility] ([facility]) [address] [place], [address], 05/05/2024 08:23:50 05/04/19 25 05/05/2024 BASIC METAB OLIC PANEL (8) BUN 15 mg/dL 6-24 normal Not Available [facility] ([facility]) [address] [place], [address], 05/05/2024 08:23:50 05/04/19 25 05/05/2024 BASIC METAB OLIC PANEL (8) creatinine 0.67 mg/dL 0.57-1 .00 normal Not Available [facility] ([facility]) [address], [place], [address], 05/05/2024 08:23:50 05/04/19 25 05/05/2024 BASIC METAB OLIC PANEL (8) eGFR 106 mL/mi n/1.7 3 >59 normal Not Available [facility] ([facility]) [address] [facility] [place], [address], 05/05/2024 08:23:50 05/04/19 25 05/05/2024 BASIC METAB OLIC PANEL (8) BUN/creatini ne ratio 22 9-23 normal Not Available [facility] ([facility]) [address] [facility] [place], [address], 05/05/2024 08:23:50 05/04/19 25 05/05/2024 BASIC METAB OLIC PANEL (8) sodium 138 mmol/ L 134-14 4 normal Not Available [facility] ([facility]) [address] [facility] [place], [address], 05/05/2024 08:23:50 05/04/19 25 05/05/2024 BASIC METAB OLIC PANEL (8) potassium 3.9 mmol/ L 3.5-5. 2 normal Not Available [facility] ([facility]) [address] [facility] [place], [address], 05/05/2024 08:23:50 05/04/19 25 05/05/2024 BASIC METAB OLIC PANEL (8) chloride 100 mmol/ L 96-106 normal Not Available [facility] ([facility]) [address] [facility] [place], [address], 05/05/2024 08:23:50 05/04/19 25 05/05/2024 BASIC METAB OLIC PANEL (8) carbon dioxide, total 24 mmol/ L 20-29 normal Not Available [facility] ([facility]) [address] [facility] [place], [address], 05/05/2024 08:23:50 05/04/19 25 05/05/2024 BASIC METAB OLIC PANEL (8) calcium 9.4 mg/dL 8.7-10 .2 normal Not Available [facility] ([facility]) [address] [facility], [place], [address], 05/05/2024 08:23:50 05/04/19 25 05/05/2024 SEDIM ENTAT ION RATE- WESTE RGREN sedimentatio n rate-westerg rich 13 mm/HR 0-40 normal Not Available [facility] ([facility]) [address] [facility], [place], [address], 05/05/2024 08:23:51 05/04/19 25 05/05/2024 C-DARIO CTIVE PROTE IN, QUANT C-reactive protein, quant 1 mg/L 0-10 normal Not Available [facility] ([facility]) [address] [facility], [place], [address], 05/05/2024 08:23:51 06/01/19 25 06/01/2024 rapid SARS CoV + SARS CoV 2 Ag, QL IA, respi rator y speci men SARS CoV antigen Positi ve Not Available [address], [address], 06/01/2024 09:05:12 06/01/19 25 06/01/2024 rapid strep group A, throa t Strep negati ve Not Available [address], [address], 06/01/2024 09:05:16 06/01/19 25 06/01/2024 rapid strep group A, throa t Culture No Not Available [address], [address], 06/01/2024 09:05:16 06/01/19 25 06/01/2024 rapid flu (A+B) Flu negati ve Not Available [address], [place], [address], 06/01/2024 09:05:08 06/01/19 25 06/01/2024 rapid flu (A+B) Type Both A & B Not Available [facility] [address] [facility] [address], [place], [address], 06/01/2024 09:05:08 07/19/19 25 07/19/2024 CBC WITH DIFFE RENTI AL/PL ATELE T WBC 6.1 x10e3 /uL 3.4-10 .8 normal Not Available [facility] ([facility]) [address] [place], [address], 07/19/2024 12:21:29 07/19/19 25 07/19/2024 CBC WITH DIFFE RENTI AL/PL ATELE T RBC 4.22 x10e6 /uL 3.77-5 .28 normal Not Available [facility] ([facility]) [address] [place], [address], 07/19/2024 12:21:29 07/19/19 25 07/19/2024 CBC WITH DIFFE RENTI AL/PL ATELE T hemoglobin 13.7 g/dL 11.1-1 5.9 normal Not Available [facility] ([facility]) [address] [place], [address], 07/19/2024 12:21:29 07/19/19 25 07/19/2024 CBC WITH DIFFE RENTI AL/PL ATELE T hematocrit 42.4 % 34.0-4 6.6 normal Not Available [facility] ([facility]) [address] [place], [address], 07/19/2024 12:21:29 07/19/19 25 07/19/2024 CBC WITH DIFFE RENTI AL/PL ATELE T MCV 101 fL 79-97 above high normal Not Available [facility] ([facility]) [address] [facility], [place], [address], 07/19/2024 12:21:29 07/19/19 25 07/19/2024 CBC WITH DIFFE RENTI AL/PL ATELE T MCH 32.5 pg 26.6-3 3.0 normal Not Available [facility] ([facility]) [address] [facility], [place], [address], 07/19/2024 12:21:29 07/19/19 25 07/19/2024 CBC WITH DIFFE RENTI AL/PL ATELE T MCHC 32.3 g/dL 31.5-3 5.7 normal Not Available [facility] ([facility]) [address] [facility], [place], [address], 07/19/2024 12:21:29 07/19/19 25 07/19/2024 CBC WITH DIFFE RENTI AL/PL ATELE T RDW 13.0 % 11.7-1 5.4 Not Available [facility] ([facility]) [address] [place], [address], 07/19/2024 12:21:29 07/19/19 25 07/19/2024 CBC WITH DIFFE RENTI AL/PL ATELE T platelets 341 x10e3 /uL 150-45 0 normal Not Available [facility] ([facility]) [address] [place], [address], 07/19/2024 12:21:29 07/19/19 25 07/19/2024 CBC WITH DIFFE RENTI AL/PL ATELE T neutrophils 55 % not estab. normal Not Available [facility] ([facility]) [address] [place], [address], 07/19/2024 12:21:29 07/19/19 25 07/19/2024 CBC WITH DIFFE RENTI AL/PL ATELE T lymphs 30 % not estab. normal Not Available [facility] ([facility]) [address] [place], [address], 07/19/2024 12:21:29 07/19/19 25 07/19/2024 CBC WITH DIFFE RENTI AL/PL ATELE T monocytes 12 % not estab. normal Not Available [facility] ([facility]) [address] [facility], [place], [address], 07/19/2024 12:21:29 07/19/19 25 07/19/2024 CBC WITH DIFFE RENTI AL/PL ATELE T eos 2 % not estab. normal Not Available [facility] ([facility]) [address] [place], [address], 07/19/2024 12:21:29 07/19/19 25 07/19/2024 CBC WITH DIFFE RENTI AL/PL ATELE T basos 1 % not estab. normal Not Available [facility] ([facility]) [address] [facility], [place], [address], 07/19/2024 12:21:29 07/19/19 25 07/19/2024 CBC WITH DIFFE RENTI AL/PL ATELE T immature cells PERSONNEL CLERK Not Available [facility] ([facility]) [address] [place], [address], 07/19/2024 12:21:29 07/19/19 25 07/19/2024 CBC WITH DIFFE RENTI AL/PL ATELE T neutrophils (absolute) 3.4 x10e3 /uL 1.4-7. 0 normal Not Available [facility] ([facility]) [address] [place], [address], 07/19/2024 12:21:29 07/19/19 25 07/19/2024 CBC WITH DIFFE RENTI AL/PL ATELE T lymphs (absolute) 1.8 x10e3 /uL 0.7-3. 1 normal Not Available [facility] ([facility]) [address] [place], [address], 07/19/2024 12:21:29 07/19/19 25 07/19/2024 CBC WITH DIFFE RENTI AL/PL ATELE T monocytes(ab solute) 0.7 x10e3 /uL 0.1-0. 9 normal Not Available [facility] ([facility]) [address] [facility], [place], [address], 07/19/2024 12:21:29 07/19/19 25 07/19/2024 CBC WITH DIFFE RENTI AL/PL ATELE T eos (absolute) 0.1 x10e3 /uL 0.0-0. 4 normal Not Available [facility] ([facility]) [address] [facility], [place], [address], 07/19/2024 12:21:29 07/19/19 25 07/19/2024 CBC WITH DIFFE RENTI AL/PL ATELE T baso (absolute) 0.0 x10e3 /uL 0.0-0. 2 normal Not Available [facility] ([facility]) [address] [place], [address], 07/19/2024 12:21:29 07/19/19 25 07/19/2024 CBC WITH DIFFE RENTI AL/PL ATELE T immature granulocytes 0 % not estab. Not Available [facility] ([facility]) [address] [place], [address], 07/19/2024 12:21:29 07/19/19 25 07/19/2024 CBC WITH DIFFE RENTI AL/PL ATELE T immature grans (abs) 0.0 x10e3 /uL 0.0-0. 1 Not Available [facility] ([facility]) [address] [place], [address], 07/19/2024 12:21:29 07/19/19 25 07/19/2024 CBC WITH DIFFE RENTI AL/PL ATELE T NRBC PERSONNEL CLERK Not Available [facility] ([facility]) [address] [facility], [place], [address], 07/19/2024 12:21:29 07/19/19 25 07/19/2024 CBC WITH DIFFE YOUSIF AL/RYANN Harris hematology comments: PERSONNEL CLERK Not Available [facility] ([facility]) [address] [facility], [place], [address], 07/19/2024 12:21:29 07/19/19 25 07/19/2024 COMP. METAB OLIC PANEL (14) glucose 84 mg/dL 70-99 normal Not Available [facility] ([facility]) [address] [facility], [place], [address], 07/19/2024 12:21:30 07/19/19 25 07/19/2024 COMP. METAB OLIC PANEL (14) BUN 9 mg/dL 6-24 normal Not Available [facility] ([facility]) [address] [facility], [place], [address], 07/19/2024 12:21:30 07/19/19 25 07/19/2024 COMP. METAB OLIC PANEL (14) creatinine 0.74 mg/dL 0.57-1 .00 normal Not Available [facility] ([facility]) [address] [facility], [place], [address], 07/19/2024 12:21:30 07/19/19 25 07/19/2024 COMP. METAB OLIC PANEL (14) eGFR 98 mL/mi n/1.7 3 >59 normal Not Available [facility] ([facility]) [address] [facility], [place], [address], 07/19/2024 12:21:30 07/19/19 25 07/19/2024 COMP. METAB OLIC PANEL (14) BUN/creatini ne ratio 12 9-23 normal Not Available [facility] ([facility]) [address] [facility], [place], [address], 07/19/2024 12:21:30 07/19/19 25 07/19/2024 COMP. METAB OLIC PANEL (14) sodium 138 mmol/ L 134-14 4 normal Not Available [facility] ([facility]) [address] [facility] [place], [address], 07/19/2024 12:21:30 07/19/19 25 07/19/2024 COMP. METAB OLIC PANEL (14) potassium 4.1 mmol/ L 3.5-5. 2 normal Not Available [facility] ([facility]) [address] [facility] [place], [address], 07/19/2024 12:21:30 07/19/19 25 07/19/2024 COMP. METAB OLIC PANEL (14) chloride 101 mmol/ L 96-106 normal Not Available [facility] ([facility]) [address] [facility] [place], [address], 07/19/2024 12:21:30 07/19/19 25 07/19/2024 COMP. METAB OLIC PANEL (14) carbon dioxide, total 21 mmol/ L 20-29 normal Not Available [facility] ([facility]) [address] [place], [address], 07/19/2024 12:21:30 07/19/19 25 07/19/2024 COMP. METAB OLIC PANEL (14) calcium 9.0 mg/dL 8.7-10 .2 normal Not Available [facility] ([facility]) [address] [place], [address], 07/19/2024 12:21:30 07/19/19 25 07/19/2024 COMP. METAB OLIC PANEL (14) protein, total 6.6 g/dL 6.0-8. 5 normal Not Available [facility] ([facility]) [address] [facility] [place], [address], 07/19/2024 12:21:30 07/19/19 25 07/19/2024 COMP. METAB OLIC PANEL (14) albumin 4.1 g/dL 3.8-4. 9 normal Not Available [facility] ([facility]) [address] [place], [address], 07/19/2024 12:21:30 07/19/19 25 07/19/2024 COMP. METAB OLIC PANEL (14) globulin, total 2.5 g/dL 1.5-4. 5 Not Available [facility] ([facility]) [address] [place], [address], 07/19/2024 12:21:30 07/19/19 25 07/19/2024 COMP. METAB OLIC PANEL (14) bilirubin, total 0.9 mg/dL 0.0-1. 2 normal Not Available [facility] ([facility]) [address] [place], [address], 07/19/2024 12:21:30 07/19/19 25 07/19/2024 COMP. METAB OLIC PANEL (14) alkaline phosphatase 70 IU/L 44-121 normal Not Available [facility] ([facility]) [address] [place], [address], 07/19/2024 12:21:30 07/19/19 25 07/19/2024 COMP. METAB OLIC PANEL (14) AST (SGOT) 17 IU/L 0-40 normal Not Available [facility] ([facility]) [address] [place], [address], 07/19/2024 12:21:30 07/19/19 25 07/19/2024 COMP. METAB OLIC PANEL (14) ALT (SGPT) 15 IU/L 0-32 normal Not Available [facility] ([facility]) [address] [place], [address], 07/19/2024 12:21:30 07/19/19 25 07/19/2024 LIPID PANEL cholesterol, total 204 mg/dL 100-19 9 above high normal Not Available [facility] ([facility]) [address] [place], [address], 07/19/2024 12:21:30 07/19/19 25 07/19/2024 LIPID PANEL triglyceride s 78 mg/dL 0-149 normal Not Available [facility] ([facility]) [address] [place], [address], 07/19/2024 12:21:30 07/19/19 25 07/19/2024 LIPID PANEL HDL cholesterol 74 mg/dL >39 normal Not Available [facility] ([facility]) [address] [place], [address], 07/19/2024 12:21:30 07/19/19 25 07/19/2024 LIPID PANEL VLDL cholesterol param 14 mg/dL 5-40 Not Available [facility] ([facility]) [address] [place], [address], 07/19/2024 12:21:30 07/19/19 25 07/19/2024 LIPID PANEL LDL chol calc (rust) 116 mg/dL 0-99 above high normal Not Available [facility] ([facility]) [address] [place], [address], 07/19/2024 12:21:30 07/19/19 25 07/19/2024 LIPID PANEL LDL calc comment: PERSONNEL CLERK Not Available [facility] ([facility]) [address] [place], [address], 07/19/2024 12:21:30 07/19/19 25 07/20/2024 VITAM IN B12 AND FOLAT E vitamin B12 436 pg/mL 232-12 45 normal Not Available [facility] ([facility]) [address] [place], [address], 07/20/2024 12:23:13 07/19/19 25 07/20/2024 VITAM IN B12 AND FOLAT E folate (folic acid), serum 15.6 NG/mL >3.0 normal A serum folat e gin ntrat ion of less than 3.1 ng/mL is consi dered to repre sent clini param defic iency . Not Available [facility] ([facility]) [address] [facility], [place], [address], 07/20/2024 12:23:13 07/19/1907/19/2024 DIXON EN AUTHO RIZAT ION written authorizatio n Commen t Dixon en Autho rizat ion Recei mary. Autho rizat ion recei mary from [employer] [address] 07-19 Logge d by Rocky Zimmerman an Not Available [facility] ([facility]) [address] [facility], [place], [address], 07/20/2024 12:23:14 12/23/1912/23/2024 RENAL PANEL (10) glucose 137 mg/dL 70-99 above high normal Not Available [facility] ([facility]) [address] [facility], [place], [address], 12/23/2024 08:26:28 12/23/19 25 12/23/2024 RENAL PANEL (10) BUN 10 mg/dL 6-24 normal Not Available [facility] ([facility]) [address] [place], [address], 12/23/2024 08:26:28 12/23/1912/23/2024 RENAL PANEL (10) creatinine 0.75 mg/dL 0.57-1 .00 normal Not Available [facility] ([facility]) [address] [place], [address], 12/23/2024 08:26:28 12/23/19 25 12/23/2024 RENAL PANEL (10) eGFR 96 mL/mi n/1.7 3 >59 normal Not Available [facility] ([facility]) [address] [place], [address], 12/23/2024 08:26:28 12/23/19 25 12/23/2024 RENAL PANEL (10) BUN/creatini ne ratio 13 9-23 normal Not Available [facility] ([facility]) [address] [facility] [place], [address], 12/23/2024 08:26:28 12/23/19 25 12/23/2024 RENAL PANEL (10) sodium 136 mmol/ L 134-14 4 normal Not Available [facility] ([facility]) [address] [facility] [place], [address], 12/23/2024 08:26:28 12/23/19 25 12/23/2024 RENAL PANEL (10) potassium 3.3 mmol/ L 3.5-5. 2 below low normal Not Available [facility] ([facility]) [address] [facility] [place], [address], 12/23/2024 08:26:28 12/23/19 25 12/23/2024 RENAL PANEL (10) chloride 99 mmol/ L 96-106 normal Not Available [facility] ([facility]) [address] [facility] [place], [address], 12/23/2024 08:26:28 12/23/19 25 12/23/2024 RENAL PANEL (10) carbon dioxide, total 22 mmol/ L 20-29 normal Not Available [facility] ([facility]) [address] [facility] [place], [address], 12/23/2024 08:26:28 12/23/19 25 12/23/2024 RENAL PANEL (10) calcium 9.3 mg/dL 8.7-10 .2 normal Not Available [facility] ([facility]) [address] [place], [address], 12/23/2024 08:26:28 12/23/19 25 12/23/2024 RENAL PANEL (10) phosphorus 3.2 mg/dL 3.0-4. 3 normal Not Available [facility] ([facility]) [address] [place], [address], 12/23/2024 08:26:28 12/23/19 25 12/23/2024 RENAL PANEL (10) albumin 4.2 g/dL 3.8-4. 9 normal Not Available [facility] ([facility]) [address] [facility], [place], [address], 12/23/2024 08:26:28 12/23/19 25 12/23/2024 MAGNE SIUM magnesium 2.0 mg/dL 1.6-2. 3 normal Not Available [facility] ([facility]) [address] [facility], [place], [address], 12/23/2024 08:26:28 01/25/20 25 01/25/2025 CBC WITH DIFFE RENTI AL/PL ATELE T WBC 6.8 x10e3 /uL 3.4-10 .8 normal Not Available [facility] ([facility]) [address] [place], [address], 01/25/2025 08:26:50 01/25/20 25 01/25/2025 CBC WITH DIFFE RENTI AL/PL ATELE T RBC 4.11 x10e6 /uL 3.77-5 .28 normal Not Available [facility] ([facility]) [address] [place], [address], 01/25/2025 08:26:50 01/25/20 25 01/25/2025 CBC WITH DIFFE RENTI AL/PL ATELE T hemoglobin 13.3 g/dL 11.1-1 5.9 normal Not Available [facility] ([facility]) [address] [place], [address], 01/25/2025 08:26:50 01/25/20 25 01/25/2025 CBC WITH DIFFE RENTI AL/PL ATELE T hematocrit 40.4 % 34.0-4 6.6 normal Not Available [facility] ([facility]) [address] [facility], [place], [address], 01/25/2025 08:26:50 01/25/20 25 01/25/2025 CBC WITH DIFFE RENTI AL/PL ATELE T MCV 98 fL 79-97 above high normal Not Available [facility] ([facility]) [address] [facility], [place], [address], 01/25/2025 08:26:50 01/25/20 25 01/25/2025 CBC WITH DIFFE RENTI AL/PL ATELE T MCH 32.4 pg 26.6-3 3.0 normal Not Available [facility] ([facility]) [address] [facility], [place], [address], 01/25/2025 08:26:50 01/25/20 25 01/25/2025 CBC WITH DIFFE RENTI AL/PL ATELE T MCHC 32.9 g/dL 31.5-3 5.7 normal Not Available [facility] ([facility]) [address] [place], [address], 01/25/2025 08:26:50 01/25/20 25 01/25/2025 CBC WITH DIFFE RENTI AL/PL ATELE T RDW 11.8 % 11.7-1 5.4 Not Available [facility] ([facility]) [address] [facility], [place], [address], 01/25/2025 08:26:50 01/25/20 25 01/25/2025 CBC WITH DIFFE RENTI AL/PL ATELE T platelets 308 x10e3 /uL 150-45 0 normal Not Available [facility] ([facility]) [address] [place], [address], 01/25/2025 08:26:50 01/25/20 25 01/25/2025 CBC WITH DIFFE RENTI AL/PL ATELE T neutrophils 55 % not estab. normal Not Available [facility] ([facility]) [address] [facility], [place], [address], 01/25/2025 08:26:50 01/25/20 25 01/25/2025 CBC WITH DIFFE RENTI AL/PL ATELE T lymphs 32 % not estab. normal Not Available [facility] ([facility]) [address] [place], [address], 01/25/2025 08:26:50 01/25/20 25 01/25/2025 CBC WITH DIFFE RENTI AL/PL ATELE T monocytes 11 % not estab. normal Not Available [facility] ([facility]) [address] [facility], [place], [address], 01/25/2025 08:26:50 01/25/20 25 01/25/2025 CBC WITH DIFFE RENTI AL/PL ATELE T eos 1 % not estab. normal Not Available [facility] ([facility]) [address] [facility], [place], [address], 01/25/2025 08:26:50 01/25/20 25 01/25/2025 CBC WITH DIFFE RENTI AL/PL ATELE T basos 1 % not estab. normal Not Available [facility] ([facility]) [address] [place], [address], 01/25/2025 08:26:50 01/25/20 25 01/25/2025 CBC WITH DIFFE RENTI AL/PL ATELE T immature cells PERSONNEL CLERK Not Available [facility] ([facility]) [address] [facility], [place], [address], 01/25/2025 08:26:50 01/25/20 25 01/25/2025 CBC WITH DIFFE RENTI AL/PL ATELE T neutrophils (absolute) 3.7 x10e3 /uL 1.4-7. 0 normal Not Available [facility] ([facility]) [address] [place], [address], 01/25/2025 08:26:50 01/25/20 25 01/25/2025 CBC WITH DIFFE RENTI AL/PL ATELE T lymphs (absolute) 2.2 x10e3 /uL 0.7-3. 1 normal Not Available [facility] ([facility]) [address] [facility], [place], [address], 01/25/2025 08:26:50 01/25/20 25 01/25/2025 CBC WITH DIFFE RENTI AL/PL ATELE T monocytes(ab solute) 0.8 x10e3 /uL 0.1-0. 9 normal Not Available [facility] ([facility]) [address] [place], [address], 01/25/2025 08:26:50 01/25/20 25 01/25/2025 CBC WITH DIFFE RENTI AL/PL ATELE T eos (absolute) 0.1 x10e3 /uL 0.0-0. 4 normal Not Available [facility] ([facility]) [address] [place], [address], 01/25/2025 08:26:50 01/25/20 25 01/25/2025 CBC WITH DIFFE RENTI AL/PL ATELE T baso (absolute) 0.0 x10e3 /uL 0.0-0. 2 normal Not Available [facility] ([facility]) [address] [facility], [place], [address], 01/25/2025 08:26:50 01/25/20 25 01/25/2025 CBC WITH DIFFE RENTI AL/PL ATELE T immature granulocytes 0 % not estab. Not Available [facility] ([facility]) [address] [place], [address], 01/25/2025 08:26:50 01/25/20 25 01/25/2025 CBC WITH DIFFE RENTI AL/PL ATELE T immature grans (abs) 0.0 x10e3 /uL 0.0-0. 1 Not Available [facility] ([facility]) [address], [place], [address], 01/25/2025 08:26:50 01/25/20 25 01/25/2025 CBC WITH DIFFE RENTI AL/PL ATELE T NRBC PERSONNEL CLERK Not Available [facility] ([facility]) [address], [place], [address], 01/25/2025 08:26:50 01/25/20 25 01/25/2025 CBC WITH DIFFE RENTI AL/PL ATELE T hematology comments: PERSONNEL CLERK Not Available [facility] ([facility]) [address], [place], [address], 01/25/2025 08:26:50 01/25/20 25 01/25/2025 COMP. METAB OLIC PANEL (14) glucose 95 mg/dL 70-99 normal Not Available [facility] ([facility]) [address], [place], [address], 01/25/2025 08:26:50 01/25/20 25 01/25/2025 COMP. METAB OLIC PANEL (14) BUN 10 mg/dL 6-24 normal Not Available [facility] ([facility]) [address] [facility], [place], [address], 01/25/2025 08:26:50 01/25/20 25 01/25/2025 COMP. METAB OLIC PANEL (14) creatinine 0.76 mg/dL 0.57-1 .00 normal Not Available [facility] ([facility]) [address] [facility] [place], [address], 01/25/2025 08:26:50 01/25/20 25 01/25/2025 COMP. METAB OLIC PANEL (14) eGFR 95 mL/mi n/1.7 3 >59 normal Not Available [facility] ([facility]) [address] [facility] [place], [address], 01/25/2025 08:26:50 01/25/20 25 01/25/2025 COMP. METAB OLIC PANEL (14) BUN/creatini ne ratio 13 9-23 normal Not Available [facility] ([facility]) [address] [facility], [place], [address], 01/25/2025 08:26:50 01/25/20 25 01/25/2025 COMP. METAB OLIC PANEL (14) sodium 137 mmol/ L 134-14 4 normal Not Available [facility] ([facility]) [address] [facility], [place], [address], 01/25/2025 08:26:50 01/25/20 25 01/25/2025 COMP. METAB OLIC PANEL (14) potassium 3.9 mmol/ L 3.5-5. 2 normal Not Available [facility] ([facility]) [address] [facility], [place], [address], 01/25/2025 08:26:50 01/25/20 25 01/25/2025 COMP. METAB OLIC PANEL (14) chloride 99 mmol/ L 96-106 normal Not Available [facility] ([facility]) [address] [place], [address], 01/25/2025 08:26:50 01/25/20 25 01/25/2025 COMP. METAB OLIC PANEL (14) carbon dioxide, total 22 mmol/ L 20-29 normal Not Available [facility] ([facility]) [address] [place], [address], 01/25/2025 08:26:50 01/25/20 25 01/25/2025 COMP. METAB OLIC PANEL (14) calcium 9.3 mg/dL 8.7-10 .2 normal Not Available [facility] ([facility]) [address] [facility], [place], [address], 01/25/2025 08:26:50 01/25/20 25 01/25/2025 COMP. METAB OLIC PANEL (14) protein, total 6.8 g/dL 6.0-8. 5 normal Not Available [facility] ([facility]) [address] [place], [address], 01/25/2025 08:26:50 01/25/20 25 01/25/2025 COMP. METAB OLIC PANEL (14) albumin 4.2 g/dL 3.8-4. 9 normal Not Available [facility] ([facility]) [address] [place], [address], 01/25/2025 08:26:50 01/25/20 25 01/25/2025 COMP. METAB OLIC PANEL (14) globulin, total 2.6 g/dL 1.5-4. 5 Not Available [facility] ([facility]) [address] [place], [address], 01/25/2025 08:26:50 01/25/20 25 01/25/2025 COMP. METAB OLIC PANEL (14) bilirubin, total 1.3 mg/dL 0.0-1. 2 above high normal Not Available [facility] ([facility]) [address] [place], [address], 01/25/2025 08:26:50 01/25/20 25 01/25/2025 COMP. METAB OLIC PANEL (14) alkaline phosphatase 73 IU/L 49-135 normal Not Available [facility] ([facility]) [address] [place], [address], 01/25/2025 08:26:50 01/25/20 25 01/25/2025 COMP. METAB OLIC PANEL (14) AST (SGOT) 17 IU/L 0-40 normal Not Available [facility] ([facility]) [address] [place], [address], 01/25/2025 08:26:50 01/25/20 25 01/25/2025 COMP. METAB OLIC PANEL (14) ALT (SGPT) 17 IU/L 0-32 normal Not Available [facility] ([facility]) [address] [place], [address], 01/25/2025 08:26:50 01/25/20 25 01/25/2025 LIPID PANEL cholesterol, total 205 mg/dL 100-19 9 above high normal Not Available [facility] ([facility]) [address] [place], [address], 01/25/2025 08:26:50 01/25/20 25 01/25/2025 LIPID PANEL triglyceride s 101 mg/dL 0-149 normal Not Available [facility] ([facility]) [address] [place], [address], 01/25/2025 08:26:50 01/25/20 25 01/25/2025 LIPID PANEL HDL cholesterol 54 mg/dL >39 normal Not Available [facility] ([facility]) [address] [place], [address], 01/25/2025 08:26:50 01/25/20 25 01/25/2025 LIPID PANEL VLDL cholesterol param 18 mg/dL 5-40 Not Available [facility] ([facility]) [address] [place], [address], 01/25/2025 08:26:50 01/25/20 25 01/25/2025 LIPID PANEL LDL chol calc (rust) 133 mg/dL 0-99 above high normal Not Available [facility] ([facility]) [address] [place], [address], 01/25/2025 08:26:50 01/25/20 25 01/25/2025 LIPID PANEL LDL calc comment: PERSONNEL CLERK Not Available [facility] ([facility]) [address] [place], [address], 01/25/2025 08:26:50 05/02/19 25 04/27/2024 elect rocar diogr am No observ ation record ed. BARCODE [facility] [address], [place], [address], 05/02/2024 15:13:03 05/04/19 CT, head, w/o contr ast No observ ation record ed. [email or web address] [address], [place], [address], 05/04/2024 14:19:23 05/19/19 25 05/19/2024 MRI, head, w/o contr ast No observ ation record ed. [email or web address] [facility] (Scheduling) [address], [place], [address], 05/26/2024 11:04:24 05/25/19 25 05/19/2024 MRI, head, w/o contr ast No observ ation record ed. [facility] [address], [place], [address], 05/26/2024 08:51:24 12/23/19 25 12/27/2024 elect rocar diogr am No observ ation record ed. [facility] [address], [place], [address], 12/27/2024 13:54:52 12/24/19 25 12/22/2024 elect rocar diogr am No observ ation record ed. BARCODE [address], [place], [address], 12/23/2024 11:31:23 02/02/20 25 01/31/2025 cardi ac stres s test No observ ation record ed. [email or web address] [facility] [address], [place], [address], 02/01/2025 16:22:58 Result Notes None recorded. Problems Name Problem SNOMED Code Status Onset Date Resolution Date Notes Provider Name and Address Organization Details Recorded Time Exposure to SARS-CoV -2 Completed 07/03/2020 Removal Reason: Problem added by user kayla collado from the COVID-19 watch flag Amara Pedraza null, [place] - [facility] 1 08:23:57 Hyperten sive disorder 88115943 Active 2018 Octavia Rojo null, [place] - [facility] 9 08:51:29 Anxiety 95089822 Active 2018 Octavia Rojo null, [place] - [facility] 9 08:51:35 Depressi ve disorder 65716096 Active 2018 Octavia Rojo null, [place] - [facility] 9 08:51:40 Inguinal lymphade nopathy 059967114 Completed 201905/29/2021 Jane Franco APRN [address], [place], [address] , [place] - [facility] 2 15:54:19 Uterine leiomyom a 65654096 Active 2019 Jane Franco APRN [address], [place], [address] , [place] - [facility] 0 12:48:28 Endometr ium thickene d 144801553 Completed 201912/25/2019 Noreen Segura MD [address], [place], [address] , [place] - [facility] 0 18:23:33 Menorrha cristóbal 949708978 Completed 201905/29/2021 Jane Franco APRN [address], [place], [address] , [place] - [facility] 3 15:27:49 Enlarged uterus 803412286 Completed 201912/25/2019 Noreen Segura MD [address], [place], [address] , [place] - [facility] 0 18:23:38 Polyp of corpus uteri 72526807 Completed 201905/29/2021 Jane Franco APRN [address], [place], [address] , [place] - [facility] 2 15:54:15 Crying associat ed with mood 235179448 Completed 202108/11/2022 Jane Franco APRN [address], [place], [address] , [place] [facility] 3 08:25:06 Night sweats 42395066 Active 2021 Jane Franco WELL TESTING OPERATOR [address], [place], [address] , [place] [facility] 2 15:55:33 Body mass index 30+ - obesity 360555740 Active 2021 Jane Franco WELL TESTING OPERATOR [address], [place], [address] , [place] [facility] 2 15:55:42 Mammogra phy abnormal 235316452 Active 2022 Possible evolving focal symmetry left breast. Recommen d spot compress ion tomograp hy in the cc view, true lateral tomogram , and sonograp hic evaluati on-6 mm hypoecho ic nodule superfic ially at the 4 o'clock position of the left breast-b x schedule d 06/19/22- stromal sclerosi s and FBC; no atypia or malignan cy Jane Franco WELL TESTING OPERATOR [address], [place], [address] , [place] [facility] 3 17:01:57 Menorrha cristóbal 622904732 Active 2022 Jane LópezckerBERNA [address], [place], [address] , [place] [facility] 3 15:27:49 Anemia 293558187 Active 2022 Jane SalvadorBERNA thomas [address], [place], [address] , [place] [facility] 3 15:27:53 Dysmenor tobi 150539412 Active 2022 Jane SalvadorBERNA thomas [address], [place], [address] , [place] [facility] 3 15:27:55 Cough 43851086 Active 2022 Xiomara Easley PA-C [address], [place], [address] , [place] - [facility] 3 11:18:54 COVID-19 622512590 Active 2024 Xiomara Easley PA-C [address], [place], [address] , [place] - [facility] 5 09:31:09 Problem Notes None recorded. Procedures Surgical History Date Name Laterality Status Provider Name and Address Organization Details Recorded Time 06/20/19 Breast Biopsy completed Jane Franco APRN [address], [place], [address], [place] - [facility] 06/23/2022 17:02:18 05/30/19 23 Date of Last Mammogram completed Jane Franco APRN [address], [place], [address], [place] - [facility] 06/02/2022 16:41:04 05/29/19 22 Date of Last Pap Smear completed Jane Franco APRN [address], [place], [address], [place] - [facility] 06/03/2021 11:55:05 02/01/20 21 Date of Last Colonoscopy completed Bethany Scales [place] - [facility] 05/29/2021 09:46:27 12/08/19 20 hysteroscopy completed Amara Pedraza [place] - [facility] 12/25/2020 08:17:25 12/29/19 13 Tubal Ligation completed Brendantrino Milo [place] - [facility] 12/25/2020 08:17:25 07/17/19 01 Caesarean Section completed Amara Hernandezall [place] - [facility] 12/25/2020 08:17:25 Tubal Ligation [...] Name and Address Organization Details Recorded Time 873641 doxycycli ne Not available rash Not available Not available 11/18/2022 3640 RxNorm [place] - [facility] 3 14:19:58 51465 amoxicill in trihydrat e medicatio n hives Not available Not available 01/11/20162007 35187 8 RxNorm React ion: Hives ; Comme nt: amoxi cilli n; Not Available [facility] 6 09:16:35 Medications Name Sig Start [...] 16;Indic ation: Vulvovag inal Candidia sis - (1121 );Phar macyVeri fied: 06/22/19 16 10:47AM Not Available [...] % 96 % 144/86 mm[Hg] Kari Mancini [facility] 5 14:47:42 Date Recorded Body height Respiratory rate Pain severity - 0-10 verbal numeric rating [Score] - Reported Body temperature Heart rate Oxygen saturation Oxygen saturation in Arterial blood by Pulse oximetry Systolic And Diastolic Provider Name and Address Organization Details Last Updated DateTime 5 167.64 cm 14 /min 0 99.2 [degF] 82 /min 99 % 99 % 152/94 mm[Hg] Kari Mancini [facility] 5 14:09:37 Date Recorded Body height Respiratory rate Pain severity - 0-10 verbal numeric rating [Score] - Reported Body mass index (BMI) Body weight Body temperature Heart rate Oxygen saturation Oxygen saturation in Arterial blood by Pulse oximetry Systolic And Diastolic Provider Name and Address Organization Details Last Updated DateTime 5 167.64 cm 14 /min 0 29.9 kg/m2 75394.6 9 g 98.2 [degF] 80 /min 98 % 98 % 130/72 mm[Hg] Kari Mancini [facility] 5 10:02:51 Social History Question Answer Notes LastModified by Organizat ion Details LastModified Time Tobacco Smoking Status [facility] 08:54:17 Do You Have An Advance Directive? Yes Information not available 06/25/2018 How Many Years Have You Consumed Alcohol? 25 [email or web address] Information not available 12/25/2020 Are You Blind Or Do You Have Difficulty Seeing? No [email or web address] Information not available 06/19/2022 Is Blood Transfusion [...] Or The Highest Degree You Have Received? [id number] [email or web address] Information not available 12/25/2020 Have There Been Any Changes To Your Family Or Social Situation? No Information no t available 08/08/2022 What Is The Fluoride Status Of Your Home? Fluoridated Information not available 08/08/2022 Have You Recently Or Are You Planning To Travel To An Area With Zika Virus? No Information not available 08/08/2022 Live Alone Or With Others? With Others [email or web address] Information not available 06/19/2022 Last Menstrual Period? 07/27/2022 Information not available 08/08/2022 Do You Have A Medical Power Of Steward/Stewardess Smoke Room? No Information not available 08/08/2022 What Was The Date Of Your Most Recent Tobacco Screening? 01/24/2025 [email or web address] Information not available 01/24/2025 How Many Children Do You Have? 3 Information not available 06/25/2018 Performs Monthly Self-breast Exam? No [email or web address] Information no t available 06/19/2022 Do You Use Protection During Sex? Always Information not available 08/08/2022 Do You Use Protection Against STDs? No [email or web address] Information not available 06/19/2022 What Is Your Relationship Status? Information not available 06/25/2018 Do You Use Your Seat Belt Or Car Seat Routinely? Yes [email or web address] Information not available 12/25/2020 Seat Belts Used Routinely Yes Information not available 06/19/2022 Are You Sexually Active? Yes [email or web address] Information not available 02/15/2021 Do You Have Smoke And Carbon Monoxide Detectors In Your Home? Yes Information not available 12/25/2020 Are You Passively Exposed To Smoke? No [email or web address] Information no t available 12/25/2020 How Much Tobacco Do You Smoke? No [email or web address] Information not available 06/19/2022 Do You Use Sunscreen Routinely? Yes Information not available 06/25/2018 Has Tobacco Cessation Counseling Been Provided? No Information not available 08/08/2022 Do You Have Difficulty Walking Or Climbing Stairs? No [email or web address] Information not available 06/19/2022 What Contraceptive Method [...] used smokeless tobacco? Never used smokeless tobacco [email or web address] Information not available 07/18/2019 Are you currently employed? Yes [email or web address] Information not available 12/25/2020 Do you have transportation difficulties? No Information not available 08/08/2022 Urinary incontinence assessment performed? No [email or web address] Information not available 06/19/2022 Are you able to care for yourself independently? Yes [email or web address] Information not available 12/25/2020 Do you have difficulty dressing, bathing, grooming, or toileting? No [email or web address] Information not available 06/19/2022 Do you or have you ever used e-cigarettes or vape? Never used electronic cigarettes [email or web address] Information not available 07/18/2019 What is your exercise level? Occasional Information not available 06/25/2018 Do you use any illicit or recreational drugs? No Information not available 08/08/2022 Do you or have you ever used any other forms of tobacco or nicotine? No Information not available 08/08/2022 What is your level of alcohol consumption? Moderate [email or web address] Information not available 12/25/2020 What is your status? Not Information no t available 08/08/2022 Are you able to walk independently without assistance or assistive devices? YESWOREST [email or web address] Information not available 06/19/2022 Do you have difficulty doing errands alone? No [email or web address] Information not available 06/19/2022 What is your occupation? [employer] Information not available 06/25/2018 Mental Status Question Answer Note LastModified by Organizat ion Details LastModified Time Do you feel stressed (tense, restless, nervous, or anxious, or unable to sleep at night)? [id number] [email or web address] Information not available 12/25/2020 Do you have difficulty concentrating, remembering or making decisions? No [email or web address] Information no t available 06/19/2022 Family History Relationship Description Onset Age of this Age Resolved Age Notes LastModified by Organization Details LastModified Time Maternal Grandmother Cerebrovascu lar accident ntarter Not available 08:53:33 Maternal Grandmother Hypertensive disorder ntarter Not available 2018 08:53:59 Brother Diabetes mellitus [email or web address] Not available 09:09:30 Maternal Grandfather Hypertensive disorder [email or web address] Not available 12/06 08:17:03 Mother Hypertensive disorder ntarter Not available 2018 08:53:59 Mother Disorder of thyroid gland ntarter Not available 2018 08:54:10 Mother Heart disease 16 [email or web address] Not available 12/06 08:17:03 Mother Arthritis [email or web address] Not avail able 12/25/2020 08:17:03 Father Hypercholest erolemia [email or web address] Not available 12/06 08:17:03 Father Hypertensive disorder [email or web address] Not available 12/06 08:17:03 Maternal Uncle Diabetes mellitus [email or web address] Not available 09:09:30 Medical History Condition Response Depression Y Anxiety Disorder Y Acid Reflux (GERD) Y AIDS/HIV N Allergies/Hayfever Y ADD/ADHD N Hypertension Y Gynecological History Statement/Question Response [...] preservative 07/18/19 20 cancelled patient objection Jane Franco APRN [address], [place], [address], [place] [facility] 07/18/2019 16:43:45 Influenza, split virus, quadrivalent, PF 12/26/19 21 completed Amara villaseñor [place] - [facility] 01/08/2021 13:40:47 COVID-19, mRNA, LNP-S, PF, 100 mcg/0.5mL dose or 50 mcg/0.25mL dose 04/19/19 22 completed Davonte Smith PA-C [address], [place], [address], [place] [facility] 04/19/2021 11:19:06 Tdap 06/25/19 22 completed Amara Pedraza [place], [place] - [facility] 06/24/2021 09:29:49 Influenza, split virus, quadrivalent, PF 01/13/20 23 completed Davonte Smith PA-C [address], [place], [address], [place] [facility] 01/12/2023 15:32:57 Influenza, split virus, trivalent, preservative 01/25/20 24 completed Xiomara Spivey PA-C [address], [place], [address], [place] [facility] 01/25/2024 15:25:34 COVID-19, mRNA, LNP-S, PF, 100 mcg/0.5mL dose or 50 mcg/0.25mL dose 06/13/19 21 completed Tiffanie Coats [place], [place] - [facility] 08/08/2022 14:58:26 COVID-19, mRNA, LNP-S, PF, 100 mcg/0.5mL dose or 50 mcg/0.25mL dose 07/11/19 21 completed Tiffanie Coats null, [place] - [facility] 08/08/2022 14:58:26 Past Encounters Encounter ID Performer Location Encounter Start Date Encounter Closed Date Diagnosis/Indication Diagnosis SNOMED-CT Code Diagnosis ICD10 Code Diagnosis IMO Codes Diagnosis Note [id number] [facility] [address] [place] [address] 08/10/2014 00:00:00 [id number] [facility] [address] [place] [address] 06/22/2015 00:00:00 [id number] [facility] [address] [place] [address] 07/09/2015 00:00:00 [id number] [facility] [address] [place] [address] 08/13/2015 00:00:00 [id number] [facility] [address] [place] [address] 11/03/2005 00:00:00 [id number] [facility] [address] [place] [address] 11/06/2006 00:00:00 [id number] [facility] [address] [place] [address] 05/04/2007 00:00:00 [id number] [facility] [address] [place] [address] 09/21/2008 00:00:00 [id number] [facility] [address] [place] [address] [address] 11/09/2009 00:00:00 [id number] [facility] [address] [place] [address] 01/21/2010 00:00:00 [id number] [facility] [address] [place] [address] 02/08/2010 00:00:00 [id number] [facility] [address] [place] [address] 04/22/2010 00:00:00 [id number] [facility] [address] [place] [address] 12/02/2010 00:00:00 [id number] [facility] [address] [place] [address] 12/10/2011 00:00:00 [id number] [facility] [address] [place] [address] 05/17/2012 00:00:00 [id number] [facility] [address] [place] [address] 06/15/2012 00:00:00 [id number] [facility] [address] [place] [address] 01/13/2013 00:00:00 [id number] [facility] [address] [place] [address] 02/17/2013 00:00:00 [id number] [facility] [address] [place] [address] 04/22/2013 00:00:00 [id number] [facility] [address] [place] [address] 05/27/2013 00:00:00 [id number] [facility] [address] [place] [address] 06/22/2013 00:00:00 [id number] [facility] [address] [place] [address] 09/07/2013 00:00:00 [id number] BERNA Ureña DIRECTOR [employer] [address] [place] [address] [place] [address] 06/25/2018 08:34:36 06/25/2018 09:36:45 Routine gynecologic examination done 8370271919 9101 Z01.419 Depression screening 171 295111 Z13.89 Hypertensi on screening 457313188 Z13.6 Screening for malignant neoplasm of cervix 710787870 Z12.4 Diet education 43608817 Z71.3 Encourage healthy eating/dec reased fats, sugars, fried foods Counseling 922593605 Z71 .82 Encouraged regular exercise 30-40min/d ay 4-5 days/wk Body mass index 25-29 - overweight 634345764 Z68.28 Hypertensive disorder 38 977027 I10 [id number] BERNA Ureña DIRECTOR [employer] [address] [place] [address] [place] [address] 02/04/2019 13:56:30 02/04/2019 14:26:48 Cyst of right ovary 8132561009 1981293 N83.185 [id number] BERNA Ureña DIRECTOR [employer] [address] [place] [address] [place] [address] 02/07/2019 10:59:15 02/07/2019 11:25:32 Cyst of right ovary 2986215443 7832914 N83.847 [id number] BERNA Ureña [employer]OR [employer] [address] [place] [address] [place] [address] 07/18/2019 14:51:50 07/18/2019 16:22:47 Routine gynecologic examination done 6295746329 9101 Z01.419 Depression screening 171 149388 Z13.89 Diet education 16269718 Z71.3 Encourage healthy eating/dec reased fats, sugars, fried foods Counseling 303557863 Z71 .82 Encouraged regular exercise 30-40min/d ay 4-5 days/wk Administra tion of influenza vaccine 73636388 Z23 Examinatio n of blood pressure 731218499 Z01.30 Body mass index 25-29 - overweight 144429482 Z68.28 Hypertensive disorder 38 345720 I10 Depressive disorder 3548 9007 F32.9 Screening for malignant neoplasm of breast 777702218 Z12.39 Menorrhagia 756341435 N9 2.0 [id number] BERNA Ureña [employer]OR [employer] [address] [place] [address] [place] [address] 11/23/2019 14:08:12 11/23/2019 15:04:20 Inguinal lymphadenopathy 729771438 R59.0 [id number] BERNA Ureña [employer]OR [employer] [address] [place] [address] [place] [address] 11/25/2019 09:46:19 11/25/2019 10:14:01 Inguinal lymphadenopathy 445830949 R59.0 Uterine leiomyoma 440137 05 D25.9 Endometrium thickened 44 9907387 R93.89 Enlarged uterus 70291056 4 N85.2 [id number] MD Gloria Carias [employer]OR [employer] [address] [place] [address] [place] [address] 12/06/2019 14:55:58 12/06/2019 16:00:02 Pre-surgery evaluation 985097611 Z01.818 Abnormal u terine bleeding 0931372572 9100 N93.9 Inguinal lymphadenopathy 006501944 R59.0 Uterine leiomyoma 105776 05 D25.9 [id number] MD Gloria Carias [employer]OR [employer] [address] [place] [address] [place] [address] 12/23/2019 13:20:35 12/23/2019 13:42:19 Postoperative visit 936114382 Z09 Abnormal u terine bleeding 8942179749 9100 N93.9 Polyp of corpus uteri 11 998948 N84.0 Uterine leiomyoma 491488 05 D25.9 [id number] ALISON Augustin [address] [address] 07/03/2020 08:23:20 07/03/2020 09:08:35 Headache 55732523 R51.9 went over to push fluids. tylenol, Ibuprofen. Went over to hold Ibuprofen. Acute sinusitis 65397186 J01.90 Long-term current use of drug therapy 764765226 Z79.570 [id number] Davonte Smith PA-C [address] [address] 12/05/2020 13:31:08 12/05/2020 14:13:52 Congestion of nasal sinus 68516571 R09.81 -new Pain in throat 879556709 R07.0 -new [id number] Xiomara Spivey PA-C [address] [address] 12/25/2020 08:16:04 12/25/2020 08:52:12 Depressive disorder 76524191 F32.9 stable. Anxiety 68015739 F41.9 stable Hypertensive disorder 38 355703 I10 stable Screening mammography 24 467191 Z12.31 pt had at [facility] . last was normal per pt was with in the year. Screening for malignant neoplasm of colon 701370599 Z12.11 pt will do cologuard. Administra tion of influenza vaccine 62418243 Z23 Taking med ication for chronic disease 1468061004 57555 Z79.899 Fatigue 25562093 R53.83 Vitamin D deficiency 347 41613 E55.9 last level was 39 in old system. PT takes OTC Vit D. [id number] ALISON Augustin [address] [address] 02/15/2021 09:02:51 02/15/2021 09:47:28 Cough 35675006 R05.9 pt did not want chest xray Dyspnea 490747316 R06.00 push fluids, steam will help. gave inhaler. Acute sinusitis 83227004 J01.90 Long-term drug therapy 780635026 Z79.899 chronic conditons are stable. pt did not need refills. Sinusitis 88265119 J32.9 push fluids, steam will help. [id number] ALISON Augustin [address] [address] 03/06/2021 15:16:17 03/06/2021 15:37:22 Allergic rhinitis 90390131 J30.9 went over to take claritin. use mucinex. Acute sinusitis 28466067 J01.90 gave pred and different antibiotic . went over to eat yogurt. Pruritic rash 42618637 L 28.2 continue steroid cream. [id number] ALISON Augustin [address] [address] 04/19/2021 11:02:47 04/19/2021 11:41:53 Administration of SARS-CoV-2 antigen vaccine 805166315 Z23 [id number] Jane Franco APRN [place] [employer] [address] [place] [address] [place] [address] 05/29/2021 09:37:17 05/29/2021 10:53:18 Routine gynecologic examination done 0775122070 9101 Z01.419 Depression screening 171 860643 Z13.89 Screening for malignant neoplasm of cervix 304081698 Z12.4 Diet education 75689940 Z71.3 Encourage healthy eating/dec reased fats, sugars, fried foods Counseling 466398855 Z71 .82 Encouraged regular exercise 30-40min/d ay 4-5 days/wk Examinatio n of blood pressure 930317398 Z01.30 Anxiety 15480031 F41.9 Hypertensive disorder 38 619435 I10 Crying ass ociated with mood 725777288 R45.89 Night sweats 15387397 R6 1 Body mass index 30+ - obesity 282497727 Z68.30 [id number] ALISON Augustin [address] [address] 06/24/2021 09:02:44 06/24/2021 09:29:31 Anxiety 80649867 F41.9 stable Body mass index 30+ - obesity 900953185 Z68.30 30.8 Depressive disorder 3548 9007 F32.9 stable. Hypertensive disorder 38 838124 I10 stable Screening mammography 24 165218 Z12.31 pt had at [facility] . we have in chart. Screening for malignant neoplasm of cervix 267291030 Z12.4 pt has done this with Jane, in chart. Screening for malignant neoplasm of colon 197144332 Z12.11 pt did cologuard in Uterine leiomyoma 110926 05 D25.9 pt sees jane. Viral screening 39312501 4 Z11.59 Taking med ication for chronic disease 8398178896 89103 Z79.899 chronic conditions are stable. gave refills. Vitamin D deficiency 347 70684 E55.9 last level was 39 in old system. PT takes OTC Vit D. Hemoglobin below reference range 900888215 D64.9 pt could not give blood. Long-term drug therapy 668039939 Z79.899 chronic conditions are stable. pt did not need refills. Administra tion of tetanus vaccine 915393516 Z23 [id number] ALISON Augustin [address] [address] 10/11/2021 09:05:37 10/11/2021 09:50:17 SARS-CoV-2 177428438 U07.1 went over to quarantine for full 10 days Dyspnea 331334681 R06.00 push fluids, steam will help. gave inhaler. [id number] ALISON Augustin [address] [address] 10/16/2021 13:38:02 10/16/2021 14:34:12 COVID-19 494528644 U07.1 improved Dyspnea 631473471 R06.00 improving. Long-term drug therapy 837282228 Z79.899 chronic conditions are stable. pt did not need refills. [id number] ALISON Kee [address] [address] 11/18/2021 08:56:52 11/18/2021 09:51:40 Viral screening 014830847 Z11.52 Cough 67501339 R05.1 -new Tachycardia 5284280 R00. 0 -new ekg revd today. Pneumonia 131051066 J18. 9 -new Chest pain 67426161 R07. 9 [id number] ALISON Kee [address] [address] 11/21/2021 11:36:56 11/21/2021 11:57:08 Headache 86507514 R51.9 -stable Chest pain 54847746 R07. 9 -improving Cough 14882908 R05.1 -improving [id number] Davonte Smith PA-C [address] [address] 12/24/2021 09:05:42 12/24/2021 09:51:07 Hypertensive disorder 47460212 I10 -stable Anxiety 12294058 F41.9 -stable Heartburn 01979713 R12 -new Long-term drug therapy 974723561 Z79.878 [id number] Jane Franco APRN [place] [employer] [address] [place] [address] [place] [address] 08/08/2022 14:53:38 08/08/2022 15:35:17 Routine gynecologic examination done 3985773769 9101 Z01.419 Depression screening 171 099557 Z13.89 Diet education 71037161 Z71.3 Encourage healthy eating/yu it fats, sugars, fried foods Counseling 440733041 Z71 .82 Encouraged regular exercise 30-40min/d ay 4-5 days/wk Examinatio n of blood pressure 417505341 Z01.30 Body mass index 30+ - obesity 774680358 Z68.30 Obesity 472128802 E66.9 Hypertensive disorder 38 060017 I10 Menorrhagia 900954644 N9 2.0 Uterine leiomyoma 530979 05 D25.9 Anemia 556510156 D64.9 Dysmenorrhea 069978117 N 94.6 [id number] ALISON Kee [address] [address] 06/19/2022 09:06:04 06/19/2022 09:35:59 Hypertensive disorder 60391845 I10 -stable Anxiety 92400406 F41.9 -stable General ex amination of patient 973681788 Z00.00 Screening for cardiovascular system disease 272981576 Z13.6 Exercises education, guidance, and counseling 679738892 Z71.82 The patient was advised to continue a healthy diet and exercise regularly. Dietary ma nagement surveillance 538560428 Z71.3 Acute sinusitis 85423628 J01.90 Long-term drug therapy 865856778 Z79.806 [id number] Noreen Segura MD [place] [employer] [address] [facility] [place] [address] 08/29/2022 15:53:19 08/29/2022 16:56:43 Menorrhagia 701462593 N92.0 Anemia 385578975 D64.9 Uterine leiomyoma 355302 05 D25.9 [id number] Xiomara Easley PA-C [address] [address] 11/10/2022 10:41:16 11/10/2022 11:23:21 Cough 95075831 R05.9 worsening [id number] Davonte Smith PA-C [address] [address] 12/18/2022 08:54:02 12/18/2022 09:30:32 Hypertensive disorder 64533713 I10 -stable Depressive disorder 3548 9007 F32.9 -stable Anxiety 00217172 F41.9 -stable Body mass index 30+ - obesity 273541277 Z68.30 Obesity 622510328 E66.9 Long-term drug therapy 354900145 Z79.162 [id number] Davonte Smith PA-C [place] [address] [address] 01/12/2023 15:16:14 01/12/2023 16:08:23 Influenza vaccine needed 0673336695 106 Z23 [id number] Davonte Smith PA-C [place] [address] 2 06/18/2023 08:37:44 06/18/2023 09:19:26 Hypertensive disorder 97354611 I10 -stable Long-term drug therapy 613082720 Z79.899 Anemia 115953837 D64.9 -stable Anxiety 18567445 F41.9 -stable [id number] Davonte Smith PA-C [place] [address] 2 12/15/2023 08:10:48 12/15/2023 09:04:03 Hypertensive disorder 55841678 I10 -stable Anxiety 92535139 F41.9 -stable Long-term drug therapy 525972881 Z79.899 Fatigue 93389294 R53.83 [id number] Xiomara Spivey PA-C [place] [address] 2 01/25/2024 11:53:02 01/25/2024 12:06:22 Influenza vaccine needed 3314398286 106 Z23 [id number] Davonte Smith PA-C [place] [address] 2 03/16/2024 11:32:29 03/16/2024 11:44:18 Lesion of skin of face 6466845687 06 L98.9 -new [id number] Davonte Smith PA-C [place] [address] 2 04/27/2024 10:17:21 04/27/2024 11:09:19 Essential hypertension 42491767 I10 Dizziness 926128992 R42 Horizontal nystagmus 817 62918 H55.09 [id number] Davonte Smith PA-C [place] [address] 2 05/04/2024 10:43:17 05/04/2024 11:26:21 Headache 04500890 R51.9 -stable Acute sinusitis 74123685 J01.90 Essential hypertension 46471361 I10 -improving [id number] Xiomara Easley PA-C [address] [address] 06/01/2024 08:39:36 06/01/2024 09:30:54 Cough 61685412 R05.9 worsening COVID-19 158361616 U07.1 -[facility] sed supportive care, encouraged oral fluids to maintain hydration, acetaminop hen or ibuprofen per OTC label instructio ns for pain/fever . [id number] Davonte Smith PA-C [place] [address] 07/18/2024 09:01:20 07/18/2024 09:46:45 Long-term drug therapy 352312295 Z79.899 Essential hypertension 59207252 I10 -stable Anxiety 10049843 F41.9 -stable [id number] Davonte Smith PA-C [place] [address] 12/06/2024 14:41:29 12/06/2024 14:55:29 Cellulitis of face 202747210 J34.0 64176 Eruption o f skin of face 9470868959 R21 50425893 [id number] Davonte Smith PA-C [address] [address] 12/22/2024 14:03:57 12/22/2024 14:41:52 Chest discomfort 953471822 R07.89 95389 -new Essential hypertension 68079068 I10 17948 -sub optimal control [id number] Davonte Smith PA-C [place] [address] 01/24/2025 09:55:47 01/24/2025 10:33:19 Anxiety 20358978 F41.9 -stable Hypertensive disorder 38 889617 I10 -stable Long-term drug therapy 652411678 Z79.899 Health Concerns Section Related Observation LastModified by Organization Detai ls LastModified Time None Recorded Concern Status LastModified by Organization Details LastModified Time None Recorded Advance Directives Directive Y: Payers Insurance Date Sequence Insurance Name Policy Number Policy Sorenson Covered Member ID Sorenson Member ID Guarantor Name 01/30/2025 1 [place] [id number] 1 Tiara Guerra [id number] Tiara Guerra Notes Date Note Type Note Provider Name and Address Organization Details Recorded Time 06/01/2024 text/html ROS as noted in the HPI pt presents to the office for shortness of breathe. pt states she has been coughing, congestion, and headachesPt reports not feeling wellShe will cough so much she has a hard time getting her breathsymptoms started fever, body aches.She reports the soa when coughing or going up and down stairs. It is both productive and dry cough. Pt has tried claritin, mucinex, and she tried left over prednisone. It didn't help much. Pt denies n/v/d, chest pain, trouble swallowing, or trouble going to the bathroom. Xiomara Easley PA-C [address], [place], [address], [place] - [facility] 06/01/2024 09:31:13 07/18/2024 text/html Hypertension [...] effects. Davonte Smith PA-C [address], [place], [address], [facility] - [facility] 07/18/2024 09:27:41 12/06/2024 text/html PT noticed a rash on her face that started Thursday AM, on upper lip but has spread up to nose and on face. No itching or burning of rash. No changes with water. Davonte Smith PA-C [address], [place], [address], [facility] - [facility] 12/06/2024 14:54:08 12/22/2024 text/html PT [...] ekg. Davonte Smith PA-C [address], [place], [address], [facility] 12/22/2024 14:42:08 01/24/2025 text/html Hypertension F/UReported [...] effects. Davonte Smith PA-C [address], [place], [address], [place] - [facility] 01/24/2025 10:17:09 OBGyn Episode No OBEpisode recorded.
--- OUTSIDE RECORDS SUMMARY | 2025-02-17 08:35 | XMS_ITS | Continuity of Care Document ---
Author Organization [facility] Address [address] [place] [address] Assessment No assessment recorded. Plan of Treatment Reminders Order Date Submit Date Provider Last Modified By Organization Details Last Modified Time Details Appointments Follow Up 20 2025 08:40A Sabrina Smith PA-C Not available Not available Not available Lab magnesium , serum or plasma 2024 025 JULIANNA [facility], [address], [address], [place], [address], 12/23/2024 08:26:28 renal function panel, serum 2024 025 JULIANNA [facility], [address], [place] [address], [place], [address], 12/23/2024 08:26:28 Referral cardiolog ist referral 2024 025 JULIANNA Not available 01/11/2025 12:20:05 Procedures None recorded. Surgeries None recorded. Imaging electroca rdiogram 2024 025 [email or web address] [facility], [address] [place], [address], 12/22/2024 15:04:11 Medication Orders None recorded. Patient TargetsNo targets recorded. 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 Referral for Ch est discomfort Referring Physician: Davonte Smith, Family Medicine, Encounter Date: 12/22/2024 Results Created Date Observation Date Name Description Value Unit Range Abnormal Flag Note LastModifiedBy Organization Detail LastModifiedTime 12/23/1912/23/2024 RENAL PANEL (10) glucose 137 mg/dL 70-99 above high normal Not Available [facility] ([facility]) [address] [place], [address], 12/23/2024 08:26:28 12/23/19 25 12/23/2024 RENAL PANEL (10) BUN 10 mg/dL 6-24 normal Not Available [facility] ([facility]) [address] [place], [address], 12/23/2024 08:26:28 12/23/1912/23/2024 RENAL PANEL (10) creatinine 0.75 mg/dL 0.57-1 .00 normal Not Available [facility] ([facility]) [address] [place], [address], 12/23/2024 08:26:28 12/23/1912/23/2024 RENAL PANEL (10) eGFR 96 mL/mi n/1.7 3 >59 normal Not Available [facility] ([facility]) [address] [place], [address], 12/23/2024 08:26:28 12/23/1912/23/2024 RENAL PANEL (10) BUN/creatini ne ratio 13 9-23 normal Not Available [facility] ([facility]) [address] [place], [address], 12/23/2024 08:26:28 12/23/19 25 12/23/2024 RENAL PANEL (10) sodium 136 mmol/ L 134-14 4 normal Not Available [facility] ([facility]) [address] [facility] [place], [address], 12/23/2024 08:26:28 12/23/19 25 12/23/2024 RENAL PANEL (10) potassium 3.3 mmol/ L 3.5-5. 2 below low normal Not Available [facility] ([facility]) [address] [facility] [place], [address], 12/23/2024 08:26:28 12/23/19 25 12/23/2024 RENAL PANEL (10) chloride 99 mmol/ L 96-106 normal Not Available [facility] ([facility]) [address] [facility] [place], [address], 12/23/2024 08:26:28 12/23/19 25 12/23/2024 RENAL PANEL (10) carbon dioxide, total 22 mmol/ L 20-29 normal Not Available [facility] ([facility]) [address] [facility] [place], [address], 12/23/2024 08:26:28 12/23/19 25 12/23/2024 RENAL PANEL (10) calcium 9.3 mg/dL 8.7-10 .2 normal Not Available [facility] ([facility]) [address] [facility] [place], [address], 12/23/2024 08:26:28 12/23/19 25 12/23/2024 RENAL PANEL (10) phosphorus 3.2 mg/dL 3.0-4. 3 normal Not Available [facility] ([facility]) [address] [facility] [place], [address], 12/23/2024 08:26:28 12/23/19 25 12/23/2024 RENAL PANEL (10) albumin 4.2 g/dL 3.8-4. 9 normal Not Available [facility] ([facility]) [address] [place], [address], 12/23/2024 08:26:28 12/23/1912/23/2024 MAGNE SIUM magnesium 2.0 mg/dL 1.6-2. 3 normal Not Available [facility] ([facility]) [address] [facility], [place], [address], 12/23/2024 08:26:28 12/23/19 25 12/27/2024 elect rocar diogr am No observ ation record ed. aappelman [facility] [address], [place], [address], 12/27/2024 13:54:52 12/24/1912/22/2024 elect rocar diogr am No observ ation record ed. BARCODE [facility] [address], [place], [address], 12/23/2024 11:31:23 02/02/2001/31/2025 cardi ac stres s test No observ ation record ed. [facility] [address], [place], [address], 02/01/2025 16:22:58 Result Notes None recorded. Problems Name Problem SNOMED Code Status Onset Date Resolution Date Notes Provider Name and Address Organization Details Recorded Time Exposure to SARS-CoV -2 Completed 07/03/2020 Removal Reason: Problem added by user [facility] l45 from the COVID-19 watch flag Amara Pedraza null, [place] - [facility] 08:23:57 Hyperten sive disorder 68020669 Active 2018 Octavia Rojo null, [place] - [facility] 9 08:51:29 Anxiety 62242598 Active 2018 Octavia Rojo null, [place] - [facility] 9 08:51:35 Depressi ve disorder 79393631 Active 2018 Octavia Rojo null, [place] - [facility] 9 08:51:40 Inguinal lymphade nopathy 676783301 Completed 201905/29/2021 Jaen Franco APRN [address], [place], [address] , [place] [facility] 2 15:54:19 Uterine leiomyom a 56523030 Active 2019 Jane Franco APRN [address], [place], [address] , [place] [facility] 0 12:48:28 Endometr ium thickene d 753051705 Completed 201912/25/2019 Noreen Segura MD [address], [place], [address] , [place] [facility] 0 18:23:33 Menorrha cristóbal 213819663 Completed 201905/29/2021 Jane Franco APRN [address], [place], [address] , [place] [facility] 3 15:27:49 Enlarged uterus 210866983 Completed 201912/25/2019 Noreen Segura MD [address], [place], [address] , [place] [facility] 0 18:23:38 Polyp of corpus uteri 89545999 Completed 201905/29/2021 Jane Franco APRN [address], [place], [address] , [place] [facility] 2 15:54:15 Crying associat ed with mood 418645601 Completed 202108/11/2022 Jane Franco APRN [address], [place], [address] , [place] [facility] 3 08:25:06 Night sweats 83664308 Active 2021 Jane Franco APRN [address], [place], [address] , [place] [facility] 2 15:55:33 Body mass index 30+ - obesity 842916429 Active 2021 Jane Franco APRN [address], [place], [address] , [place] [facility] 2 15:55:42 Mammogra phy abnormal 079253237 Active 2022 Possible evolving focal symmetry left breast. Recommen d spot compress ion tomograp hy in the cc view, true lateral tomogram , and sonograp hic evaluati on-6 mm hypoecho ic nodule superfic ially at the 4 o'clock position of the left breast-b x schedule d 06/19/22- stromal sclerosi s and FBC; no atypia or malignan cy Jane Franco APRN [address], [place], [address] , [place] [facility] 3 17:01:57 Menorrha cristóbal 423156000 Active 2022 Jane Franco APRN [address], [place], [address] , [place] [facility] 3 15:27:49 Anemia 853107963 Active 2022 Jane Franco APRN [address], [place], [address] , [place] [facility] 3 15:27:53 Dysmenor tobi 688644415 Active 2022 Jane Franco APRN [address], [place], [address] , [place] [facility] 3 15:27:55 Cough 74280321 Active 2022 Xiomara Easley PA-C [address], [place], [address] , [place] [facility] 3 11:18:54 COVID-19 185188542 Active 2024 Xiomara Easley PA-C [address], [place], [address] , [place] [facility] 5 09:31:09 Problem Notes None recorded. Procedures Surgical History Date Name Laterality Status Provider Name and Address Organization Details Recorded Time 06/20/19 Breast Biopsy completed Jane Franco APRN [address], [place], [address], [place] [facility] 06/23/2022 17:02:18 05/30/19 23 Date of Last Mammogram completed Jane Franco, [employer] [address], [place], [address], [place] - [facility] 06/02/2022 16:41:04 05/29/19 22 Date of Last Pap Smear completed Jane Franco, [employer] [address], [place], [address], [place] - [facility] 06/03/2021 11:55:05 02/01/20 21 Date of Last Colonoscopy completed Bethany Scales [place] - [facility] 05/29/2021 09:46:27 12/08/19 20 hysteroscopy completed Amara Pedraza [place] - [facility] 12/25/2020 08:17:25 12/29/19 13 Tubal Ligation completed Amara Pedraza [place] [facility] 12/25/2020 08:17:25 07/17/19 01 Caesarean Section completed Amara Pedraza [place] [facility] 12/25/2020 08:17:25 Tubal Ligation completed Octavia Rojo [place] [facility] 06/25/2018 08:55:44 section completed Octavia Grullonter [place] [facility] 06/25/2018 08:55:53 Cholecystectomy, laparoscopic completed Octavia Rojo [place] - [facility] 06/25/2018 08:55:58 Imaging Results None recorded. Procedure Notes None recorded. Medical Equipment None Reported. Allergies Allergen ID Allergen Name Allergen Category Reaction Reaction Severity Criticality Documentation Date Start Date Code Code System Note Provider Name and Address Organization Details Recorded Time 852272 doxycycli ne Not available rash Not available Not available 11/18/2022 3640 RxNorm Jeffrey villaseñor [place] - [facility] 3 14:19:58 06690 amoxicill in trihydrat e medicatio n hives Not available Not available 01/11/20162007 03899 8 RxNorm React ion: Hives ; Comme [...] Disconti nued on: 11/10/19 10 11:03AM; User: alix;P rinted: 09/22/19 09 Not Available Not Available [...] to office on day of procedur e. 08/07 /2023 completed Not Available Not Available Not Available [...] Disconti nued on: 12/17/19 13 10:46AM; User: santos;P rinted: 12/01/19 13 Not Available Not Available [...] Disconti nued on: 05/27/19 14 1:23PM;U ser: [email or web address]; Printed: 04/22/19 14 Not Available Not Available [...] on: 11/16/19 13 3:17PM;U ser: Mame grewal Completsavage on: 11/11/19 13;Print ed: 07/14/19 13 Not [...] nued on: 08/11/19 15 9:17AM;U ser: [email or web address];Lucila hollowayLorin Completi on: 09/03/19 15;Print ed: 09/08/19 14 [...] Many Years Have You Consumed Alcohol? 25 Information not available 12/25/2020 Are You Blind Or Do You Have Difficulty Seeing? No [email or web address] Information not available 06/19/2022 Is Blood Transfusion [...] Or The Highest Degree You Have Received? OH29912-6 [email or web address] Information not available 12/25/2020 Have There Been Any Changes To Your Family Or Social Situation? No Information no t available 08/08/2022 What Is The Fluoride Status Of Your Home? Fluoridated Information not available 08/08/2022 Have You Recently Or Are You Planning To Travel To An Area With Zika Virus? No Information not available 08/08/2022 Live Alone Or With Others? With Others [email or web address] Information not available 06/19/2022 Last Menstrual Period? 07/27/2022 Information not available 08/08/2022 Do You Have A Medical Power Of Sales Receptionist? No Information not available 08/08/2022 What Was The Date Of Your Most Recent Tobacco Screening? 01/24/2025 [email or web address] Information not available 01/24/2025 How Many Children Do You Have? 3 Information not available 06/25/2018 Performs Monthly Self-breast Exam? No [email or web address] Information no t available 06/19/2022 Do You Use Protection During Sex? Always Information not available 08/08/2022 Do You Use Protection Against STDs? No [email or web address] Information not available 06/19/2022 What Is Your Relationship Status? Information not available 06/25/2018 Do You Use Your Seat Belt Or Car Seat Routinely? Yes [email or web address] Information not available 12/25/2020 Seat Belts Used Routinely Yes [email or web address] Information not available 06/19/2022 Are You Sexually Active? Yes [email or web address] Information not available 02/15/2021 Do You Have Smoke And Carbon Monoxide Detectors In Your Home? Yes [email or web address] Information not available 12/25/2020 Are You Passively Exposed To Smoke? No [email or web address] Information no t available 12/25/2020 How Much Tobacco Do You Smoke? No [email or web address] Information not available 06/19/2022 Do You Use Sunscreen Routinely? Yes Information not available 06/25/2018 Has Tobacco Cessation Counseling Been Provided? No Information not available 08/08/2022 Do You Have Difficulty Walking Or Climbing Stairs? No [email or web address] Information not available 06/19/2022 What Contraceptive Method [...] available 07/18/2019 Are you currently employed? Yes [email or web address] Information not available 12/25/2020 Do you have transportation difficulties? No Information not available 08/08/2022 Urinary incontinence assessment performed? No Information not available 06/19/2022 Are you able to care for yourself independently? Yes [email or web address] Information not available 12/25/2020 Do you have difficulty dressing, bathing, grooming, or toileting? No [email or web address] Information not available 06/19/2022 Do you or have you ever used e-cigarettes or vape? Never used electronic cigarettes [email or web address] Information not available 07/18/2019 What is your exercise level? Occasional Information not available 06/25/2018 Do you use any illicit or recreational drugs? No Information not available 08/08/2022 Do you or have you ever used any other forms of tobacco or nicotine? No Information not available 08/08/2022 What is your level of alcohol consumption? Moderate [email or web address] Information not available 12/25/2020 What is your status? Not Information no t available 08/08/2022 Are you able to walk independently without assistance or assistive devices? YESWOREST [email or web address] Information not available 06/19/2022 Do you have difficulty doing errands alone? No [email or web address] Information not available 06/19/2022 What is your occupation? [employer] Information not available 06/25/2018 Mental Status Question Answer Note LastModified by Organizat ion Details LastModified Time Do you feel stressed (tense, restless, nervous, or anxious, or unable to sleep at night)? [id number] [email or web address] Information not available 12/25/2020 Do you have difficulty concentrating, remembering or making decisions? No [email or web address] Information no t available 06/19/2022 Family History Relationship Description Onset Age of this Age Resolved Age Notes LastModified by Organization Details LastModified Time Maternal Grandmother Cerebrovascu lar accident ntarter Not available 08:53:33 Maternal Grandmother Hypertensive disorder ntarter Not available 2018 08:53:59 Brother Diabetes mellitus [email or web address] Not available 09:09:30 Maternal Grandfather Hypertensive disorder [email or web address] Not available 12/06 08:17:03 Mother Hypertensive disorder ntarter Not available 2018 08:53:59 Mother Disorder of thyroid gland ntarter Not available 2018 08:54:10 Mother Heart disease 16 [email or web address] Not available 12/06 08:17:03 Mother Arthritis Not avail able 12/25/2020 08:17:03 Father Hypercholest erolemia [email or web address] Not available 12/06 08:17:03 Father Hypertensive disorder [email or web address] Not available 12/06 08:17:03 Maternal Uncle Diabetes mellitus [email or web address] Not available 09:09:30 Medical History Condition Response [...] quadrivalent, preservative 07/18/19 cancelled patient objection Jane Franco APRN [address], [place], [address], [place] [facility] 07/18/2019 16:43:45 Influenza, split virus, quadrivalent, PF 12/26/19 21 completed Amara villaseñor, [place] [facility] 01/08/2021 13:40:47 COVID-19, mRNA, LNP-S, PF, 100 mcg/0.5mL dose or 50 mcg/0.25mL dose 04/19/19 completed Davonte Smith PA-C [address], [place], [address], [place] [facility] 04/19/2021 11:19:06 Tdap 06/25/19 22 completed Amara villaseñor, [place] [facility] 06/24/2021 09:29:49 Influenza, split virus, quadrivalent, PF 01/13/20 23 completed Davonte Smith PA-C [address], [place], [address], [place] [facility] 01/12/2023 15:32:57 Influenza, split virus, trivalent, preservative 01/25/20 24 completed Xiomara Spivey PA-C [address], [place], [address], [place] [facility] 01/25/2024 15:25:34 COVID-19, mRNA, LNP-S, PF, 100 mcg/0.5mL dose or 50 mcg/0.25mL dose 06/13/19 21 completed Tiffanie villaseñor, [place] [facility] 08/08/2022 14:58:26 COVID-19, mRNA, LNP-S, PF, 100 mcg/0.5mL dose or 50 mcg/0.25mL dose 07/11/19 21 completed Tiffanie Jorge L charleen, [place] - [facility] 08/08/2022 14:58:26 Past Encounters Encounter ID Performer Location Encounter Start Date Encounter Closed Date Diagnosis/Indication Diagnosis SNOMED-CT Code Diagnosis ICD10 Code Diagnosis IMO Codes Diagnosis Note [id number] ALISON Kee [address] [address] 12/06/2024 14:41:29 12/06/2024 14:55:29 Cellulitis of face 925805115 J34.0 90030 Eruption o f skin of face 3886540386 R21 [id number] Davonte Smith PA-C [place] [address] [address] 12/22/2024 14:03:57 12/22/2024 14:41:52 Chest discomfort 266402579 R07.89 42551 -new Essential hypertension 74981162 I10 86188 -sub optimal control Health Concerns Section Related Observation LastModified by Organization Detai ls LastModified Time None Recorded Concern Status LastModified by Organization Details LastModified Time None Recorded Payers Encounter Date Sequence Insurance Name Policy Number Policy Sorenson Covered Member ID Sorenson Member ID Guarantor Name 12/22/2024 1 [place] [id number] 1 Tiara Guerra [id number] Tiara Guerra Notes Date Note Type [...] ekg. Davonte Smith PA-C [address], [place], [address], [place] - [facility] 12/22/2024 14:42:08 OBGyn Episode No OBEpisode recorded.
--- OUTSIDE RECORDS SUMMARY | 2025-02-17 08:35 | XMS_ITS | Clinical Summary ---
Author Organization [facility] Address [address] [place] [address] Care Team Providers Care Passenger Flagman Name Role Phone Unavailable Primary Care Provider Unavailabl e Source Comments This information has been disclosed to you from confidential records protectedfrom disclosure by state law. You shall make no further disclosure of thisinformation without the specific, written, and informed release of theindividual to whom it pertains, or as otherwise permitted by law. A generalauthorization for the release of medical or other information is not sufficientfor the purposes of therelease of HIV test results or diagnoses. [id number] Social History Tobacco Use Types Packs/Day Years Used Date Smoking Tobacco: Never Assessed Comments Unknown Sex and Gender Information Value Date Recorded Sex Assigned at Not on file Legal Sex Female 5:15 PM EST Gender Identity Not on file Sexual Orientation Not on file Plan of Treatment Not on file
--- OUTSIDE RECORDS SUMMARY | 2025-02-17 08:35 | XMS_ITS | Encounter Summary ---
Author Organization [place] [address] Care Team Providers Care Marketing Intern Name Role Phone Fortino Castro MD Unavailable Encounter Details Date Type Department Care Team (Late Contact Info) Description 09/02/2024 Orders Only [facility] Physical Therapy [address] [place] [phone] Iban Dominguez, PT Social History Tobacco Use Types Packs/Day Years [...] on file documented as of this encounter Plan of Treatment Upcoming Encounters Date Type Department Care Team (Late Contact Info) Description 03/09/2025 10:15 AM EST Office Visit [facility] [address] [facility] [address] [place] [address] Israel Bailon MD [address] [address] documented as of this encounter Visit Diagnoses Not on filedocumented in this encounter Care Teams Marketing Intern Relationship Specialty Start Date End Date Fortino Castro MD [address] [place] [address] [place], [place] [id number] Medical Oncologist Internal Medicine-Hematology and Oncology 09/29/22 documented as of this encounter
--- OUTSIDE RECORDS SUMMARY | 2025-02-17 08:35 | XMS_ITS ---
Author Organization Unknown ENCOUNTERS Encounter Performer Location Date Diagnosis Diagnosis Status Outpatient [address] [place] [address] [id number] [place] [address] [id number] *Note: Encounters from your own facility or health system may be excluded. Allergies, Adverse Reactions, Alerts Allergen Type Severity Identification Date amoxicillin drug allergy 4 [id number] Medications Name Date Quantity Days Supplied GPI Number
--- OUTSIDE RECORDS SUMMARY | 2025-02-17 08:35 | XMS_ITS | Continuity of Care Document ---
Author Organization [facility] Address [address] [place] [id number] Assessment No assessment recorded. Plan of Treatment Reminders Order Date Submit Date Provider Last Modified By Organization Details Last Modified Time Details Appointments Follow Up 2025 08:40A Sabrina Smith PA-C Not available Not available Not available Lab CBC w/ auto diff 2024 025 VERSAILLES [facility], [address], Antonio F, [place], [address], 01/25/2025 08:26:50 lipid panel, serum 2024 025 VERSAILLES [facility], [address], [place] F, [place], [address], 01/25/2025 08:26:50 CMP, serum or plasma 2024 025 JULIANNA [facility], [address], [place] F, [place], [address], 01/25/2025 08:26:50 Referral None recorded. Procedures None recorded. Surgeries None recorded. Imaging None recorded. Medication Orders losartan 100 mg tablet 2024 025 JULIANNA Herman [facility], [address] [place] [address] [place], [id number], 01/24/2025 10:35:49 amlodipin e 10 mg tablet [address] [facility], [address] [place] [address] Dr, [place], [place], [id number], 01/24/2025 10:25:44 Patient TargetsNo targets recorded. Patient Instructions Encounter Date Encounter Id Patient Instructions Last Modified By Organization Details Last Modified Time 01/24/2025 [id number] CALL WITH CHANGE S RTC OR GO [...] /uL 3.4-10 .8 normal Not Available [facility] ([facility]) [address] [place], [address], 01/25/2025 08:26:50 01/25/2001/25/2025 CBC WITH DIFFE RENTI AL/PL ATELE T RBC 4.11 x10e6 /uL 3.77-5 .28 normal Not Available [facility] ([facility]) [address] [place], [address], 01/25/2025 08:26:50 01/25/20 25 01/25/2025 CBC WITH DIFFE RENTI AL/PL ATELE T hemoglobin 13.3 g/dL 11.1-1 5.9 normal Not Available [facility] ([facility]) [address] [place], [address], 01/25/2025 08:26:50 01/25/20 25 01/25/2025 CBC WITH DIFFE RENTI AL/PL ATELE T hematocrit 40.4 % 34.0-4 6.6 normal Not Available [facility] ([facility]) [address] [facility], [place], [address], 01/25/2025 08:26:50 01/25/2001/25/2025 CBC WITH DIFFE RENTI AL/PL ATELE T MCV 98 fL 79-97 above high normal Not Available [facility] ([facility]) [address] [facility], [place], [address], 01/25/2025 08:26:50 01/25/20 25 01/25/2025 CBC WITH DIFFE RENTI AL/PL ATELE T MCH 32.4 pg 26.6-3 3.0 normal Not Available [facility] ([facility]) [address] [facility], [place], [address], 01/25/2025 08:26:50 01/25/20 25 01/25/2025 CBC WITH DIFFE RENTI AL/PL ATELE T MCHC 32.9 g/dL 31.5-3 5.7 normal Not Available [facility] ([facility]) [address] [facility], [place], [address], 01/25/2025 08:26:50 01/25/20 25 01/25/2025 CBC WITH DIFFE RENTI AL/PL ATELE T RDW 11.8 % 11.7-1 5.4 Not Available [facility] ([facility]) [address] [facility], [place], [address], 01/25/2025 08:26:50 01/25/20 25 01/25/2025 CBC WITH DIFFE RENTI AL/PL ATELE T platelets 308 x10e3 /uL 150-45 0 normal Not Available [facility] ([facility]) [address] [place], [address], 01/25/2025 08:26:50 01/25/20 25 01/25/2025 CBC WITH DIFFE RENTI AL/PL ATELE T neutrophils 55 % not estab. normal Not Available [facility] ([facility]) [address] [place], [address], 01/25/2025 08:26:50 01/25/20 25 01/25/2025 CBC WITH DIFFE RENTI AL/PL ATELE T lymphs 32 % not estab. normal Not Available [facility] ([facility]) [address] [facility], [place], [address], 01/25/2025 08:26:50 01/25/20 25 01/25/2025 CBC WITH DIFFE RENTI AL/PL ATELE T monocytes 11 % not estab. normal Not Available [facility] ([facility]) [address] [facility], [place], [address], 01/25/2025 08:26:50 01/25/2001/25/2025 CBC WITH DIFFE RENTI AL/PL ATELE T eos 1 % not estab. normal Not Available [facility] ([facility]) [address] [facility], [place], [address], 01/25/2025 08:26:50 01/25/20 25 01/25/2025 CBC WITH DIFFE RENTI AL/PL ATELE T basos 1 % not estab. normal Not Available [facility] ([facility]) [address] [facility], [place], [address], 01/25/2025 08:26:50 01/25/20 25 01/25/2025 CBC WITH DIFFE RENTI AL/PL ATELE T immature cells TOP CLOSER Not Available [facility] ([facility]) [address] [facility], [place], [address], 01/25/2025 08:26:50 01/25/20 25 01/25/2025 CBC WITH DIFFE RENTI AL/PL ATELE T neutrophils (absolute) 3.7 x10e3 /uL 1.4-7. 0 normal Not Available [facility] ([facility]) [address] [place], [address], 01/25/2025 08:26:50 01/25/20 25 01/25/2025 CBC WITH DIFFE RENTI AL/PL ATELE T lymphs (absolute) 2.2 x10e3 /uL 0.7-3. 1 normal Not Available [facility] ([facility]) [address] [facility], [place], [address], 01/25/2025 08:26:50 01/25/20 25 01/25/2025 CBC WITH DIFFE RENTI AL/PL ATELE T monocytes(ab solute) 0.8 x10e3 /uL 0.1-0. 9 normal Not Available [facility] ([facility]) [address] [facility], [place], [address], 01/25/2025 08:26:50 01/25/20 25 01/25/2025 CBC WITH DIFFE RENTI AL/PL ATELE T eos (absolute) 0.1 x10e3 /uL 0.0-0. 4 normal Not Available [facility] ([facility]) [address] [facility], [place], [address], 01/25/2025 08:26:50 01/25/20 25 01/25/2025 CBC WITH DIFFE RENTI AL/PL ATELE T baso (absolute) 0.0 x10e3 /uL 0.0-0. 2 normal Not Available [facility] ([facility]) [address] [facility], [place], [address], 01/25/2025 08:26:50 01/25/20 25 01/25/2025 CBC WITH DIFFE RENTI AL/PL ATELE T immature granulocytes 0 % not estab. Not Available [facility] ([facility]) [address] [place], [address], 01/25/2025 08:26:50 01/25/20 25 01/25/2025 CBC WITH DIFFE RENTI AL/PL ATELE T immature grans (abs) 0.0 x10e3 /uL 0.0-0. 1 Not Available [facility] ([facility]) [address], [place], [address], 01/25/2025 08:26:50 01/25/20 25 01/25/2025 CBC WITH DIFFE RENTI AL/PL ATELE T NRBC TOP CLOSER Not Available [facility] ([facility]) [address], [place], [address], 01/25/2025 08:26:50 01/25/20 25 01/25/2025 CBC WITH DIFFE RENTI AL/PL ATELE T hematology comments: TOP CLOSER Not Available [facility] ([facility]) [address] [facility], [place], [address], 01/25/2025 08:26:50 01/25/20 25 01/25/2025 COMP. METAB OLIC PANEL (14) glucose 95 mg/dL 70-99 normal Not Available [facility] ([facility]) [address] [facility], [place], [address], 01/25/2025 08:26:50 01/25/20 25 01/25/2025 COMP. METAB OLIC PANEL (14) BUN 10 mg/dL 6-24 normal Not Available [facility] ([facility]) [address] [facility], [place], [address], 01/25/2025 08:26:50 01/25/20 25 01/25/2025 COMP. METAB OLIC PANEL (14) creatinine 0.76 mg/dL 0.57-1 .00 normal Not Available [facility] ([facility]) [address] [facility], [place], [address], 01/25/2025 08:26:50 01/25/20 25 01/25/2025 COMP. METAB OLIC PANEL (14) eGFR 95 mL/mi n/1.7 3 >59 normal Not Available [facility] ([facility]) [address] [facility], [place], [address], 01/25/2025 08:26:50 01/25/20 25 01/25/2025 COMP. METAB OLIC PANEL (14) BUN/creatini ne ratio 13 9-23 normal Not Available [facility] ([facility]) [address] [place], [address], 01/25/2025 08:26:50 01/25/20 25 01/25/2025 COMP. METAB OLIC PANEL (14) sodium 137 mmol/ L 134-14 4 normal Not Available [facility] ([facility]) [address] [place], [address], 01/25/2025 08:26:50 01/25/20 25 01/25/2025 COMP. METAB OLIC PANEL (14) potassium 3.9 mmol/ L 3.5-5. 2 normal Not Available [facility] ([facility]) [address] [place], [address], 01/25/2025 08:26:50 01/25/20 25 01/25/2025 COMP. METAB OLIC PANEL (14) chloride 99 mmol/ L 96-106 normal Not Available [facility] ([facility]) [address] [place], [address], 01/25/2025 08:26:50 01/25/20 25 01/25/2025 COMP. METAB OLIC PANEL (14) carbon dioxide, total 22 mmol/ L 20-29 normal Not Available [facility] ([facility]) [address] [place], [address], 01/25/2025 08:26:50 01/25/20 25 01/25/2025 COMP. METAB OLIC PANEL (14) calcium 9.3 mg/dL 8.7-10 .2 normal Not Available [facility] ([facility]) [address] [place], [address], 01/25/2025 08:26:50 01/25/20 25 01/25/2025 COMP. METAB OLIC PANEL (14) protein, total 6.8 g/dL 6.0-8. 5 normal Not Available [facility] ([facility]) [address] [facility] [place], [address], 01/25/2025 08:26:50 01/25/20 25 01/25/2025 COMP. METAB OLIC PANEL (14) albumin 4.2 g/dL 3.8-4. 9 normal Not Available [facility] ([facility]) [address] [facility] [place], [address], 01/25/2025 08:26:50 01/25/20 25 01/25/2025 COMP. METAB OLIC PANEL (14) globulin, total 2.6 g/dL 1.5-4. 5 Not Available [facility] ([facility]) [address] [facility] [place], [address], 01/25/2025 08:26:50 01/25/20 25 01/25/2025 COMP. METAB OLIC PANEL (14) bilirubin, total 1.3 mg/dL 0.0-1. 2 above high normal Not Available [facility] ([facility]) [address] [facility] [place], [address], 01/25/2025 08:26:50 01/25/20 25 01/25/2025 COMP. METAB OLIC PANEL (14) alkaline phosphatase 73 IU/L 49-135 normal Not Available [facility] ([facility]) [address] [facility] [place], [address], 01/25/2025 08:26:50 01/25/20 25 01/25/2025 COMP. METAB OLIC PANEL (14) AST (SGOT) 17 IU/L 0-40 normal Not Available [facility] ([facility]) [address] [facility] [place], [address], 01/25/2025 08:26:50 01/25/20 25 01/25/2025 COMP. METAB OLIC PANEL (14) ALT (SGPT) 17 IU/L 0-32 normal Not Available [facility] ([facility]) [address] [place], [address], 01/25/2025 08:26:50 01/25/20 25 01/25/2025 LIPID PANEL cholesterol, total 205 mg/dL 100-19 9 above high normal Not Available [facility] ([facility]) [address] [place], [address], 01/25/2025 08:26:50 01/25/20 25 01/25/2025 LIPID PANEL triglyceride s 101 mg/dL 0-149 normal Not Available [facility] ([facility]) [address] [place], [address], 01/25/2025 08:26:50 01/25/20 25 01/25/2025 LIPID PANEL HDL cholesterol 54 mg/dL >39 normal Not Available [facility] ([facility]) [address] [place], [address], 01/25/2025 08:26:50 01/25/20 25 01/25/2025 LIPID PANEL VLDL cholesterol param 18 mg/dL 5-40 Not Available [facility] ([facility]) [address] [place], [address], 01/25/2025 08:26:50 01/25/20 25 01/25/2025 LIPID PANEL LDL chol calc ([facility]) 133 mg/dL 0-99 above high normal Not Available [facility] ([facility]) [address] [place], [address], 01/25/2025 08:26:50 01/25/2001/25/2025 LIPID PANEL LDL calc comment: TOP CLOSER Not Available [facility] ([facility]) [address] [place], [address], 01/25/2025 08:26:50 02/02/20 25 01/31/2025 cardi ac stres s test No observ ation record ed. [email or web address] [facility] [address], [place], [place], [address], 02/01/2025 16:22:58 Result Notes None recorded. Problems Name Problem SNOMED Code Status Onset Date Resolution Date Notes Provider Name and Address Organization Details Recorded Time Exposure to SARS-CoV -2 Completed 07/03/2020 Removal Reason: Problem added by user kayla [email or web address] from the COVID-19 watch flag Amara Pedraza null, [place] - [facility] 1 08:23:57 Hyperten sive disorder 03936017 Active 2018 Octavia Rojo null, [place] - [facility] 9 08:51:29 Anxiety 15216884 Active 2018 Octavia Rojo null, [place] - [facility] 9 08:51:35 Depressi ve disorder 06525484 Active 2018 Octavia Grullonter null, [place] - [facility] 9 08:51:40 Inguinal lymphade nopathy 925934471 Completed 201905/29/2021 Jane Franco APRN [address], [place], [address] , [place] - [facility] 2 15:54:19 Uterine leiomyom a 29948517 Active 2019 Jane Franco APRN [address], [place], [address] , [place] - [facility] 0 12:48:28 Endometr ium thickene d 097223426 Completed 201912/25/2019 Noreen Segura MD [address], [place], [address] , [place] - [facility] 0 18:23:33 Menorrha cristóbal 235167786 Completed 201905/29/2021 Jane Franco APRN [address], [place], [address] , [place] - [facility] 3 15:27:49 Enlarged uterus 611016101 Completed 201912/25/2019 Noreen Segura MD [address], [place], [address] , [place] [facility] 0 18:23:38 Polyp of corpus uteri 30719055 Completed 201905/29/2021 Jane Franco BERNA [address], [place], [address] , [place] [facility] 2 15:54:15 Crying associat ed with mood 589912744 Completed 202108/11/2022 Jane LópezBERNA thomas [address], [place], [address] , [place] [facility] 3 08:25:06 Night sweats 55616985 Active 2021 Jane Lópezcker BERNA [address], [place], [address] , [place] - [facility] 2 15:55:33 Body mass index 30+ - obesity 096987143 Active 2021 Jane SalvadorBERNA thomas [address], [place], [address] , [place] - [facility] 2 15:55:42 Mammogra phy abnormal 254224575 Active 2022 Possible evolving focal symmetry left breast. Recommen d spot compress ion tomograp hy in the cc view, true lateral tomogram , and sonograp hic evaluati on-6 mm hypoecho ic nodule superfic ially at the 4 o'clock position of the left breast-b x schedule d 06/19/22- stromal sclerosi s and FBC; no atypia or malignan cy Jane LópezBERNA thomas [address], [place], [address] , [place] - [facility] 3 17:01:57 Menorrha cristóbal 560557981 Active 2022 Jane SalvadorBERNA thomas [address], [place], [address] , [place] [facility] 3 15:27:49 Anemia 255631341 Active 2022 Jane Franco APRN [address], [place], [address] , [place] [facility] 3 15:27:53 Dysmenor tobi 763383231 Active 2022 Jane Franco APRN [address], [place], [address] , [place] [facility] 3 15:27:55 Cough 85379639 Active 2022 Xiomara Easley PA-C [address], [place], [address] , [place] [facility] 3 11:18:54 COVID-19 006247620 Active 2024 Xiomara Easley PA-C [address], [place], [address] , [place] [facility] 5 09:31:09 Problem Notes None recorded. Procedures Surgical History Date Name Laterality Status Provider Name and Address Organization Details Recorded Time 06/20/19 23 Breast Biopsy completed Jane Franco APRN [address], [place], [address], [place] [facility] 06/23/2022 17:02:18 05/30/19 23 Date of Last Mammogram completed Jane Franco APRN [address], [place], [place], [address], [place] [facility] 06/02/2022 16:41:04 05/29/19 22 Date of Last Pap Smear completed Jane Franco APRN [address], [place], [address], [place] [facility] 06/03/2021 11:55:05 02/01/20 [...] [facility] 06/25/2018 08:55:44 section completed Octavia Rojo [place] - [facility] 06/25/2018 08:55:53 Cholecystectomy, laparoscopic completed Octavia Rojo [place] - [facility] 06/25/2018 08:55:58 Imaging Results None recorded. Procedure Notes None recorded. Medical Equipment None Reported. Allergies Allergen ID Allergen Name Allergen Category Reaction Reaction Severity Criticality Documentation Date Start Date Code Code System Note Provider Name and Address Organization Details Recorded Time 696696 doxycycli ne Not available rash Not available Not available 11/18/2022 3640 RxNorm Jeffrey villaseñor, [place] [facility] 3 14:19:58 18980 amoxicill in trihydrat e medicatio n hives Not available Not available 01/11/20162007 67294 8 RxNorm React ion: Hives ; Comme nt: amoxi cilli n; Not Available [facility] 09:16:35 Medications Name Sig Start Date [...] Disconti nued on: 06/16/19 13 2:58PM;U ser: jose alberto;Savage ndicatio n: Hyperten mook - (4019 ) [...] nued on: 11/16/19 13 3:17PM;U ser: Mame Chavarria on: 11/11/19 13;Print ed: 07/14/19 13 Not [...] on: 12/17/19 13 10:46AM; User: Mame grewal Completsavage on: 12/08/19 13;Print ed: 12/01/19 [...] 167.64 cm 14 /min 0 29.9 kg/m2 54542.6 9 g 98.2 [degF] 80 /min 98 % 98 % 130/72 mm[Hg] Kari Mancini [place] - [facility] 5 10:02:51 Social History Question Answer Notes LastModified by Organizat ion Details LastModified Time Tobacco Smoking Status Never Smoker Octavia Rojo null, [place] - [facility] 06/25/2018 08:54:17 Do You Have An Advance Directive? Yes Information not available 06/25/2018 How Many Years Have You Consumed Alcohol? 25 [email or web address] Information not available 12/25/2020 Are You Blind Or Do You Have Difficulty Seeing? No [email or web address] Information not available 06/19/2022 Is Blood Transfusion [...] Or The Highest Degree You Have Received? [id number] [email or web address] Information not available 12/25/2020 Have There Been Any Changes To Your Family Or Social Situation? No Information no t available 08/08/2022 What Is The Fluoride Status Of Your Home? Fluoridated Information not available 08/08/2022 Have You Recently Or Are You Planning To Travel To An Area With Zika Virus? No Information not available 08/08/2022 Live Alone Or With Others? With Others [email or web address] Information not available 06/19/2022 Last Menstrual Period? 07/27/2022 Information not available 08/08/2022 Do You Have A Medical Power Of Stamp Machine Servicer? No Information not available 08/08/2022 What Was The Date Of Your Most Recent Tobacco Screening? 01/24/2025 [email or web address] Information not available 01/24/2025 How Many Children Do You Have? 3 Information not available 06/25/2018 Performs Monthly Self-breast Exam? No [email or web address] Information no t available 06/19/2022 Do You Use Protection During Sex? Always Information not available 08/08/2022 Do You Use Protection Against STDs? No [email or web address] Information not available 06/19/2022 What Is Your Relationship Status? Information not available 06/25/2018 Do You Use Your Seat Belt Or Car Seat Routinely? Yes Information not available 12/25/2020 Seat Belts Used Routinely Yes [email or web address] Information not available 06/19/2022 Are You Sexually Active? Yes [email or web address] Information not available 02/15/2021 Do You Have Smoke And Carbon Monoxide Detectors In Your Home? Yes [email or web address] Information not available 12/25/2020 Are You Passively Exposed To Smoke? No [email or web address] Information no t available 12/25/2020 How Much Tobacco Do You Smoke? No [email or web address] Information not available 06/19/2022 Do You Use Sunscreen Routinely? Yes Information not available 06/25/2018 Has Tobacco Cessation Counseling Been Provided? No Information not available 08/08/2022 Do You Have Difficulty Walking Or Climbing Stairs? No [email or web address] Information not available 06/19/2022 What Contraceptive Method [...] used smokeless tobacco? Never used smokeless tobacco [email or web address] Information not available 07/18/2019 Are you currently employed? Yes [email or web address] Information not available 12/25/2020 Do you have transportation difficulties? No Information not available 08/08/2022 Urinary incontinence assessment performed? No [email or web address] Information not available 06/19/2022 Are you able to care for yourself independently? Yes [email or web address] Information not available 12/25/2020 Do you have difficulty dressing, bathing, grooming, or toileting? No [email or web address] Information not available 06/19/2022 Do you or have you ever used e-cigarettes or vape? Never used electronic cigarettes [email or web address] Information not available 07/18/2019 What is your exercise level? Occasional Information not available 06/25/2018 Do you use any illicit or recreational drugs? No Information not available 08/08/2022 Do you or have you ever used any other forms of tobacco or nicotine? No Information not available 08/08/2022 What is your level of alcohol consumption? Moderate [email or web address] Information not available 12/25/2020 What is your status? Not Information no t available 08/08/2022 Are you able to walk independently without assistance or assistive devices? YESWOREST [id number] Information not available 06/19/2022 Do you have difficulty doing errands alone? 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 [id number] [email or web address] Information not available 12/25/2020 Do you have difficulty concentrating, remembering or making decisions? No [email or web address] Information no t available 06/19/2022 Family History Relationship Description Onset Age of this Age Resolved Age Notes LastModified by Organization Details LastModified Time Maternal Grandmother Cerebrovascu lar accident ntarter Not available 08:53:33 Maternal Grandmother Hypertensive disorder ntarter Not available 2018 08:53:59 Brother Diabetes mellitus [email or web address] Not available 09:09:30 Maternal Grandfather Hypertensive disorder [email or web address] Not available 12/06 08:17:03 Mother Hypertensive disorder ntarter Not available 2018 08:53:59 Mother Disorder of thyroid gland ntarter Not available 2018 08:54:10 Mother Heart disease 16 [email or web address] Not available 12/06 08:17:03 Mother Arthritis [email or web address] Not avail able 12/25/2020 08:17:03 Father Hypercholest erolemia [email or web address] Not available 12/06 08:17:03 Father Hypertensive disorder [email or web address] Not available 12/06 08:17:03 Maternal Uncle Diabetes mellitus [email or web address] Not available 09:09:30 Medical History Condition Response [...] preservative 07/18/19 20 cancelled patient objection Jane Lópezcker, BERNA [address], [place], [address], [place] - [facility] 07/18/2019 16:43:45 Influenza, split virus, quadrivalent, PF 12/26/19 21 completed Amara Pedraza null, [place] - [facility] 01/08/2021 13:40:47 COVID-19, mRNA, LNP-S, PF, 100 mcg/0.5mL dose or 50 mcg/0.25mL dose 04/19/19 22 completed Davonte Smith PA-C [address], [place], [address], [place] [facility] 04/19/2021 11:19:06 Tdap 06/25/19 22 completed Amara Pedraza [place] [facility] 06/24/2021 09:29:49 Influenza, split virus, quadrivalent, PF 01/13/20 23 completed Davonte Smith PA-C [address], [place], [address], [place] [facility] 01/12/2023 15:32:57 Influenza, split virus, trivalent, preservative 01/25/20 24 completed Xiomara Spivey PA-C [address], [place], [address], [place] [facility] 01/25/2024 15:25:34 COVID-19, mRNA, [...] ICD10 Code Diagnosis IMO Codes Diagnosis Note [id number] Davonte Smith PA-C [address] [address] 01/24/2025 09:55:47 01/24/2025 10:33:19 Anxiety 06474667 F41.9 -stable Hypertensive disorder 38 988303 I10 -stable Long-term drug therapy 430802761 Z79.899 Health Concerns Section Related Observation LastModified by Organization Detai ls LastModified Time None Recorded Concern Status LastModified by Organization Details LastModified Time None Recorded Payers Encounter Date Sequence Insurance Name Policy Number Policy Sorenson Covered Member ID Sorenson Member ID Guarantor Name 01/24/2025 1 [place] [id number] 1 Tiara G Charlie [id number] Tiara Guerra Notes Date Note Type [...] no side effects. Davonte Smith PA-C [address], [place], [address], [place] [facility] 01/24/2025 10:17:09 OBGyn Episode No OBEpisode recorded.
--- OUTSIDE RECORDS SUMMARY | 2025-02-17 08:35 | XMS_ITS | Encounter Summary ---
Author Organization [place] [address] Care Team Providers Care Special Systems Technician Name Role Phone Fortino Castro MD Unavailable [phone] Reason for Visit * Reason Comments Medication Refill Encounter Details Date Type Department Care Team (Late Contact Info) Description 02/14/2025 Refill [facility] [address] [facility] [address], 3[address] [place] [id number] Fransisco Mariscal MD [address] [place] [address] Medication Refill Social History Tobacco Use Types [...] on file documented as of this encounter Ordered Prescriptions Prescription Sig Dispense Quantity Refills Last Filled Start Date End Date pantoprazole (PROTONIX) 40 mg Oral Tablet, Delayed Release (E.C.) TAKE ONE TABLET BY MOUTH TWICE DAILY 180 Tablet 02/15/2025 documented in this encounter Plan of Treatment Upcoming Encounters Date Type Department Care Team (Late Contact Info) Description 03/09/2025 10:15 AM EST Office Visit [facility] [address] [facility] [address] [place] [id number] Israel Bailon MD [address] [facility] [address] [address] documented as of this encounter Visit Diagnoses Not on filedocumented in this encounter Discontinued Medications Medication Sig Discontinue Reason Start Date End Da te pantoprazole (PROTONIX) 40 mg Oral Tablet, Delayed Release (E.C.) Take 1 Tablet by mouth 2 times daily. 02/17/2024 02/15/2025 documented as of this encounter Care Teams Special Systems Technician Relationship Specialty Start Date End Date Fortino Castro MD 1 [facility] [place] [address] Medical Oncologist Internal Medicine-Hematology and Oncology 09/29/22 documented as of this encounter
--- OUTSIDE RECORDS SUMMARY | 2025-02-17 08:35 | XMS_ITS | Clinical Summary ---
Author Organization [facility] Address [address] [facility] [place] [address] Phone Care Team Providers Care Director Revenue Name Role Phone Fortino Castro MD Unavailable [phone] Allergies Active Allergy Reactions Criticality Noted Date Comments Amoxicillin 02/21/2016 Doxycycline Rash 12/09/2022 Medications amLODIPine (NORVASC) 10 mg Oral Tablet Take 10 mg by mouth daily. 06/20/19 23 Active fluticasone propionate (FLONASE) 50 mcg/actuation Nasl [place], Suspension fluticasone propionate 50 mcg/actuation nasal spray,suspensio n Active losartan (COZAAR) 100 mg Oral Tablet losartan 100 mg tablet TAKE ONE TABLET BY MOUTH DAILY Active venlafaxine (EFFEXOR-XR) 75 mg Oral Capsule, Sust. Release 24 hrIndications: Mixed headache Take 1 Capsule by mouth daily for 180 days. Take one capsule daily 90 Capsule 1 11/05/19 25 026 Active pantoprazole (PROTONIX) 40 mg Oral Tablet, Delayed Release (E.C.) TAKE ONE TABLET BY MOUTH TWICE DAILY 180 Tablet 02/16/20 25 Active pantoprazole (PROTONIX) 40 mg Oral Tablet, Delayed Release (E.C.) Take 1 Tablet by mouth 2 times daily. 180 Tablet 1 02/17/20 24 025 Discontinued Active Problems Problem Noted Date Diagnosed Date Microcytic anemia 07/15/2022 Anemia due to chronic blood loss 07/15/2022 Malabsorption syndrome 07/15/2022 Encounters Date Type Department Care Team Description 02/14/2025 Refill [facility] [address], 3[address] [place] [address] Fransisco Mariscal MD Medication Refill 01/13/2025 Refill [facility] [address], 3[address] [place] [address] Fransisco Marisacl MD Medication Refill 12/15/2024 1:30 PM EDT - 12/15/2024 11:59 PM EDT Hospital Encounter [facility] [address] [place] [address] Referral, Self Encounter for screening mammogram for malignant neoplasm of breast Discharge Disposition: Home or Self Care from Last 3 Months Surgical History Surgery Date Site/Laterality Comments SECTION TUBAL LIGATION CHOLECYSTECTOMY BREAST BIOPSY 04/06/2022 - 04/05/2023 Left done at [facility]. benign bx. Medical History Medical History Date Comments Hypertension Heartburn Social History Tobacco Use Types Packs/Day Years Used Date Smoking Tobacco: Never Passive Smoke Exposure: Never Smokeless Tobacco: Never Tobacco Cessation:Counseling Given: Not Answered Alcohol Use Standard Drinks/Week Comments Yes 24 (1 standard drink = 0.6 oz pu re alcohol) Sexually Active Control Partners Comments Yes Surgical Male Tubal Comments No Sex and Gender Information Value Date Recorded Sex Assigned at Not on file Legal Sex Female 8:27 AM EST Gender Identity Not on file Sexual Orientation Not on file Obstetrics History Para Term AB IAB SAB Ectopic Multiple Livin g Live Births 3 3 3 0 0 0 0 0 0 3 3 Date Outcome GA Total Labor Labor/2nd/3rd Weight Sex Type Anes PTL Yumiko A1 A5 Name Clin Term Term Term Last Filed Vital Signs Vital Sign Reading Time Taken Comments Blood Pressure 138/86 07/28/2024 11:25 AM EDT Pulse 83 07/28/2024 11:25 AM EDT Temperature 37 C (98.6 F) 07/28/2024 11:25 AM EDT Respiratory Rate 16 12/09/2022 2:26 PM EDT Oxygen Saturation 97% 07/28/2024 11:25 AM EDT Inhaled Oxygen Concentration - - Weight 84.4 kg (186 lb) 12/15/2024 2:02 PM EDT Height 167.6 cm (5' 6 ) 12/15/2024 2:02 PM EDT Body Mass Index 30.02 12/15/2024 2:02 PM EDT Plan of Treatment Upcoming Encounters Date Type Department Care Team (Late st Contact Info) Description 03/09/2025 10:15 AM EST Office Visit [facility] [address] [place] [phone] Israel Bailon MD [address] [place] [address] [place] [id number] Health Maintenance Due Date Last Done Comments Annual Wellness Exam 1976 Hepatitis B Vaccine (1 of 3 - 19+ 3-dose series) 1992 Cervical Cancer Screening 1994 Pap Smear 1994 HPV/Pap Cotest 2003 FIT 2018 Sigmoidoscopy 2018 Virtual Colonography 2018 Pneumococcal Vaccine 50+ (1 of 1 - PCV) 2023 Zoster (1 of 2) 2023 Cologuard 02/01/2024 01/31/2021 COVID-19 Vaccine (4 - 2024-2 6 season) 2024 04/19/2021, 07/10/2020, 06/12/2020 Influenza Vaccine (#1) 2024 4, 01/12/2023, 12/25/2020 Breast Cancer Screening 12/15/2026 12/16/19 25, 12/14/2023 Colon Cancer Screening 12/09/2029 Colonoscopy 12/09/2029 12/09/2022 DTaP/TDaP/Td (2 - Td or Tdap) 06/25/2031 06/24/2021 Meningococcal B Vaccine Aged Out No l onger eligible based on patient's age to complete this topic Procedures Procedure Name Priority Date/Time Associated Diagnosis Comments MM MAMMO DIGITAL KARLO SCREEN BILAT Routine 12/15/2024 2:12 PM EDT Encounter for screening mammogram for malignant neoplasm of breast COLONOSCOPY Routine 12/09/2022 1:49 PM EDT Iron deficiency anemia, unspecified iron deficiency anemia type from Last 3 Months or Most Recently Relevant to Health Maintenance Results * MM MAMMO DIGITAL KARLO SCREEN BILAT (12/15/2024 2:12 PM EDT) Anatomical Region Laterality Modality Breast Bilateral Mammography 12/15/2024 2:12 PM EDT Impressions 12/15/2024 2:38 PM EDT Benign ([id number]) RECOMMENDATION: Routine Screening Mammogram in 1 Year Bilateral . . COMMENTS: DISCLAIMER *The patient was notified by MyChart or mail of the results for this examination. *The patient's information was entered into a reminder system with a target due date for the next breast imaging, in accordance with the [employer] and the Society of Breast Imaging recommendations. *Breast Imaging has a false negative rate of 15%. *Any patient with a palpable abnormality, unexplained by breast imaging, should be managed on a clinical basis by the attending physician. Narrative 12/15/2024 2:38 PM EDT EXAM: MM MAMMO DIGITAL KARLO SCREEN BILAT EXAM DATE: 12/15/2024 2:12 PM INDICATION: Z12.31-Encounter for screening mammogram for malignant neoplasm of [id number] COMPARISON STUDIES: Compared with prior studies the most recent being 12/14/2023 MM MAMMO DIGITAL KARLO SCREEN BILAT at [facility] TISSUE DENSITY: There are scattered areas of fibroglandular density. FINDINGS: No mammographic evidence of malignancy. Stable tissue pattern adjacent to biopsy marker in the left breast. Procedure Note Marques iRco MD - 12/15/2024 EXAM: MM MAMMO DIGITAL KARLO SCREEN BILAT EXAM DATE: 12/15/2024 2:12 PM INDICATION: Z12.31-Encounter for screening mammogram for malignantneoplasm of [id number] COMPARISON STUDIES: Compared with prior studies the most recent being 12/14/2023 MM MAMMO DIGITAL KARLO SCREEN BILAT at [facility] TISSUE DENSITY: There are scattered areas of fibroglandular density. FINDINGS: No mammographic evidence of malignancy. Stable tissue patternadjacent to biopsy marker in the left breast. IMPRESSION: Benign ([id number]) RECOMMENDATION: Routine Screening Mammogram in 1 Year Bilateral . . COMMENTS: DISCLAIMER *The patient was notified by MyChart or mail of the results for this examination. *The patient's information was entered into a reminder system with atarget due date for the next breast imaging, in accordance with the [employer] and the Society of Breast Imaging recommendations. *Breast Imaging has a false negative rate of 15%. *Any patient with a palpable abnormality, unexplained by breast imaging,should be managed on a clinical basis by the attending physician. Tarik Gaoig Deanna [facility] [place] MAMMOGRAPHY ORDERABLES Final Result * COLONOSCOPY (12/09/2022 1:49 PM EDT) Anatomical Region Laterality Modality Endoscopy Narrative 12/09/2022 2:02 PM EDT Table formatting from the original result was not included. Findings The terminal ileum appeared normal. Two 2 mm sessile polyps in the cecum; performed complete en bloc removal by cold forceps biopsy One 4 mm sessile polyp in the rectum; completely removed en bloc by cold snare and retrieved specimen Few diverticula in the sigmoid colon Recommendation Await pathology results Repeat colonoscopy in 5-10 years depending on pathology results Indication Iron deficiency anemia, unspecified iron deficiency anemia type Staff Staff Role Tianna Ramos MD Anesthesiologist Anahi Shaw, cadmium burner Nurse Erlinda Zelaya RN Parts Professional KERVIN Walton CRNA, MD Performing Provider Dudley Irwin CRNA CRNA Medications See Anesthesia Record. Preprocedure A history and physical has been performed, and patient medication allergies have been reviewed. The patient's tolerance of previous anesthesia has been reviewed. The risks and benefits of the procedure and the sedation options and risks were discussed with the patient. All questions were answered and informed consent obtained. ASA 2 - Patient with mild systemic disease Details of the Procedure The patient underwent monitored anesthesia care, which was administered by an anesthesia professional. The patient's blood pressure, heart rate, level of consciousness, oxygen, respirations, ECG and ETCO2 were monitored throughout the procedure. A digital rectal exam was performed. The scope was introduced through the anus and advanced to the terminal ileum. Retroflexion was performed in the rectum. The quality of bowel preparation was evaluated using the [place] Bowel Preparation Scale with scores of: right colon = 3, transverse colon = 3, left colon = 3. The total BBPS score was 9. Bowel prep was adequate. The patient experienced no blood loss. The procedure was not difficult. The patient tolerated the procedure well. There were no apparent adverse events. Patient provided education and educated on specific discharge instructions. Patient educated on medications given during the procedure and new medications for discharge. Patient verbalizes understanding of discharge education. Patient stable and awaiting transport for discharge. Events Procedure Events Event Event Time ENDO SCOPE IN TIME 12/09/2022 1:20 PM ENDO SCOPE OUT TIME 12/09/2022 1:28 PM ENDO SCOPE IN TIME 12/09/2022 1:32 PM ENDO CECUM REACHED 12/09/2022 1:36 PM ENDO SCOPE OUT TIME 12/09/2022 1:46 PM Specimens ID Type Source Tests Collected by Time 1 : Gastric polyps x 3 via hot snare Tissue Gastric PATHOLOGY TISSUE REQUEST Fransisco Mariscal MD 12/09/2022 1328 2 : Cecum polyps x 2 via forceps Tissue Large Intestine, Cecum PATHOLOGY TISSUE REQUEST Fransisco Mariscal MD 12/09/2022 1338 3 : Rectal polyp via cold snare Tissue Rectum PATHOLOGY TISSUE REQUEST Fransisco Mariscal MD 12/09/2022 1345 Fransisco Andrews MD ENDOSCOPY PROCEDURE ORDERA BLES Final Result from Last 3 Months or Most Recently Relevant to Health Maintenance Insurance HELLEN PPO HELLEN PPO Care Teams Director Revenue Relationship Specialty Start Date End Date Fortino Castro MD [address] [facility] [place] [address] Medical Oncologist Internal Medicine-Hematology and Oncology 09/29/22
== END 2025-02-17 23:59 | disposition home or self-care (01) ==
LOC: RAD 08:32
PROVIDERS: PCP Family Medicine; Visit Provider Internal Medicine
DX: N13.30 Unspecified hydronephrosis (principal); K83.8 Other specified diseases of biliary tract; K76.0 Fatty (change of) liver, not elsewhere classified; E80.4 Gilbert syndrome; F10.90 Alcohol use, unspecified, uncomplicated; R07.9 Chest pain, unspecified; Z90.49 Acquired absence of other specified parts of digestive tract
CPT/HCPCS: 76700

== ENCOUNTER 2025-02-22 08:59 | Outpatient (CLI) | payer BC, SELFPAY ==
--- NOTE | 2025-02-22 10:00 | CT_ITS ---
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 A noncontrast coronary calcium scan was performed. A CT attenuation threshold of 130 Hounsfield units (HU) was used for the detection of calcium in contiguous voxels of 1 sq mm in area to be counted as individual lesions. Bolus tracking in the ascending aorta with a threshold of 180 HU was performed. Immediately afterwards, ECG synchronized cardiac CT was then performed from the cardiac base to apex using retrospective gating with ECG tube current modulation. A total of 85 mL of Isovue 370 mg/mL contrast medium was administered at 5 mL/sec followed by a saline flush using a biphasic injection protocol. A tube voltage of 120 KVp was used. The patient received the following medications prior to the cardiac CT. 0.8 mg of sublingual nitroglycerin The average heart rate at the time of acquisition was 59 bpm and regular. Image Reconstruction Transaxial images were reconstructed at 0.67 mm slide thickness. Data was reviewed interactively on an advanced workstation capable of 2 and 3-dimensional displays in all conventional reconstruction formats, including multiplanar reformations, maximum intensity projections, curved multiplanar reformations, and volume rendered reconstructions. When applicable, selected routine images describing the relevant coronary anatomy and pathology were saved and sent to PACS. Complications None Technical Quality Overall image quality was good. Coronary artery opacification was adequate. Total DLP (Dose-Length Product) is 1367.7 mGy-cm. The reported value represents the total of one or more individual components during the CT acquisition of this date and at this time, and as such, the same value may appear in more than one CT report depending on the interpreting/reporting physicians. COMPARISON None FINDINGS CT Coronary Calcium Scoring LMA (Left Main Artery) = 0 LAD (Left Anterior Descending) = 0 LCX (Left Coronary Circumflex) = 0 RCA (Right Coronary Artery) = 0 Total Calcium Score = 0 using the AJ-130 method. The interpretation of the calcium heart score is based on the following continuum*: 0 = no calcified plaque detected (risk of coronary artery disease is very low ??? less than 5%) 1-10 = calcium detected in extremely minimal levels (risk of coronary diseases is still low ??? less than 10%) 11-100 = mild levels of plaque detected with certainty (mild or minimal narrowing of heart arteries is likely) 101-400 = definite,at least moderate levels of plaque detected (relatively high risk of a heart attack within 3-5 years) >401-999 = extensive levels of plaque detected (high risk of heart attack, high levels of vascular disease are present, high likelihood of at least one significant coronary narrowing) *The calcium heart score quantifies the burden of coronary calcification/plaque in the coronary arteries. The calcium heart score is not able to evaluate the presence or burden of non-calcified (i.e. soft) plaque. There is no identifiable calcification in the aortic valve, mitral annulus or mitral valve, pericardium, or myocardium. Coronary CT Angiography The coronary arterial system is right dominant. Quantitative Stenosis Grading: Left Main (LM): The left main originates normally from the left sinus of Valsalva. The LM bifurcates into the left anterior descending artery and left circumflex artery. The LM is patent with no evidence of atherosclerosis. Left Anterior Descending (LAD) and Diagonal Branches: The LAD gives off 3 diagonal branch(es). The LAD and its branches are patent with no evidence of atherosclerosis. There is no evidence of LAD-myocardial bridge. Left Circumflex (LCX) and Obtuse Marginals (OM): The LCX gives off 1 Obtuse Marginal (OM) branch(es). The LCX and its branches are patent with no evidence of atherosclerosis. Right Coronary Artery (RCA): The RCA originates normally from the right sinus of Valsalva. The RCA gives off a posterior descending artery (PDA) and posterolateral (PL) branches. The RCA and its branches are patent with no evidence of atherosclerosis. Non-Coronary Cardiac Findings: Analysis of the left ventricular (LV) structure and function was performed after 3-D reconstruction of the LV from axial images, with user-corrected automatic contouring for assessment of LV volumes and user-defined reconstruction from oblique planes for measurement of 3-D cardiac structure and function. -The left ventricle systolic function is normal. -There is no left atrial appendage filling defect. Two right pulmonary veins and two left pulmonary veins drain normally into the left atrium. -No pericardial thickening or calcification. -Central and branch pulmonary arteries in the [id number] are unremarkable. -Thoracic aorta within the visualized thoracic aortic-branches in the [id number] is unremarkable. Extracardiac Structures No significant extra-cardiac findings. Note, however, that this study is focused on the cardiac findings. IMPRESSION -Absence of coronary calcification with an Agatston score = 0 using the AJ-130 method. -No evidence of significant flow-limiting atherosclerosis of the coronary arteries. -CAD-RADS 0. Management recommendations per ACC/AHA guidelines*, as clinically appropriate. *Recommendations: CAD RADS 0: Reassurance. Consider non-atherosclerotic causes of chest pain. CAD RADS 1: Consider non-atherosclerotic causes of chest pain. Consider preventive therapy and risk factor modification. CAD RADS 2: Consider non-atherosclerotic causes of chest pain. Consider preventive therapy and risk factor modification, particularly for patients with nonobstructive plaque in multiple segments. CAD RADS 3: Consider further functional testing. Consider symptom-guided anti-ischemic and preventive pharmacotherapy as well as risk factor modification per published guideline statements. CAD RADS 4A: Consider further functional testing or invasive coronary angiography with revascularization per published guideline statements. Consider symptom-guided anti-ischemic and preventive pharmacotherapy as well as risk factor modification per published guideline statements. CAD RADS 4B: Invasive coronary angiography recommended with revascularization per published guideline statements. Consider symptom-guided anti-ischemic and preventive pharmacotherapy as well as risk factor modification per published guideline statements. CAD RADS 5: Consider invasive angiography and/or viability assessment with revascularization per published guideline statements. Consider symptom-guided anti-ischemic and preventive pharmacotherapy as well as risk factor modification per published guideline statements. CRITICAL RESULT None COMMUNICATION Per this written report The coronary and cardiac findings of this CCTA were reviewed, reported, and signed by Luis Enrique Zarate MD (Nuclear Physics Teacher) Conclusion Electronically signed by : Мария Zarate MD 02/22/2025 21:18:03
[2025-02-22 10:31] VITALS: BMI 29.0
[2025-02-22 10:37] VITALS: BP 116/68; PULSE 56; RESP 17; O2SAT 95
[2025-02-22 11:07] LABS: Anion Gap 6.8 mEq/L (5-15); Blood Urea Nitrogen 12 mg/dl (7-17); Calcium 9.4 mg/dl (8.4-10.2); Carbon Dioxide 29 mmol/L (22.0-30.0); Chloride 99 mmol/L (98-107); Creatinine Clearance Estimated 123 mL/min (50-200); Creatinine,Serum 0.70 mg/dl (0.52-1.04); Estimated Glomerular Filt Rate 88 ml/min (>60); GFR (African American) 107 ML/MIN (>60); Glucose 102 mg/dl (74-100); Potassium 3.8 mmoL/L (3.5-5.1); Sodium 131 mmol/L (136-145)
[2025-02-22 11:09] LABS: HCG Qualitative, Serum Negative (Negative)
[2025-02-22 11:25] VITALS: BP 141/86; PULSE 63; RESP 18; O2SAT 98
[2025-02-22] MEDS: NITROGLYCERIN 0.4MG SL TABLET SL (11:25)
[2025-02-22 11:30] VITALS: BP 142/80; PULSE 64; RESP 18; O2SAT 98
[2025-02-22] MEDS: 0.9 % SODIUM CHLORIDE 50 ML VIAL IV (11:32)
[2025-02-22] MEDS: IOPAMIDOL-370 (76%);100ML BOTTLE 85 ML IV (11:32)
[2025-02-22] MEDS: SODIUM CHLORIDE 0.9% 10ML SYR (RAD ONLY) 10 ML IV (11:32)
[2025-02-22 11:35] VITALS: BP 102/65; PULSE 62; RESP 18; O2SAT 97
[2025-02-22 11:45] VITALS: BP 95/62; PULSE 67; RESP 18; O2SAT 95
== END 2025-02-22 23:59 | disposition home or self-care (01) ==
LOC: RAD 08:59
PROVIDERS: PCP Family Medicine; Visit Provider Internal Medicine
DX: R94.31 Abnormal electrocardiogram [ECG] [EKG] (principal); R07.9 Chest pain, unspecified; I10 Essential (primary) hypertension; F10.90 Alcohol use, unspecified, uncomplicated; Z82.49 Family history of ischemic heart disease and other diseases of the circulatory system; R17 Unspecified jaundice
CPT/HCPCS: 75574; 80048; 84703; Q9967